=== PATIENT | male | born 1955 | race Two or more races ===

== ENCOUNTER 2024-12-02 08:37 | Outpatient (AMB) | payer OTHER, SELFPAY ==
--- NOTE | 2024-12-02 08:44 | MHC.PC.OV ---
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 Accompanied by: Son Allergies No Known Allergies Allergy (Verified 12/02/24 09:06) Medication List - Last Reconciled 12/02/24 by Laura Orlando MD apixaban (Eliquis) 5 mg PO BID cholecalciferol (vitamin D3) 25 mcg PO DAILY dapagliflozin propanediol (Farxiga) 5 mg PO DAILY dulaglutide (Trulicity) 3 mg subcut QWEEK finasteride 5 mg PO DAILY furosemide 20 mg PO DAILY glimepiride 4 mg PO DAILY losartan 25 mg PO DAILY metoprolol succinate ER 50 mg PO BID omega-3 fatty acids 1,000 mg PO DAILY rosuvastatin 40 mg PO DAILY tamsulosin 0.4 mg PO DAILY Tobacco use date assessed: 12/02/24 Fall risk assessment: 2 + Falls in past year Last assessed Fall Risk: 12/02/24 Dental Screening Dental Screen Date: 12/02/24 Did you have a dental visit in the last 12 months?: Yes Did you have a dental problem in the last 6 months where you did not have access to dental care?: No Was dental information given to patient?: Patient has dentist HPI HPI Comments History of Present Illness Details The patient is a 69-year-old male presenting with a history of atrial fibrillation, for which he is on anticoagulation therapy with Eliquis. This condition was identified several years ago while residing in [place]. A defibrillator was placed to manage atrial fibrillation. He has a history of benign prostatic hyperplasia, managed with medication, and no known drug allergies. His medical regimen also includes Farxiga and Trulicity for type 2 diabetes mellitus. The diabetes medication adjustment was due to a recent hemoglobin A1c reading of 8.0%, requiring increased medication management. Heart failure is managed with furosemide, and he monitors daily weight for fluid retention signs. He also has a history of hypertension, managed with losartan, and hyperlipidemia treated with rosuvastatin. Metoprolol and tamsulosin are included in his medications. The patient recalls frequent consultations with his classroom monitor every two months for ongoing check-up and mentions chronic kidney issues related to diabetes. He denies any medication allergies and manages his medication regimen daily. [facility] Surgical History History of cataract surgery History of pacemaker History of back surgery Family History Father No problems noted. Mother Alzheimer disease Social History Housing: House Alcohol intake: current Alcohol intake frequency: holidays/special occasions only Alcohol type: beer Patient Tobacco Use Status: Never used Tobacco e-Cigarette/Vaping Use: Never Used Second Hand Smoke Exposure: No service: No Current occupational status: retired Cognitive needs: Yes Hearing needs: No Vision needs: Yes Questionnaire PHQ-9 Over the last 2 weeks, how often have you been bothered by any of the following problems? 1. Little interest or pleasure in doing things: not at all 2. Feeling down, depressed, or hopeless: not at all 3. Trouble falling or staying asleep, or sleeping too much: not at all 4. Feeling tired or having little energy: not at all 5. Poor appetite or overeating: not at all 6. Feeling bad about yourself - or that you are a failure or have let yourself or your family down: not at all 7. Trouble concentrating on things, such as reading the newspaper or watching television: not at all 8. Moving or speaking so slowly that other people could have noticed. Or the opposite - being so fidgety or restless that you have been moving around a lot more than usual: not at all 9. Thoughts that you would be better off or of hurting yourself in some way: not at all Total score: 0 Depression Screening Interpretation: Negative Depression Screening Done: Yes 71557 - PHQ-9 Billing: Yes Source: Developed by Drs. Dave Thomason, Tuyet Pang, Zaki Schulz and colleagues, with an educational damien from [employer]. Thrive Questionnaire Date Thrive assessed: 12/02/24 I am a: Patient What is your living situation today?: I choose not to answer this question Within the past 12 months, did the food you bought not last and you didn't have the money to get more?: I choose not to answer this question Within the past 12 months, did you worry whether your food would run out before you got money to buy more?: I choose not to answer this question Do you have trouble paying for medicines?: No Do you have trouble getting transportation to medical appointments?: I choose not to answer this question Do you have trouble paying your heating and electricity bill?: I choose not to answer this question Do you have trouble taking care of your child, family member or friend?: I choose not to answer this question Do you have trouble with day-to-day activities such as bathing, preparing meals, shopping, managing finances, etc.?: I choose not to answer this question Are you currently unemployed and looking for a job?: I choose not to answer this question Are you interested in more education?: I choose not to answer this question Please select the resources that you would like help with: None Currently or been in a relationship where the following occur: I choose not to answer THRIVE Score: 0 AUDIT C Alcohol Use Questionnaire (AUDIT-C) 1. How often do you have a drink containing alcohol?: Never Total Score: 0 Score Reviewed/Action Taken: No MYRA-7 AMB Questionnaire MYRA-7 Date MYRA - 7 assessed: 12/02/24 Feeling nervous, anxious, or on edge: 0 = Not at all Not being able to stop or control worryin = Not at all Worrying too much about different things: 0 = Not at all Trouble relaxin = Not at all Being so restless that it is hard to sit still: 0 = Not at all Becoming easily annoyed or irritable: 0 = Not at all Feeling afraid as if something awful might happen: 0 = Not at all Total MYRA-7 score (0-4 normal; 5-9 mild; 10-14 moderate; 15-21 severe): 0 Source: Developed by Drs. Dave Thomason, Tuyet Pang, Zaki Schulz and colleagues, with an educational damien from [employer]. MYRA-7 Assessment Billing MYRA-7 Assessment Tool: MYRA-7 Assessment 35139 Review of Systems Const All systems reviewed & are unremarkable except as noted in HPI and below Card Denies chest pain at rest, Denies chest pain with activity, Denies edema, Denies irregular heart rhythm, Denies claudication, Denies dyspnea, Denies dyspnea on exertion, Denies orthopnea, Denies paroxysmal nocturnal dyspnea and Denies slow heart rate Resp Denies cough, Denies dyspnea and Denies dyspnea on exertion GI Denies abdominal pain, Denies change in bowel habits, Denies excessive flatus, Denies nausea and Denies vomiting Physical exam (Primary Care) Vital Signs: Last Vital Signs Pulse 89 12/02/24 08:46 BP 126/70 12/02/24 08:46 Pulse Ox 98 12/02/24 08:46 Oxygen Delivery Method Room Air 12/02/24 08:46 BMI result Body Mass Index 24.0 Tobacco/Smoking Status: Tobacco use Status Tobacco use date assessed 12/02/24 12/02/24 08:59 Patient Tobacco Use Status Never used Tobacco 12/02/24 08:59 e-Cigarette/Vaping Use Never Used 12/02/24 08:59 PHQ-9: PHQ-9 Score PHQ-9: Total score 0 12/02/24 09:14 Depression Screening Interpretation: Negative Thrive Assessment: Date of Thrive Assessment Date Thrive assessed 12/02/24 12/02/24 08:47 Currently or been in a relationship where the following occur: I choose not to answer Const Limitations: ambulation with cane Resp Effort & Inspection: normal respiratory effort Auscultation: clear to auscultation bilaterally Cardio Jugular venous distension: no JVD Rate: regular rate Rhythm: regular rhythm Heart sounds: S1 normal heart sound present and S2 normal heart sound present Extrem General: Yes full ROM Coding Level of Care Code New Pt Level 4 (10733) Complex EM visit Add On G2211 Diagnoses Type 2 diabetes mellitus with hyperglycemia, without long-term current use of insulin E11.65 Diabetes mellitus type: type 2 Diabetes mellitus nursing home insulin use: without intermediate school teacher use Diabetes mellitus complication status: with hyperglycemia Essential hypertension I10 Hyperlipidemia LDL goal <70 E78.5 Chronic systolic (congestive) heart failure I50.22 BPH (benign prostatic hyperplasia) N40.0 Persistent atrial fibrillation I48.19 Additional Codes MYRA-7 Assessment Billing - MYRA-7 Assessment Tool: MYRA-7 Assessment 30023 ([id number]) PHQ-9 - 81184 - PHQ-9 Billing: Yes ([id number]) Time Spent (min) 25 Assessment & Plan Assessment & Plan (1) Diabetes mellitus: Code(s): E11.9 - Type 2 diabetes mellitus without complications Category: Medical Qualifiers: Diabetes mellitus type: type 2 Diabetes mellitus nursing home insulin use: without nursing home use Diabetes mellitus complication status: with hyperglycemia Qualified Code(s): E11.65 - Type 2 diabetes mellitus with hyperglycemia (2) Essential hypertension: Code(s): I10 - Essential (primary) hypertension Category: Medical (3) Hyperlipidemia LDL goal <70: Code(s): E78.5 - Hyperlipidemia, unspecified Category: Medical (4) Chronic systolic (congestive) heart failure: Code(s): I50.22 - Chronic systolic (congestive) heart failure Category: Medical (5) BPH (benign prostatic hyperplasia): Code(s): N40.0 - Benign prostatic hyperplasia without lower urinary tract symptoms Category: Medical (6) Persistent atrial fibrillation: Code(s): I48.19 - Other persistent atrial fibrillation Category: Medical Plan In managing the patient's conditions, continuing the anticoagulation Eliquis) and heart rate control for atrial fibrillation with the defibrillator were emphasized. The diabetes management plan included increasing Trulicity while continuing Farxiga, focusing on lowering the elevated A1c. Evaluating suspected chronic kidney disease and kidney function changes due to diabetes were noted. Chronic sinusitis was addressed with a nasal spray recommendation to relieve symptoms of headache and dizziness. Heart failure management was reinforced by continuing furosemide and daily weight checks. The importance of adhering to his current medication regimen for hypertension and hyperlipidemia was reiterated. Equipment for home safety remains under insurance approval, emphasizing stability to prevent falls. Patient was informed and verbally consented to the use of an ambient scribe for clinic note documentation during this visit. I discussed with the patient the importance of staying on the current medication regimen for atrial fibrillation, diabetes, blood pressure, and cholesterol management. The likely diagnosis of chronic sinusitis and its treatment with a nasal spray was explained, with expected symptom relief. We reviewed risks and benefits of all medications, particularly the adjustments necessary for diabetes management following the recent A1c results. I explained the potential impact of diabetes on kidney function and the rationale behind monitoring these changes. The patient was informed about the home safety equipment process and insurance approval timelines. We discussed the need for regular follow-ups with cardiologists and primary care to track progress and stability of chronic conditions. Orders: Orders Comprehensive [place]. Panel Fast 4 Months I50.22 - Chronic systolic (congestive) heart failure NT-proBNP 4 Months I50.22 - Chronic systolic (congestive) heart failure Vitamin B12 and Folate Today E53.8 - Deficiency of other specified B group vitamins Complete Blood Count Auto Diff Today D64.9 - Anemia, unspecified IRON PROFILE Today D64.9 - Anemia, unspecified Vitamin D 25-OH Total 4 Months E55.9 - Vitamin D deficiency, unspecified Microalbumin, Random (w Creat) 4 Months R80.9 - Proteinuria, unspecified Lipid Panel 4 Months E78.5 - Hyperlipidemia, unspecified Medications: New [safety toilet frame] As directed 1 ea 0RF M51.369 - Other intervertebral disc degeneration, lumbar region without mention of lumbar back pain or lower extremity pain Patient Instructions: - Continue taking all current medications as prescribed. - Use the nasal spray as discussed for sinusitis relief. - Monitor your weight daily and report any significant changes to your doctor. - Keep regular appointments with your classroom monitor every two months. - Follow up with your primary care for routine health evaluations. - Be mindful of medication adherence, especially with newly adjusted doses. - Watch for symptoms like chest pain or rapid weight changes and contact healthcare services if they arise.
[2024-12-02 08:46] VITALS: BP 126/70; PULSE 89; O2SAT 98; BMI 24.0
--- OUTSIDE RECORDS SUMMARY | 2024-12-02 09:03 | XMS_ITS | Clinical Summary ---
Author Organization [facility] Address [address] [place] [address] Care Team Providers Care Senior Hr Generalist Name Role Phone Carola Siddiqi PA-C Primary Care Provider Source Comments PLEASE NOTE, if this patient is a minor, it may be UNLAWFUL to discuss sensitive information that is contained in these records (such as FAMILY PLANNING, MENTAL HEALTH or SUBSTANCE ABUSE) with the minor patient's parent or other person without the patient's specific authorization.[facility] Allergies No known active allergies Medications cholecalciferol, vitamin D3, 25 mcg (1,000 unit) tablet Take 1 Tablet by mouth once daily Active ammonium lactate 12 % cream 021 Active blood-glucose meter monitoring kitIndications:T ype 2 diabetes mellitus with diabetic cataract, without long-term current use of insulin ([facility]) Use to check BG 1x/d DX E11.42 Freestyle Lite 1 Each 022 Active ELIQUIS 5 mg tabIndications:H /O right heart catheterization, AICD (automatic cardioverter/def ibrillator) present Take 1 Tablet by mouth 2 (two) times daily 180 Tablet 1 022 Active finasteride (PROSCAR) 5 mg tablet Take 5 mg by mouth 04/13/2022 FINASTERIDE 5 MG TABLET [place], [place] [phone] 90.00 Each 2 90 2 Outside Sources Authorized by: FRITZ CARLIN Active metoprolol succinate (TOPROL-XL) 50 mg 24 hr tablet Take 75 mg by mouth 04/13/2022 METOPROLOL SUCC ER 50 MG TAB [place], [place] [phone] 270.00 Each 1 90 2 Outside Sources Authorized by: MIKE MARSHALL 022 Active tamsulosin (FLOMAX) 0.4 mg 24 hr capsule Take 0.4 mg by mouth Active metoprolol tartrate (LOPRESSOR) 50 mg tablet twice a day Active MISCELLANEOUS MEDICAL SUPPLY MISCIndications: Stress incontinence of urine by miscellaneous route once daily Male incontinence pads. DX: urinary incontinence SOBIA: 99 100 Each 3 024 Active ketorolac (ACULAR) 0.5 % ophthalmic solution 024 Active prednisoLONE acetate (PRED-FORTE) 1 % ophthalmic suspension 024 Active tadalafiL (CIALIS) 5 mg tablet Take 1 Tablet by mouth as needed Active blood pressure kit med and lrgIndications:P rimary hypertension Medium blood pressure kit SOBIA: 99 DX: htn 1 Kit 024 Active MISCELLANEOUS MEDICAL SUPPLY MISCIndications: Gait instability by miscellaneous route once daily Raised toilet seat with handles DX: urinary incontinence, gait instability SOBIA: 99 1 Each 024 Active losartan (COZAAR) 25 mg tabletIndication s:Primary hypertension [place] 1 tableta por vIa oral erick vez al [place] 90 Tablet 1 024 Active rosuvastatin (CRESTOR) 40 mg tabletIndication s:Type 2 diabetes mellitus with diabetic cataract, without long-term current use of insulin ([facility]) [place] 1 tableta por via oral erick vez al tyrone 90 Tablet 1 024 Active lancets (FREESTYLE LANCETS) 28 gaugeIndications :Type 2 diabetes mellitus with diabetic cataract, without long-term current use of insulin ([facility]) Uselo para comprobar la DARION GLUCOSA DIARIA 100 Each 025 Active blood sugar diagnostic (FREESTYLE LITE STRIPS) stripsIndication s:Type 2 diabetes mellitus with diabetic cataract, without long-term current use of insulin ([facility]) [place]selo para comprobar la DARION GLUCOSA DIARIA 100 Each 025 Active MISCELLANEOUS MEDICAL SUPPLY MISCIndications: Diabetic polyneuropathy associated with type 2 diabetes mellitus (HCC-CMS),Type 2 diabetes mellitus with diabetic cataract, without long-term current use of insulin ([facility]) by miscellaneous route daily 1 pair of diabetic shoes with inserts DX: DM, polyneuropathy secondary to DM SOBIA: 99 1 Each 025 Active amoxicillin (AMOXIL) 500 mg capsuleIndicatio ns:Encounter for dental examination Take 1 Capsule by mouth 1 (one) time as needed for other reason (premedication) for up to 1 dose Take 4 capsules 30 min to 1 hr before the dental dania 16 Capsule 025 Active glimepiride (AMARYL) 2 mg tabletIndication s:Type 2 diabetes mellitus with hyperglycemia, without long-term current use of insulin ([facility]) TAKE ONE TABLET BY MOUTH IN THE MORNING AND TWO TABLET IN THE EVENING 270 Tablet 1 025 Active dapagliflozin propanediol (FARXIGA) 10 mg tabIndications:T ype 2 diabetes mellitus with diabetic polyneuropathy, without long-term current use of insulin ([facility]) [place] 1 tableta por vIa oral a diario. 90 Tablet 1 025 Active dulaglutide (TRULICITY) 4.5 mg/0.5 mL pen injectorIndicati ons:Type 2 diabetes mellitus with diabetic polyneuropathy, without long-term current use of insulin ([facility]) Inject 4.5 mg into the skin once a week 2 mL 2 025 Active glimepiride (AMARYL) 2 mg tabletIndication s:Type 2 diabetes mellitus with hyperglycemia, without long-term current use of insulin ([facility]) Take 1 tablet by mouth in AM and 2 tablets in PM. DXE 11.36 270 Tablet 1 024 2024 Discontinued FARXIGA 10 mg tabIndications:T ype 2 diabetes mellitus with hyperglycemia, without long-term current use of insulin ([facility]) [place] 1 tableta por vIa oral a diario. 90 Tablet 1 024 2024 Discontinued(R eorder (E-Cancel Not Sent)) furosemide (LASIX) 20 mg tablet Take 1 Tablet by mouth daily as needed (edema). 024 2024 Discontinued(O utdated-Remove d from Med List (E-Cancel Not Sent)) dulaglutide (TRULICITY) 4.5 mg/0.5 mL pen injectorIndicati ons:Type 2 diabetes mellitus with diabetic cataract, without long-term current use of insulin ([facility]) Inject 4.5 mg into the skin once a week 2 mL 2 025 2024 Discontinued(R eorder (E-Cancel Not Sent)) Active Problems Problem Noted Date Diagnosed Date Orthostatic hypotension 04/10/2024 Overview (06/03/2024): Last Assessment & Plan: See plan above. Gait instability 12/05/2023 Acquired hammer toe of left foot 07/20/2022 Foot drop 02/14/2022 Overview (02/14/2022): Last Assessment & Plan: Would benefit from AFO Spinal stenosis 02/14/2022 Overview (02/14/2022): no surgery Last Assessment & Plan: With sig back pain and decreased mobility, no hx of surgery or injections, will need orthopedist eval Lumbar stenosis with neurogenic claudication 07/202212/21/2022 Overview (12/21/2022): Last Assessment & Plan: With sig back pain and decreased mobility, no hx of surgery or injections, will need orthopedist eval no surgery Last Assessment & Plan: Patient describes low back pain radiating to the hips and down to the calves for at least a year, he states the last week has been much worse, he is having to sleep with a lidocaine patch on his back, the pain radiates from the neck down to the low back. He denies any symptoms in the arms. He notes pain in the right >left legs (primarily the calves), has history of knee arthritis bilaterally. He has an exercise bike at home that he uses, feels good while he is using it and for a short time after, then the pain returns. He states he no longer goes out shopping, if he goes to the grocery store with his he stays in the car. He does not walk any significant distances, if they have to park the car they can park close to the building so he does not have to walk. He has been using a cane for about 6 years, has history of dizziness. When he used to go to the grocery store and walk around his legs would feel heavy and tired. He he states there are days when his pain is a 10/10, about 3 to 4 days a week. He has been taking Tylenol regularly to help his pain. Patient had MRI lumbar spine 10/19/2022 at [facility] that shows multilevel degenerative changes, his worst level is L4-5 with central stenosis, bilateral DJD and bilateral synovial cysts. I reviewed the MRI images in detail on the computer with the patient and his . Dr. Marie reviewed the MRI on today's visit as well. Mr. Le describes low back pain, bilateral leg symptoms, worse with walking distances. We talked about conservative treatment measures like PT or acupuncture, he asked about cortisone injections however I did let him know that can elevate his blood sugars. Dr. Marie can offer him L4-5 decompression to see if it will help with his walking symptoms and some back pain, patient is aware surgery is not aimed at helping all his chronic back pain. Patient would like to proceed with surgery if he is medically cleared. Patient has multiple medical issues, is on Eliquis, has a defibrillator, yesterday's labs showed creatinine elevated 1.59, GFR 47, he has history of an old VT. Patient has diabetes but his A1c yesterday was 8.0. I asked patient to call his PCP and appliance repair technician for medical clearance for surgery, he is aware he would have to be able to stop his Eliquis, see if they would want him bridging. We talked about the surgery, risks and benefits in detail, including but not limited to need for general anesthesia, risk for heart attack or stroke, damage to a nerve root, weakness, hematoma, infection, no improvement in symptoms. Hibiclens body wash and instruction sheet given to patient. All questions answered with professor of early childhood education, he will call with any concerns or additional questions. 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 -Continue warfarin for goal INR 2-3. If time in therapeutic INR range is suboptimal, he may be switched to a DOAC. Bilateral carpal tunnel syndrome 06/20/2021 Overview (02/14/2022): Last Assessment & Plan: Will likely need EMG/NCS of UE and CTR at least on R Microalbuminuria 04/05/2021 Type II diabetes mellitus wi th renal manifestations ([facility]) 04/05/2021 Diabetic polyneuropathy asso ciated with type 2 diabetes mellitus ([facility]) 12/24/2019 Overview (08/18/2021): Used to see podiatry (Dr. Hoyt) Benign prostatic hyperplasia with urinary hesita ncy 12/22/2019 Internal hemorrhoids 06/20/2019 CKD (chronic kidney disease) stage 3, GFR 30-59 ml/min ([facility]) 11/21/2018 Bilateral chronic knee pain 06/07/2017 Pulmonary hypertension ([facility]) 06/01/2017 Overview (08/18/2021): Severe, cardiac cath 10/11/2016 AICD (automatic cardioverter/defibrillator) pres ent 05/23/2017 Overview (08/18/2021): Single chamber, placed in [place] [facility] #[phone], #[phone]) Anxiety and depression 05/23/2017 B12 deficiency 05/23/2017 Chronic lumbar radiculopathy 05/23/2017 OA (osteoarthritis) of knee 05/23/2017 Overview (08/18/2021): See LS xray 2017 - mod-severe DJD hips, incompletely visualized. bilateral Diabetes mellitus with diabetic cataract ([facility]) 05/23/2017 Overview (08/18/2021): Bilateral GERD (gastroesophageal reflux disease) 7 Hypercholesteremia 05/23/2017 Hypertension 05/23/2017 Mitral valve regurgitation 05/23/2017 Systolic CHF (HCC-CMS) 05/23/2017 Overview (08/18/2021): S/p single chamber AICD EF 10-20 % Encounters Date Type Department Care Team Description 11/26/2024 Results Follow-Up [address] [phone] Morgan Martinez, PharmD 11/25/2024 1:40 PM EDT Office Visit [facility] [address] [place] [phone] Morgan Martinez, PharmD Type 2 diabetes mellitus with diabetic polyneuropathy, without long-term current use of insulin ([facility]) (Primary Dx); Primary hypertension 11/20/2024 10:00 AM EDT Office Visit [facility] [address] [place] [phone] Survey Worker, Bu Non-restorable tooth (Primary Dx); Caries of dentin 11/06/2024 3:00 PM EDT Office Visit [address] [phone] Survey Worker, Bu Encounter for dental examination (Primary Dx) 10/29/2024 11:00 AM EDT Office Visit [address] [phone] Survey Worker, Bu Non-restorable tooth (Primary Dx) 10/21/2024 2:20 PM EDT Office Visit [address] [phone] [place] DDS Encounter for dental examination (Primary Dx) 10/09/2024 1:00 PM EST Office Visit [address] [phone] Phil Xiong, Alisha Gallegos Diabetic polyneuropathy associated with type 2 diabetes mellitus ([facility]); Type 2 diabetes mellitus with diabetic cataract, without long-term current use of insulin ([facility]) 10/09/2024 Interim Notes [address] [phone] Judy Rogel MA 09/09/2024 Interim Notes [facility] [address] [place] [phone] Julieta Pino MA from Last 3 Months Immunizations Immunization Administration Dates Next Due Flu, Adjuvant, 65y+ (Fluad) 05/23/2017 Flu, Cell Culture based, Mul ti Dose, 6m+, Flucelvax 06/09/2018,06/09/2018 Flu, Cell Culture based, Pre servative Free, 6m+, Flucelvax 05/20/2020,05/20/2020,06/15/2019,06/15 Flu, High Dose, 65y+, Fluzon e High Dose 05/23/2023 Influenza (FLUZONE), high-do se, trivalent, PF 04/15/2024,06/09/2022,05/05/2021 Moderna COVID-19 Vaccine, re d cap blue label, 12+ Primary Series 03/25/2022,11/05/2020,10/08/2020 PNEUMOCOCCAL CONJUGATE PCV 13 04/05/2021, 021 PNEUMOCOCCAL CONJUGATE PCV 2 0 (Prevnar) 06/03/2024 PNEUMOCOCCAL POLYSACCHARIDE PPV23 06/16/2016 TDAP 06/16/2016 ZOSTER VACCINE, RECOMBINANT (SHINGRIX) ,12/21/2022 Zoster, Live Vaccine (Zostavax) 06/16/2016 Family History Medical History Relation Name Comments Diabetes Brother Heart attack Brother Heart attack Father Kidney disease Father Alzheimer's Disease Mother Cancer Sister Diabetes Sister Relation Name Status Comments Brother Father Mother Sister Social History Tobacco Use Types Packs/Day Years Used Date Smoking Tobacco: Never Passive Smoke Exposure: Never Smokeless Tobacco: Never Tobacco Cessation:Counseling Given: Not Answered Alcohol Use Standard Drinks/Week Comments Yes 1 (1 standard drink = 0.6 oz pur e alcohol) ocassional Social Connections Answer Date Recorded Connectedness 1 01/30/2024 Financial Resource Strain Answer Date R ecorded Financial Resource Strain 1 2023 Stress Answer Date Recorded Stress 1 01/30/2024 Physical Activity Answer Date Recorded Physical Activity 0 09/22/2020 Food Insecurity Answer Date Recorded Food 1 01/30/2024 Transportation Needs Answer Date Record ed Transportation 1 01/30/2024 Housing Stability Answer Date Recorded Housing 1 01/30/2024 Safety and Environment Answer Date Jayme rded Safety 1 01/30/2024 Utilities Answer Date Recorded Utilities 1 01/30/2024 Employment Answer Date Recorded Stress 0 10/24/2021 Sex and Gender Information Value Date Recorded Sex Assigned at Male 06/01/2021 6:43 AM PDT Legal Sex Male 11:22 AM PDT Gender Identity Male 06/01/2021 6:42 AM PDT Sexual Orientation Straight 08/18/2021 12 :05 PM PST Last Filed Vital Signs Vital Sign Reading Time Taken Comments Blood Pressure 110/80 11/25/2024 1:38 PM EDT Pulse 63 11/25/2024 1:38 PM EDT Temperature 36.8 ??C (98.3 ??F) 10/09/2024 1:00 PM ES T Respiratory Rate 18 11/25/2024 1:38 PM EDT Oxygen Saturation 99% 11/25/2024 1:38 PM EDT Inhaled Oxygen Concentration - - Weight 84.4 kg (186 lb) 11/25/2024 1:38 PM EDT Height 185.4 cm (6' 1 ) 11/25/2024 1:38 PM EDT Body Mass Index 24.54 11/25/2024 1:38 PM EDT Plan of Treatment Upcoming Encounters Date Type Department Care Team (Late st Contact Info) Description 12/17/2024 10:20 AM EDT Office Visit [facility] [address] [place] [phone] Clement Shaw, DMD [address] [place] [address] 01/13/2025 1:40 PM EDT Office Visit [address] [phone] Morgan Martinez, PharmD [address] [place] [address] Health Maintenance Due Date Last Done Comments CT Colonography 2000 Colonoscopy 2000 Colorectal Cancer Screening 2000 FIT/gFOBT 2000 Fecal DNA 2000 Flexible Sigmoidoscopy 2000 Diabetes Foot Exam 01/20/2023 01/20/2022 Retinopathy Screening 09/14/2023 09/14/2022, 022 [id number] ( season) 2024 03/25/2022, 06/07/2021, 11/05/2020, Additional history exists Postponed from 04/06/2024 (Patient postponement) Depression Monitoring 01/09/2025 10/09/2024 , 01/30/2024, 10/30/2023, Additional history exists Falls Prevention 01/29/2025 01/30/2024, 09/29/2021 Medicare Annual Wellness Visit 01/29/2025 01/30/2024, 12/21/2022 Tobacco Screening 01/29/2025 01/30/2024 Urine Albumin Creatinine Ratio Screening 01/31/2025 02/01/2024, 12/21/2022, 09/21/2021 Diabetes HbA1c 02/24/2025 11/25/2024, 08/07, 05/08/2024, Additional history exists Dental Prophy 03/03/2025 09/01/2024, 01/04, 07/16/2023, Additional history exists Lipid Screening 06/13/2025 06/13/2024, 01/05, 02/01/2024, Additional history exists Serum Creatinine 06/13/2025 06/13/2024, , 01/03/2024, Additional history exists Dental BW 09/03/2025 09/01/2024, 01/04, 07/16/2023, Additional history exists Dental Examination 09/03/2025 09/01/2024, 0 01/16/2024, 07/16/2023, Additional history exists Dental Perio Charting 09/03/2025 09/01/2024 , 01/16/2024, 07/16/2023 Imm-DTaP/Tdap/Td (2 - Td or Tdap) 06/16/2026 06/16/2016 Dental FMX/Pano 12/18/2026 12/16/2021 Hepatitis C Screening Completed 12/21/2022 Imm-Zoster, Recombinant Completed 10/30/19 24, 12/21/2022, 06/16/2016 Imm-Influenza Completed 04/15/2024, 05/06, 06/09/2022, Additional history exists Imm-Pneumococcal 65+ Completed 06/03/2024, 04/05/2021, 04/05/2021, Additional history exists Alcohol and Drug Screen Completed 10/10/19, 01/30/2024, 10/30/2023, Additional history exists Procedures Procedure Name Priority Date/Time Associated Diagnosis Comments HGBA1C W/MPG Routine 11/25/2024 2:15 PM EDT Type 2 diabetes mellitus with diabetic polyneuropathy, without long-term current use of insulin ([facility]) GLUCOSE, BLOOD BY GLUCOSE MONITORING DEVICE (CLIA WAIVED)POCT Routine 11/25/2024 1:42 PM EDT Type 2 diabetes mellitus with diabetic polyneuropathy, without long-term current use of insulin ([facility]) INTRAORAL - PERIAPICAL FIRST RADIOGRAPHIC IMAGE Routine 11/20/2024 10:00 AM EDT Caries of dentin 13 EXTRACTION ERU TOOTH RQR REMV BONE &/SECTN TOOTH Routine 11/20/2024 10:00 AM EDT Non-restorable tooth Caries of dentin 12 EXTRACTION ERU TOOTH RQR REMV BONE &/SECTN TOOTH Routine 11/20/2024 10:00 AM EDT Non-restorable tooth Caries of dentin 11 EXTRACTION ERU TOOTH RQR REMV BONE &/SECTN TOOTH Routine 11/20/2024 10:00 AM EDT Non-restorable tooth Caries of dentin CASE PRESENTATION SUBS DTL & EXTENSIVE TX PLN Routine 11/20/2024 10:00 AM EDT Non-restorable tooth Caries of dentin 14 EXTRACTION ERUPTED TOOTH OR EXPOSED ROOT Routine 11/20/2024 10:00 AM EDT Non-restorable tooth Caries of dentin OTHER ORDERS SCANNED DOCUMENT 11/20/2024 3:00 AM EDT CASE PRESENTATION SUBS DTL & EXTENSIVE TX PLN Routine 11/06/2024 3:00 PM EDT Encounter for dental examination 6 EXTRACTION ERUPTED TOOTH OR EXPOSED ROOT Routine 11/06/2024 3:00 PM EDT Encounter for dental examination 5 EXTRACTION ERUPTED TOOTH OR EXPOSED ROOT Routine 11/06/2024 3:00 PM EDT Encounter for dental examination 4 EXTRACTION ERUPTED TOOTH OR EXPOSED ROOT Routine 11/06/2024 3:00 PM EDT Encounter for dental examination OFFICE VISIT OBSERVATION NO OTHER SRVC PERFORMED Routine 10/29/2024 11:00 AM EDT Non-restorable tooth 15 EXTRACTION ERUPTED TOOTH OR EXPOSED ROOT Routine 10/21/2024 2:20 PM EDT Encounter for dental examination OTHER ORDERS SCANNED DOCUMENT 09/23/2024 3:00 AM EST OTHER ORDERS SCANNED DOCUMENT 09/16/2024 3:00 AM EST OTHER ORDERS SCANNED DOCUMENT 09/11/2024 3:00 AM EST REFERRAL SCANNED DOCUMENT 09/03/2024 3:00 AM EST COMP PERIODONTAL EVALUATION - NEW/EST PATIENT Routine 09/01/2024 1:40 PM EST Encounter for dental examination BITEWINGS - FOUR RADIOGRAPHIC IMAGES Routine 09/01/2024 1:40 PM EST Encounter for dental examination PROPHYLAXIS - ADULT Routine 09/01/2024 1 :40 PM EST Encounter for dental examination PERIODIC ORAL EVALUATION ESTABLISHED PATIENT Routine 09/01/2024 1:40 PM EST Encounter for dental examination COMPREHENSIVE METABOLIC PANEL Routine 06/13/2024 8:44 AM EST Type 2 diabetes mellitus with hyperglycemia, without long-term current use of insulin ([facility]) Primary hypertension Hypercholesteremia LIPID PANEL Routine 06/13/2024 8:44 AM EST Type 2 diabetes mellitus with hyperglycemia, without long-term current use of insulin ([facility]) Hypercholesteremia MICROALBUMIN/CREATININ E RATIO, URINE, RANDOM Routine 02/01/2024 10:20 AM EDT Type 2 diabetes mellitus with hyperglycemia, without long-term current use of insulin ([facility]) ACUTE HEPATITIS PANEL W/RFLX Routine 12/21/2022 9:29 AM EDT Routine screening for STI (sexually transmitted infection) REFERRAL TO OPHTHALMOLOGY 09/14/2022 3:00 AM EST INTRAORAL - COMP SERIES OF RADIOGRAPHIC IMAGES Routine 12/16/2021 3:00 PM EDT Encounter for dental examination from Last 3 Months or Most Recently Relevant to Health Maintenance Results * (ABNORMAL) HGBA1C W/MPG (11/25/2024 2:15 PM EDT) HEMOGLOBIN A1C 8.3(H) <5.7 % [facility] Comment: For someone without known diabetes, a hemoglobin A1c value of 6.5% or greater indicates that they may have diabetes and this should be confirmed with a follow-up test. For someone with known diabetes, a value <7% indicates that their diabetes is well controlled and a value greater than or equal to 7% indicates suboptimal control. A1c targets should be individualized based on duration of diabetes, age, comorbid conditions, and other considerations. Currently, no consensus exists regarding use of hemoglobin A1c for diagnosis of diabetes for children. ?? MEAN PLASMA GLUCOSE 218 mg/dL (calc) [facility] Blood Blood / Unknown 11/25/2024 2 :15 PM EDT 11/25/2024 2:16 PM EDT Narrative [facility] VICTORIANO - 11/26/2024 4:59 AM EDT FASTING:NO Morgan Knapparrkassie FinnGonzalez PharmD LAB - BLOOD D RAW Final Result [facility] [address] [address], [facility] [address] [place] [phone] * (ABNORMAL) GLUCOSE, BLOOD BY GLUCOSE MONITORING DEVICE (CLIA WAIVED)POCT (11/25/2024 1:42 PM EDT) GLUCOSE 147(A) 70 - 100 mg/dL [facility] POCT Capillary Blood Blood / Unknown 1:42 PM EDT Morgan Knapparria Gonzalez PharmD LAB - BLOOD D RAW Final Result Performing Organization Address City/[facility]/ZIP Co de Phone Number [facility] POCT * OTHER ORDERS SCANNED DOCUMENT (11/20/2024 3:00 AM EDT) Only the most recent of4 resultswithin the time period is included. 11/20/2024 3:00 AM EDT Rosimar Siddiqi PA-C SCAN OTHER ORDERS Final Resu lt * REFERRAL SCANNED DOCUMENT (09/03/2024 3:00 AM EST) 09/03/2024 3:00 AM EST Rosimar Siddiqi PA-C SCAN REFERRAL Final Result * (ABNORMAL) LIPID PANEL (06/13/2024 8:44 AM EST) CHOLESTEROL, TOTAL 190 <200 mg/dL [facility] HDL CHOLESTEROL 55 > OR = 40 mg/dL [facility] TRIGLYCERIDES 198(H) <150 mg/dL [facility] LDL-CHOLESTEROL 103(H) 99 mg/dL (calc) [facility] Comment: Reference range: <100 Desirable range <100 mg/dL for primary prevention; ?? <70 mg/dL for patients with CHD or diabetic patients with > or = 2 CHD risk factors. LDL-C is now calculated using the Alessandro calculation, which is a validated novel method providing better accuracy than the Friedewald equation in the estimation of LDL-C. Eros VENCES et al. WAGNER. 2013;310(38): 2936-2297 (http://education.[employer]/faq/MCC330) CHOL/HDLC RATIO 3.5 <5.0 (calc) [facility] NON-HDL CHOLESTEROL 135(H) <130 mg/dL (calc) [facility] Comment: For patients with diabetes plus 1 major ASCVD risk factor, treating to a non-HDL-C goal of <100 mg/dL (LDL-C of <70 mg/dL) is considered a therapeutic option. Blood Blood / Unknown 06/13/2024 8 :44 AM EST 06/13/2024 8:44 AM EST Narrative [facility] - 06/14/2024 7:41 AM EST FASTING:YES us Carola Siddiqi PA-C LAB - BLOOD DRAW Final Resul t [facility] [address] [place] [id number], [facility] [address] [place] [id number] * (ABNORMAL) COMPREHENSIVE METABOLIC PANEL (06/13/2024 8:44 AM EST) GLUCOSE 167(H) 65 - 99 mg/dL [facility] Comment: ?Fasting reference interval For someone without known diabetes, a glucose value >125 mg/dL indicates that they may have diabetes and this should be confirmed with a follow-up test. UREA NITROGEN (BUN) 25 7 - 25 mg/dL [facility] CREATININE (blood) 1.40(H) 0.70 - 1.35 mg/dL [facility] EGFR 55(L) > OR = 60 mL/min/1. 73m2 [facility] BUN/CREATININE RATIO 18 6 - 22 (calc) [facility] SODIUM 141 135 - 146 mmol/L [facility] POTASSIUM 4.5 3.5 - 5.3 mmol/L [facility] CHLORIDE 103 98 - 110 mmol/L [facility] CARBON DIOXIDE 29 20 - 32 mmol/L [facility] CALCIUM 9.6 8.6 - 10.3 mg/dL [facility] PROTEIN, TOTAL 7.0 6.1 - 8.1 g/dL [facility] ALBUMIN 4.1 3.6 - 5.1 g/dL [facility] GLOBULIN 2.9 1.9 - 3.7 g/dL (calc) [facility] ALBUMIN/GLOBULI N RATIO 1.4 1.0 - 2.5 (calc) [facility] BILIRUBIN, TOTAL 0.6 0.2 - 1.2 mg/dL [facility] ALKALINE PHOSPHATASE 41 35 - 144 U/L [facility] AST 25 10 - 35 U/L [facility] ALT 31 9 - 46 U/L [facility] Blood Blood / Unknown 06/13/2024 8 :44 AM EST 06/13/2024 8:44 AM EST Narrative [facility] - 06/14/2024 7:41 AM EST FASTING:YES Carola Siddiqi PA-C LAB - BLOOD DRAW Final Resul t [facility] [address] [address], [facility] [address] [address] * MICROALBUMIN/CREATININE RATIO, URINE, RANDOM (02/01/2024 10:20 AM EDT) CREATININE, RANDOM URINE 118 20 - 320 mg/dL [facility] MICROALBUMIN 2.4 mg/dL [facility] Comment: Reference Range Not established MICROALBUMIN/CREA TININE RATIO, RANDOM URINE 20 <30 mg/g creat [facility] Comment: The ADA defines abnormalities in albumin excretion as follows: Albuminuria Category ?Result (mg/g creatinine) Normal to Mildly increased ?? <30 Moderately increased ? 30-299 Severely increased ? > OR = 300 The ADA recommends that at least two of three specimens collected within a 3-6 month period be abnormal before considering a patient to be within a diagnostic category. Urine Urine specimen / Unknown 02/01/2024 10:20 AM EDT 02/01/2024 10:21 AM EDT Narrative [facility] - 02/02/2024 6:20 PM EDT FASTING:YES Carola Siddiqi PA-C LAB - NO BLOOD DRAW Final Re sult [facility] [address] [address], [facility] [address] [address] * ACUTE HEPATITIS PANEL W/RFLX (12/21/2022 9:29 AM EDT) HEPATITIS A IGM ANTIBODY NON-REACT MARCELINA NON-REACT MARCELINA [facility] COMMENT [facility] HEPATITIS B SURFACE ANTIGEN NON-REACT MARCELINA NON-REACT MARCELINA [facility] HEPATITIS B CORE IGM ANTIBODY NON-REACT MARCELINA NON-REACT MARCELINA [facility] HEPATITIS C ANTIBODY NON-REACT MARCELINA NON-REACT MARCELINA [facility] SIGNAL TO CUT-OFF 0.04 <1.00 [employer] [facility] Comment: HCV antibody was non-reactive. There is no laboratory evidence of HCV infection. In most cases, no further action is required. However, if recent HCV exposure is suspected, a test for HCV RNA (test code 29657) is suggested. For additional information please refer to http://[employer]/faq/DUI15m3 (This link is being provided for informational/ educational purposes only.) Blood Blood / Unknown 12/21/2022 9 :29 AM EDT 12/21/2022 9:30 AM EDT Narrative [facility] - 12/21/2022 8:06 PM EDT FASTING:NO For additional information, please refer to http://[employer]/faq/ZCY946 (This link is being provided for informational/ educational purposes only.) us Carola Siddiqi PA-C LAB - BLOOD DRAW Final Resul t [facility] [address] [address], [facility] [address] [place] [address] * REFERRAL TO OPHTHALMOLOGY (09/14/2022 3:00 AM EST) 09/14/2022 3:00 AM EST Carola Siddiqi PA-C REFERRAL Final Result from Last 3 Months or Most Recently Relevant to Health Maintenance Insurance [facility] Member Subscriber Plan / Payer (Ef fective 2020-Present) Name:Tamra Leo Relation to Subscriber:Self Name:Ayaan Le Payer ID:[id number] Group ID:Not on file Type:Indemnity Address: [address] [place] [address] Care Teams Senior Hr Generalist Relationship Specialty Start Date End Date Carola Siddiqi PA-C [address] [place] [address] PCP - General FAMILY MEDICINEAMIRA 08/18/21
--- OUTSIDE RECORDS SUMMARY | 2024-12-02 09:03 | XMS_ITS ---
Author Organization [facility] Address [address] [place] [address] Care Team Providers Care Kiln Door Repairer Name Role Phone Carola Siddiqi PA-C Primary Care Provider Aravind Swanson Unavailable [phone] Allergies No Known Allergies REASON FOR VISIT At Risk Footcare, Toe Irritation Medications Medication SIG (Take, Route, Frequency, Duration) Notes Start Date End Date Status Fish Oil Not-Taking Crestor Not-Taking Januvia 100 MG 1 tablet Orally Once a day for 30 day(s) Not-Taking Warfarin Sodium Not- Taking Entresto 24-26 MG 1 tablet Orally Twic e a day for 30 day(s) Not-Taking Vitamin D3 Active Ammonium Lactate 12 % 1 application Exte rnally Twice a day for 30 days Active Tamsulosin HCl Activ e Trulicity 0.75 MG/0.5ML as directed Subcutaneous Active Extra Depth Orthopedic Shoes (1 Pair) with Customized Heat Molded Multidensity Innersoles (3 Pair) as directed Dx: NIDDM/Polyneuropathy (E11.42), Hammertoe Foot Deformity (M20.41,M20.42), Preulcerative Skin Lesion(s) (L85.1 06/12/2024 Active Rosuvastatin Calcium 40 MG 1 tablet Orally Once a day for 30 day(s) Active Tadalafil Active Metoprolol Tartrate 50 MG 1 tablet with food Orally Twice a day for 30 day(s) Active Randolph 3 Active Losartan Potassium 25 MG 1 tablet Orally Once a day for 30 day(s) Active eliquis 5 mg Active Farxiga 5 MG 1 tablet Orally Once a day for 30 day(s) Active Glimepiride 4 MG 1 tablet Orally twic e a day for 30 days Active Finasteride Active Furosemide 20 MG 1 tablet Orally Once a day for 30 day(s) Active Social History Tobacco Use: Social History Observation Description Date Details (start date - stop date) Never Smoker NA - NA Tobacco use other than smoking: Question Answer Notes Are you an other tobacco user? No Tobacco Control (Standard) Question Answer Notes Tobacco use: Nonsmoker Additional Findings: Tobacco non-user Current no nsmoker AUDIT-C (Standard) Question Answer Notes Did you have a drink containing alcohol in the p ast year? No Points 0 Interpretation Negative Vital Signs Height 6ft in 09/11/2024 Weight 189 lbs 09/11/2024 BMI 25.63 kg/m2 09/11/2024 Blood pressure systolic 120 mm Hg 09/11/19 25 Blood pressure diastolic 80 mm Hg 025 Procedures Procedure Date Ordered Date Performed Result Body Sit e 93890-QTZOVPB NAIL, 6 OR MORE 09/11/2024 N/A 82937-JLJI SKIN LESIONS, OVER 4 09/11/2024 N/A Encounters Encounter Location Date Provider Diagnosis [facility] [address] [address] 09/11/2024 Aravind Black Type 2 diabetes mellitus with diabetic polyneuropathy E11.42 ; Tinea unguium B35.1 ; Other hammer toe(s) (acquired), right foot M20.41 and Other hammer toe(s) (acquired), left foot M20.42 Assessments Encounter Date Diagnosis (ICD Code) Assessment Notes Treatment Notes Treatment Clinical Notes Section Notes 09/11/2024 Type 2 diabetes mellitus with diabetic polyneuropathy (ICD-10 - E11.42) 09/11/2024 Tinea unguium (ICD-10 - B35.1) 09/11/2024 Other hammer toe(s) (acquired), right foot (ICD-10 - M20.41) Response to treatment,Impro vement 09/11/2024 Other hammer toe(s) (acquired), left foot (ICD-10 - M20.42) Response to treatment,Impro vement Plan Of Treatment Pending Test Test Name Order Date [id number] NAIL, 6 OR MORE 09/11/2024 74026-YGMB SKIN LESIONS, OVER 4 09/11/19 25 Next Appt Details Follow Up: 3 Months, Reason: Provider Name:Aravind Blakc , 12/08/2024 10:45:00 AM, [address] , [address], [place], [address], Procedure Notes * Category Sub-Category Detail Notes Debride Nail 6-10 Nail debridement Due to the cl inical pathology outlined in the exam findings, performance of this nail treatment is medically necessary as its management by an unskilled/untrained nonprofessional would put this patients foot and overall health at risk. Therefore, debridement to affected nail(s), as described in exam ( TA, T1, T2, T3, T4, T5, T6, T7, T8, T9 ), was performed exclusively by the physician of record to reduce/remove overall nail length, girth, thickness, subungual debris, and necrotic tissue, by manual and/or electrical means through the use of a nail nipper and/or dremel-type head grinder, to a more viable healthy nail plate or bed tissue 6-10 nails in total. Silver nitrate was used for any petechial bleeding as necessary. Definitive antifungal treatment options, both pharmaceutical and surgical, have been reviewed and discussed with the patient. The patient solely prefers the use of intermittent/as needed professional debridement services for their nail condition and understands the need for additional periodic treatments to maintain effectiveness in symptomatic relief - 61397 Keratoma Treatment Parring or Cutting o f Benign Hyperkeratotic Lesion(s) (-57) More than 4 Lesions - Due to the at risk nature of the patients medical condition as documented in the exam findings, performance of this keratoderma treatment is medically necessary as its management by an unskilled/untrained nonprofessional would put this patients foot and overall health at risk. Therefore, the benign hyperkeratotic lesions, ( 8 ) in total, locations as stated and described in the exam ( Medial plantar, IPJ, TA, Medial plantar, IPJ, T5, SUB MTH (s), 1, B/L , SUB MTH (s), 5, B/L , Plantar, Heel(s), B/L ), were pared, and/or cut utilizing a sterile 15 blade, tissue nippers, and/or power dremel instrumentation by the physician of record - 60419 Progress Notes * Bree FUNESOB:1955 (69 yo M)Acc No.[id number]:09/11/2024 Progress Note Patient:Ayaan LOZA Provider:?Aravind Black DPM :1955???Age:69 Y???Sex:Male Daniel e:09/11/2024 Address:[address] [place] [address] [place], [place] Pcp:Carola Siddiqi PA-C Subjective: * Chief Complaints: * ???At Risk FootcareToe Irrit ation * HPI: ???At Risk footcare:?Pt States Last PCP Visit:?Date?07/24/2024 ???Toe pain:?Treatments:?Rx shoes .? * ROS:?General/Constitutional:?Nausea?denies.?Vomiting?denies.?Hunger Thirst?denies.?Loss appetite?denies.?Chills?denies.?Fatigue?denies.?Fever?denies.?Night Sweats?denies.?Unexplained weight loss?denies.?Unexplained weight gain?denies.?HEENTM:?Dentures?denies.?Dizziness?denies.?Glasses/contacts?admits.?Retinopathy?den ies.?Blurred/double vision?denies.?TMJ?denies.?Discharge/drainage?denies.?Implants?denies.?Sore throat?denies.?Dental implants?denies.?Hard of hearing ?denies.?Difficulty chewing/swallowing/speaking?denies.?Nose bleeds?denies.?Sore mouth?denies.?Respiratory:?On O xygen?denies.?Pneumonia/pleurisy?denies.?Bronchitis?denies.?Emphysema?denies.?Co ughing?denies.?Cough blood?denies.?Shortness of breath?denies.?Wheezing?denies.?Cardiovascular:?Pacemaker?denies.?MVP?denies.?WPW?denies.?CHF?denies.?Heart attack?denies.?Septal defect?denies.?Rapid beat?denies.?Chest pain ?denies.?Atrial Fib.?denies.?Murmur/Palpitations?denies.?Gastrointestinal:?Hemorrhoids?denies.?Stomach/Abdominal pain?denies.?Dark blood stool?denies.?Irritable bowel ?denies.?Constipation?denies.?Diarrhea?denies.?Hematology:?Swelling?admits.?Clots?denies.?Varicose Veins?denies.?Bruising?admits, on anticoagulants.?Bleeding problem?admits, on anticoagulants.?Genitourinary:?Blood urine?denies.?Frequent/Painfu/urination/bladder control?denies.?Kidney stones?denies.?Infection (UTI)?denies.?Nephropathy?denies.?sex trans dis (STD)?denies.?Prostate?denies.?Musculoskeletal:?Hammertoes?admits.?Bunions?denies.?Back Pain?denies.?Muscle Cramps/ Resting?denies.?Muscle cramps / walking?denies.?Generalized aches and pains?denies.?Weakness?denies.?Integ.:?Guardado?denies.?Scars?denies.?Corns/calluses?admits.?Ingrown nails?admits.?Painful nails?denies.?Open Sores?denies.?Rashes?denies.?Neurologic:?Difficulty sleeping?denies.?Brain disorder?denies.?Numbness?denies.?Balance t rouble?admits.?Confusion?denies.?Fainting/blackouts?denies.?Tingling?denies.?Gael mors?denies.? * Medical History:? * Surgical History:?eye surger y (cataract) ack ataract surgery 2023 * Hospitalization/Major Diagno stic Procedure:?Denies Past Hospitalization * Family History:?Mother: dece ased.?Father: , heart attack, diagnosed with Diabetic - NIDDM.?Siblings: unknown, heart attack, diagnosed with Other malignant neoplasm of unspecified site.? * Social History:?Tobacco Use:?Tobacco use other than smoking?Are you an other tobacco user??No ?Tobacco Control (Standard)?Tobacco use:?Nonsmoker ?Additional Findings: Tobacco non-user?Current nonsmoker ???Drugs/Alcohol:?Drugs?Have you used drugs other than those for medical reasons in the past 12 months??No ???Miscellaneous:?Caffeine: yes, frequency:, 1-2 cups per day. ?Children: yes, 4. ?Exercise: no. ?Marital status: . ?Occupation: Retired. ???Drug/Alcohol:?AUDIT-C (Standard)?Did you have a drink containing alcohol in the past year??No ?Points?0 ?Interpretation?Negative * Medications:?Takingeliquis 5 mg Tablet Farxiga 5 MG Tablet 1 tablet Orally Once a day Finasteride Furosemide 20 MG Tablet 1 tablet Orally Once a day Glimepiride 4 MG Tablet 1 tablet Orally twice a day Losartan Potassium 25 MG Tablet 1 tablet Orally Once a day Metoprolol Tartrate 50 MG Tablet 1 tablet with food Orally Twice a day Randolph 3 Rosuvastatin Calcium 40 MG Tablet 1 tablet Orally Once a day Tadalafil Tamsulosin HCl Trulicity 0.75 MG/0.5ML Solution Pen-injector as directed Subcutaneous Vitamin D3 Ammonium Lactate 12 % Cream 1 application Externally Twice a day Extra Depth Orthopedic Shoes (1 Pair) with Customized Heat Molded Multidensity Innersoles (3 Pair) as directed Dx: NIDDM/Polyneuropathy (E11.42), Hammertoe Foot Deformity (M20.41,M20.42), Preulcerative Skin Lesion(s) (L85.1 Taking eliquis 5 mg Tablet Taking Farxiga 5 MG Tablet 1 tablet Orally Once a day Taking Finasteride Taking Furosemide 20 MG Tablet 1 tablet Orally Once a day Taking Glimepiride 4 MG Tablet 1 tablet Orally twice a day Taking Losartan Potassium 25 MG Tablet 1 tablet Orally Once a day Taking Metoprolol Tartrate 50 MG Tablet 1 tablet with food Orally Twice a day Taking Randolph 3 Taking Rosuvastatin Calcium 40 MG Tablet 1 tablet Orally Once a day Taking Tadalafil Taking Tamsulosin HCl Taking Trulicity 0.75 MG/0.5ML Solution Pen-injector as directed Subcutaneous Taking Vitamin D3 Taking Ammonium Lactate 12 % Cream 1 application Externally Twice a day Taking Extra Depth Orthopedic Shoes (1 Pair) with Customized Heat Molded Multidensity Innersoles (3 Pair) as directed Dx: NIDDM/Polyneuropathy (E11.42), Hammertoe Foot Deformity (M20.41,M20.42), Preulcerative Skin Lesion(s) (L85.1 Not-Taking/PRNWarfarin Sodium Entresto 24-26 MG Tablet 1 tablet Orally Twice a day Crestor Januvia 100 MG Tablet 1 tablet Orally Once a day Fish Oil Medication List reviewed and reconciled with the patientNot- Taking/PRN Warfarin Sodium Not-Taking/PRN Entresto 24-26 MG Tablet 1 tablet Orally Twice a day Not-Taking/PRN Crestor Not-Taking/PRN Januvia 100 MG Tablet 1 tablet Orally Once a day Not-Taking/PRN Fish Oil Medication List reviewed and reconciled with the patient * Allergies:?N.K.D.A.yes[Aller girolf Verified] Objective: * Vitals:?Ht:6ft, Wt:189, BMI: 25.63, Shoe size:11, BP:120/80mm Hg, BS:88, Ht-cm: 182.88 cm, Wt-k.73 kg. * ???Past Orders: ???Lab:HEMOGLOBIN A1C (GLYCO HEMOGLOBIN) (Order Date - 03/06/2024) (Collection Date & Time - 03/06/2024 02:23 PM) ? Value Reference Range ?HEMOGLOBIN A1C % (HH) 8.0 * Examination: ???Ophthalmology Referral: ?DIABETES EYE EXAM?Procedure Performed:?Yes ?Date of Exam Performed?06/09/2024 ?Diabetic Retinopathy Screening:?Yes ?Retinal Screening Performed:?Yes ?Findings of Diabetic Eye Exam:?no retinopathy?Neurological: ?SENSORY:?Neurological exam demonstrates, reduced light touch sensation, reduced sharp/dull pin prick discrimination , B/L, 5.07 monofilament test performed at plantar aspects of 5 varied sites per foot shows sensation, reduced , B/L.?Nails: ?NAILS are:?Elongated, overgrown, dystrophic, lytic, greater than 3mm thick, discolored and friable with crumbly malodorous subungual debris, TA, T1, T2, T3, T4, T5, T6, T7, T8, T9.?Dermatologic: ?SKIN FINDINGS:?Skin exam reveals Keratotic lesion(s) located at, Medial plantar, IPJ, TA, Medial plantar, IPJ, T5, SUB MTH (s), 1, B/L , SUB MTH (s), 5, B/L , Plantar, Heel(s), B/L.?Orthopedic: ?DIGITAL DEFORMITIES:?Digital contracture, PIPJ, 2-5 B/L, incompl-reducible to push-up test, no over, nor underlapping, there is no longer, evidence of shoe producing skin irritation.?FOOTWEAR:?good condition, exhibit proper fit and accommodation for pedal deformities. OT were inspected and noted to be worn, but in good condition giving proper support at the present time.?General Examination: ?GENERAL APPEARANCE:?Reveals a pleasant, alert, well nourished, well developed, well hydrated individual, who demonstrates proper attention to hygiene/body habitus, and is in no acute distress , Pt serves as own historian for office visit today.?ORIENTED:?person, place, and time.?FOOT EXAM:?Lower Extremity Neurological Exam performed:?Yes ?Visual exam of foot performed:?Yes ?Date?09/11/2024 ?Footwear Evaluation?Footwear Evaluation performed:?Yes??? Assessment: * Assessment: 1.?Type 2 diabetes mellitus with diabetic polyneuropathy - E11.42 (Primary)???2.?Tinea unguium - B35.1???3.?Other hammer toe(s) (acquired), right foot - M20.41???Specify :Chronic problem, Stable (1=3,2=4)???Notes :Response to treatment,Improvement???4.?Other hammer toe(s) (acquired), left foot - M20.42???Specify :Chronic problem, Stable (1=3,2=4)???Notes :Response to treatment,Improvement??? Plan: * Treatment: * Procedures:?Debride Nail 6-10:?Nail debridement?Due to the clinical pathology outlined in the exam findings, performance of this nail treatment is medically necessary as its management by an unskilled/untrained nonprofessional would put this patients foot and overall health at risk. Therefore, debridement to affected nail(s), as described in exam (??TA, T1, T2, T3, T4, T5, T6, T7, T8, T9?), was performed exclusively by the physician of record to reduce/remove overall nail length, girth, thickness, subungual debris, and necrotic tissue, by manual and/or electrical means through the use of a nail nipper and/or dremel-type head grinder, to a more viable healthy nail plate or bed tissue 6- 10 nails in total. Silver nitrate was used for any petechial bleeding as necessary. Definitive antifungal treatment options, both pharmaceutical and surgical, have been reviewed and discussed with the patient. The patient solely prefers the use of intermittent/as needed professional debridement services for their nail condition and understands the need for additional periodic treatments to maintain effectiveness in symptomatic relief - 64006.?Keratoma Treatment:?Parring or Cutting of Benign Hyperkeratotic Lesion(s)?(-57) More than 4 Lesions - Due to the at risk nature of the patients medical condition as documented in the exam findings, performance of this keratoderma treatment is medically necessary as its management by an unskilled/untrained nonprofessional would put this patients foot and overall health at risk. Therefore, the benign hyperkeratotic lesions, ( 8 ) in total, locations as stated and described in the exam (?Medial plantar, IPJ, TA, Medial plantar, IPJ, T5, SUB MTH (s), 1, B/L , SUB MTH (s), 5, B/L ,?Plantar,?Heel(s), B/L?), were pared, and/or cut utilizing a sterile 15 blade, tissue nippers, and/or power dremel instrumentation by the physician of record - 43503.? * Procedure Codes:?66360 DEBRI DE NAIL, 6 OR MORE, Modifiers: XS 64928 TRIM SKIN LESIONS, OVER 4, Modifiers: XS * Preventive Medicine:? ??Counseling:?Discussion:?-13: Office or other outpatient visit for the evaluation and management of an established patient, which required a medically appropriate history and/or examination and LOW level of DECISION MAKING for: 1 STABLE ACUTE UNCOMPLICATED PROBLEM, 2 OR MORE MINOR PROBLEMS, OR 1 STABLE CHRONIC PROBLEM, THAT POSE(S) A LOW RISK FOR MORBIDITY/MORTALITY. The visit on the day of the encounter encompassed interpreting the data and educating the patient as to the nature of their condition, treatment options available according to their individual PMH, meds, allergies, and overall health/living conditions, as well as any potential risks or complications that may occur from a failure to adhere to, and participate in, the recommended course of therapy. The discussion included a complete verbal, and/or written explanation of the examination results, any x-rays taken, the proposed diagnosis, and outline of the treatment plan. A schedule for future care needs was also explained. The patient verbalized an understanding of the instructions at this time and agreed to be an active participant in their treatment. If the patient should think of any questions or concerns after the visit, I have encouraged the patient to call the office.?Shoe Gear Counseling:?A thorough inspection of the patients Rxed shoegear and inserts was performed and findings communicated. We reviewed the many important medical advantages for adhering to regularly wearing these shoe and insert accomidative devices daily as well as reviewed the fact that a failure in accepting these recommedations may be deleterious, unable to prevent, and disadvantagely result in, many pedal complications such as skin irritation, skin ulceration, infection, and even loss of toe/foot/leg/or even their life. Time was also spent reviewing the proper footcare techniques including daily skin moisturization, daily foot inspection for any interruption in skin integrity, open lesions, or sign of infection such as redness/malodor/drainage/swelling as well as daily shoe inspection for the presence of internal foreign bodies and shoe as well as insert wear. Patient questions re: shoes, inserts, and self foot inspections were answered to their satisfaction as the patient verbally confirmed a full understanding of the above information.? ??Screening/Special Tests:?Fall Risk?Screening:?No falls in the past year ?FALLS: Screening for Future Fall Risk?Have you had any falls with injury in the past year??No * Follow Up:?3 Months * Images: * Sign off status: Completed true * Provider:?Aravind Black DPM Date:?2024 Generated for Leesa pittman/Nancy/Barbara on:?12/02/2024 09:03 AM EDT History and Physical Notes * HPI (History of Present Illness) Category Sub-Category Detail Notes Category Not es Toe pain Treatments: Rx shoes At Risk footcare Pt States Last PCP Visit: Date: 4 Examination Category Sub-Category Detail Notes Category Not es Neurological SENSORY: Neurological exa m demonstrates, reduced light touch sensation, reduced sharp/dull pin prick discrimination , B/L, 5.07 monofilament test performed at plantar aspects of 5 varied sites per foot shows sensation, reduced , B/L Dermatologic SKIN FINDINGS: Skin exam reveal s Keratotic lesion(s) located at, Medial plantar, IPJ, TA, Medial plantar, IPJ, T5, SUB MTH (s), 1, B/L , SUB MTH (s), 5, B/L , Plantar, Heel(s), B/L Orthopedic FOOTWEAR EVALUATION: good condit ion, exhibit proper fit and accommodation for pedal deformities. OT were inspected and noted to be worn, but in good condition giving proper support at the present time DIGITAL DEFORMITIES: Digital contracture , PIPJ, 2-5 B/L, incompl-reducible to push-up test, no over, nor underlapping, there is no longer, evidence of shoe producing skin irritation General Examination GENERAL APPEARANCE: Reveals a pleasant, alert, well nourished, well developed, well hydrated individual, who demonstrates proper attention to hygiene/body habitus, and is in no acute distress , Pt serves as own historian for office visit today FOOT EXAM: Lower Extremity Neurological Exa m performed:: Yes Visual exam of foot performed:: Yes Date: 09/11/2024 ORIENTED: person, place, and t sylvester Footwear Evaluation Footwear Evaluation performe d:: Yes Ophthalmology Referral DIABETES EYE EXAM Procedure Perform ed:: Yes ?Date of Exam Performed: 06/09/2024 Diabetic Retinopathy Screening:: Yes Retinal Screening Performed:: Yes Findings of Diabetic Eye Exam:: no retin opathy Nails NAILS are: Elongated, overg rown, dystrophic, lytic, greater than 3mm thick, discolored and friable with crumbly malodorous subungual debris, TA, T1, T2, T3, T4, T5, T6, T7, T8, T9
--- OUTSIDE RECORDS SUMMARY | 2024-12-02 09:03 | XMS_ITS | Patient Health Record ---
Author Organization [facility] Address [address] [place] [address] Care Team Providers Care Quality Assurance Supervisor Trim Name Role Phone Carola Siddiqi PA-C Primary Care Provider Aravind Swanson Unavailable [phone] Allergies No Known Allergies Results Component Value Reference Range Notes HEMOGLOBIN A1C (GLYCOHEMOGLO BIN) Reviewed date:03/06/2024 02:23:42 PM Interpretation: Performing Lab: Notes/Report: HEMOGLOBIN A1C % (HH) 8.0 Reason For Referral No Information Medications Medication SIG (Take, Route, Frequency, Duration) Notes Start Date End Date Status Vitamin D3 Active Ammonium Lactate 12 % 1 application Exte rnally Twice a day for 30 days Active Tamsulosin HCl Activ e Trulicity 0.75 MG/0.5ML as directed Subcutaneous Active eliquis 5 mg Active Farxiga 5 MG 1 tablet Orally Once a day for 30 day(s) Active Rosuvastatin Calcium 40 MG 1 tablet Orally Once a day for 30 day(s) Active Fish Oil Not-Taking Tadalafil Active Metoprolol Tartrate 50 MG 1 tablet with food Orally Twice a day for 30 day(s) Active Crestor Not-Taking [place] 3 Active Januvia 100 MG 1 tablet Orally Once a day for 30 day(s) Not-Taking Glimepiride 4 MG 1 tablet Orally twic e a day for 30 days Active Warfarin Sodium Not- Taking Losartan Potassium 25 MG 1 tablet Orally Once a day for 30 day(s) Active Entresto 24-26 MG 1 tablet Orally Twic e a day for 30 day(s) Not-Taking Finasteride Active Furosemide 20 MG 1 tablet Orally Once a day for 30 day(s) Active Extra Depth Orthopedic Shoes (1 Pair) with Customized Heat Molded Multidensity Innersoles (3 Pair) as directed Dx: NIDDM/Polyneuropathy (E11.42), Hammertoe Foot Deformity (M20.41,M20.42), Preulcerative Skin Lesion(s) (L85.1 06/12/2024 Active Social History Tobacco Use: Social History [...] ast year? No Points 0 Interpretation Negative Problems Problem Type SNOMED Code ICD Code Onset Dates Problem Status W/U Status Risk Notes Problem Acquired hammer toe of right foot (7601628845924317 ) Other hammer toe(s) (acquired), right foot (M20.41) Active confirmed Response to treatment, Improvemen t Problem Acquired hammer toe of left foot (4607445670394060 ) Other hammer toe(s) (acquired), left foot (M20.42) Active confirmed Response to treatment, Improvemen t Problem Polyneuropathy due to type 2 diabetes mellitus (746533352) Type 2 diabetes mellitus with diabetic polyneuropathy (E11.42) Active confirmed Vital Signs Blood pressure diastolic 80 mm Hg 09/11/2024 Height 6ft in 09/11/2024 Blood pressure systolic 120 mm Hg 09/11/2024 Weight 189 lbs 09/11/2024 BMI 25.63 kg/m2 09/11/2024 Procedures Procedure Date Ordered Date Performed Result Body Sit e 44591-LJIGCLI NAIL, 6 OR MORE 12/06/2023 N/A 51354-Qtalemwe Plate 12/06/2023 N/A 54035-Vrepcyrd Plate Each Additional 12/06/2023 N/A 58388-HJER SKIN LESIONS, OVER 4 12/06/2023 N/A 66908-FHPNULC NAIL, 6 OR MORE 03/06/2024 N/A 11386-Vmxfgyrg Plate 03/06/2024 N/A 07480-Sjmwmywa Plate Each Additional 03/06/2024 N/A 78591-RJMR SKIN LESIONS, OVER 4 03/06/2024 N/A 02957-OZDJBQH NAIL, 6 OR MORE 06/12/2024 N/A 80207-NQAO SKIN LESIONS, OVER 4 06/12/2024 N/A 09675-QINTLQK NAIL, 6 OR MORE 09/11/2024 N/A 81682-YPGF SKIN LESIONS, OVER 4 09/11/2024 N/A Encounters Encounter Location Date Provider Diagnosis [address] [address] 12/06/2023 Aravindstanford SarabiaSofia Type 2 diabetes mellitus with diabetic polyneuropathy E11.42 ; Tinea unguium B35.1 ; Ingrown nail L60.0 and Xerosis of skin L85.[address] [address] 03/06/2024 Aravind Sofia Type 2 diabetes mellitus with diabetic polyneuropathy E11.42 ; Tinea unguium B35.1 ; Ingrown nail L60.0 and Xerosis of skin L85.[address] [address] 06/12/2024 Aravind Sofia Type 2 diabetes mellitus with diabetic polyneuropathy E11.42 ; Tinea unguium B35.1 ; Other hammer toe(s) (acquired), right foot M20.41 and Other hammer toe(s) (acquired), left foot M20.[address] [address] 09/11/2024 Aravindstanford SarabiaSofia Type 2 diabetes mellitus with diabetic polyneuropathy E11.42 ; Tinea unguium B35.1 ; Other hammer toe(s) (acquired), right foot M20.41 and Other hammer toe(s) (acquired), left foot M20.42 Assessments Encounter Date Diagnosis (ICD Code) Assessment Notes Treatment Notes Treatment Clinical Notes Section Notes 12/06/2023 Type 2 diabetes mellitus with diabetic polyneuropathy (ICD-10 - E11.42) 12/06/2023 Tinea unguium (ICD-10 - B35.1) 03/06/2024 Type 2 diabetes mellitus with diabetic polyneuropathy (ICD-10 - E11.42) 03/06/2024 Tinea unguium (ICD-10 - B35.1) 06/12/2024 Type 2 diabetes mellitus with diabetic polyneuropathy (ICD-10 - E11.42) 06/12/2024 Tinea unguium (ICD-10 - B35.1) 09/11/2024 Type 2 diabetes mellitus with diabetic polyneuropathy (ICD-10 - E11.42) 09/11/2024 Tinea unguium (ICD-10 - B35.1) 09/11/2024 Other hammer toe(s) (acquired), right foot (ICD-10 - M20.41) Response to treatment,Impro vement 03/06/2024 Ingrown nail (ICD-10 - L60.0) 12/06/2023 Ingrown nail (ICD-10 - L60.0) 03/06/2024 Xerosis of skin (ICD-10 - L85.3) 06/12/2024 Other hammer toe(s) (acquired), right foot (ICD-10 - M20.41) Patient Educated with: DIABETIC FOOT CARE INSTRUCTIONS. pdf (DIABETIC FOOT CARE INSTRUCTIONS. pdf) 09/11/2024 Other hammer toe(s) (acquired), left foot (ICD-10 - M20.42) Response to treatment,Impro vement 06/12/2024 Other hammer toe(s) (acquired), left foot (ICD-10 - M20.42) 12/06/2023 Xerosis of skin (ICD-10 - L85.3) Plan Of Treatment Pending Test Test Name Order Date 94489-PJYPOZN NAIL, 6 OR MORE 12/01/2020 30509-OAKHUFV NAIL, 6 OR MORE 03/02/2021 01064-VUWHKFI NAIL, 6 OR MORE 06/01/2021 08719-PVCNLNL NAIL, 6 OR MORE 08/31/2021 63659-TOFUSKZ NAIL, 6 OR MORE 11/30/2021 80235-LFWHJAX NAIL, 6 OR MORE 03/01/2022 11497-HTRDPPU NAIL, 6 OR MORE 05/31/2022 39608-BJSOMQH NAIL, 6 OR MORE 08/30/2022 23544-BHAMAJB NAIL, 6 OR MORE 11/29/2022 48553-AMMATRD NAIL, 6 OR MORE 02/28/2023 83656-QSHEJGK NAIL, 6 OR MORE 05/30/2023 12495-YDBBXSX NAIL, 6 OR MORE 09/12/2023 57563-BHFUIIH NAIL, 6 OR MORE 12/06/2023 52965-YDCPQMP NAIL, 6 OR MORE 03/06/2024 83769-ZNINQJL NAIL, 6 OR MORE 06/12/2024 27043-VMKCOOC NAIL, 6 OR MORE 09/11/2024 97495-Wqmyjxyu Plate 03/06/2024 16874-Qccmjucs Plate 12/06/2023 50942-Hlvqgpze Plate 09/12/2023 75471-Immpzyxa Plate 06/01/2021 25177-Unaszxpm Plate 05/30/2023 52223-Zkkvkqza Plate 02/28/2023 66229-Tqxvrgjs Plate 11/29/2022 57704-Mbhxjpvi Plate 08/30/2022 28862-Lpdnjult Plate 05/31/2022 17075-Lgeejnhm Plate 03/01/2022 69690-Pxoyrqib Plate 11/30/2021 83058-Ynvecxcu Plate 08/31/2021 87889-Azgcpdkr Plate Each Additional 08/2023 66870-Veeeepnu Plate Each Additional 09/2023 55436-URSA SKIN LESIONS, OVER 4 09/11/19 25 13842-NOGV SKIN LESIONS, OVER 4 06/12/20 24 68095-RQUY SKIN LESIONS, OVER 4 03/06/20 24 84988-WZRU SKIN LESIONS, OVER 4 09/12/19 24 27668-XCEZ SKIN LESIONS, OVER 4 12/06/19 24 96436-SHHH SKIN LESIONS, OVER 4 11/30/19 23 77206-FEMA SKIN LESIONS, OVER 4 02/29/20 23 51929-IDMX SKIN LESIONS, OVER 4 05/30/20 23 35759-BOKI SKIN LESIONS, OVER 4 08/31/19 22 37655-JWIN SKIN LESIONS, OVER 4 06/01/20 21 41955-ODZV SKIN LESIONS, OVER 4 03/02/20 21 82831-VUMK SKIN LESIONS, OVER 4 12/02/19 21 11010-MVTQ SKIN LESIONS, OVER 4 12/01/19 22 57154-HNIO SKIN LESIONS, OVER 4 03/01/20 22 45748-LCMJ SKIN LESIONS, OVER 4 05/31/20 22 26702-WQCZ SKIN LESIONS, OVER 4 08/30/19 23 Next Appt Details Provider Name:Aravind Black , 12/08/2024 10:45:00 AM, [address] [facility], [address], [place], [address], Insurance Providers Payer Name Payer Address Payer Phone Subscriber Number Group Number Insured Name Patient Relationship to Insured Coverage Start Date Coverage End Date [facility] [employer] Claims [address] [place] [id number] Ayaan Le Self - patient is the insured Medical (General) History Medical History History ICD Code Arthritis Back,Hip,and Knee pain CAD Cataracts Cholesterol Diabetes mellitus Heart disease Surgical History Surgery Date(Month/Year) eye surgery (cataract) 02/2023 back 2022 cataract surgery 2023
--- OUTSIDE RECORDS SUMMARY | 2024-12-02 09:03 | XMS_ITS | Encounter Summary ---
Author Organization [facility] Address [address] [place] [address] Care Team Providers Care Extension Supervisor Name Role Phone Carola Siddiqi PA-C Primary Care Provider Encounter Details Date Type Department Care Team (Late st Contact Info) Description 11/26/2024 Results Follow-Up [facility] [address] [place] [id number] Morgan Martinez, PharmD [address] [place] [address] Social History Tobacco Use Types Packs/Day Years Used Date Smoking Tobacco: Never Passive Smoke Exposure: Never Smokeless Tobacco: Never Alcohol Use Standard Drinks/Week Comments Yes 1 [...] Orientation Straight 08/18/2021 12 :05 PM PST documented as of this encounter Nursing Notes * Maine Collazo - 11/28/2024 1:59 PM EDT Called patient twice , unable to reach , left vm * Maine Collazo - 11/28/2024 1:59 PM EDT ----- Message from Morgan Gonzalez sent at 11/26/2024 2:01 PM EDT ----- A1c continues to be elevated at 8.3%. Patient continued 3 mg Trulciity since last A1c was drawn never picked up 4.5 mg dose. During encounter patient advised to olive picker new dose. Patient was advised to follow healthy diet and exercise alsoPlease reiterate importance of diet and adherence to medications. Pharmacotherapy for diabetes: - Farxiga 10 mg daily - glimepiride 2 mg 1 tabs in AM and 2 tab in PM - Trulicity 4.5 mg weekly Please inform patient, thanks!!! * Maine Collazo - 11/26/2024 2:56 PM EDT Called pt 2x no answer * Maine Collazo - 11/26/2024 2:56 PM EDT ----- Message from Morgan Gonzalez sent at 11/26/2024 2:01 PM EDT ----- A1c continues to be elevated at 8.3%. Patient continued 3 mg Trulciity since last A1c was drawn never picked up 4.5 mg dose. During encounter patient advised to olive picker new dose. Patient was advised to follow healthy diet and exercise alsoPlease reiterate importance of diet and adherence to medications. Pharmacotherapy for diabetes: - Farxiga 10 mg daily - glimepiride 2 mg 1 tabs in AM and 2 tab in PM - Trulicity 4.5 mg weekly Please inform patient, thanks!!! documented in this encounter Miscellaneous Notes * Result Encounter Note - Morgan Gonzalez PharmD - 11/26/2024 2:01 PM EDT A1c continues to be elevated at 8.3%. Patient continued 3 mg Trulciity since last A1c was drawn never picked up 4.5 mg dose. During encounter patient advised to olive picker new dose. Patient was advised to follow healthy diet and exercise alsoPlease reiterate importance of diet and adherence to medications. Pharmacotherapy for diabetes: - Farxiga 10 mg daily - glimepiride 2 mg 1 tabs in AM and 2 tab in PM - Trulicity 4.5 mg weekly Please inform patient, thanks!!! documented in this encounter Plan of Treatment Upcoming Encounters Date Type Department Care Team (Late st Contact Info) Description 12/17/2024 10:20 AM EDT Office Visit [facility] [address] [place] [phone] Clement Shaw, DMD [address] [place] [id number] 01/13/2025 1:40 PM EDT Office Visit [address] [address] Morgan Martinez, PharmD [address] [place] [address] documented as of this encounter Visit Diagnoses Not on filedocumented in this encounter Additional Health Concerns Assessment Noted Time PHQ-9 Depression Total Score: 0 10/10/19 25 1:04 PM PST documented as of this encounter Care Teams Extension Supervisor Relationship Specialty Start Date End Date Carola Siddiqi PA-C [address] [place] [id number] PCP - General FAMILY MEDICINEAMIRA 08/18/21 documented as of this encounter
--- OUTSIDE RECORDS SUMMARY | 2024-12-02 09:03 | XMS_ITS | Clinical Summary ---
Author Organization [address] [place] [address] [address] [place] [address] Phone Care Team Providers Care Police Manager Name Role Phone Carola Siddiqi Primary Care Provider [phone] Allergies No known active allergies Medications tadalafiL (CIALIS) 5 mg tablet Take 1 Tablet by mouth as needed. Active acetaminophen (TYLENOL 8 HOUR) 650 mg 8 hr tablet Take 1 Tablet by mouth 2 times daily for 30 days. 3 Active finasteride (PROSCAR) 5 mg tablet Take 5 mg by mouth daily. Active cholecalciferol (VITAMIN D-3) 25 mcg (1,000 unit) tablet Take 1 tablet by mouth daily. Active FREESTYLE LANCETS [facility] Use to check blood sugar once a day 1 Active blood sugar diagnostic (FreeStyle Lite Strips) test strip Test blood sugar once daily 1 Active tamsulosin (FLOMAX) 0.4 mg 24 hr capsule Take 1 capsule by mouth daily. Take 30 mins after same meal every day. 1 Active Trulicity 4.5 mg/0.5 mL pen injector injection Inject 0.5 mL (4.5 mg total) under the skin 1 (one) time per week. 5 Active glimepiride (AMARYL) 4 mg tablet Take 1 tablet (4 mg total) by mouth 1 (one) time each day before breakfast. And two tablets in the afternoon Active omega 0-oki-hru-fish oil (Fish OiL) 1,000 (120-180) mg capsule Take by mouth 1 (one) time each day. Active metoprolol succinate (TOPROL-XL) 50 mg 24 hr tablet Take 2 tablets (100 mg total) by mouth 2 (two) times a day. Do not crush or chew. 360 each 3 5 09/03/19 Active apixaban (Eliquis) 5 mg tablet Take 1 tablet (5 mg total) by mouth 2 (two) times a day. 180 each 3 5 09/03/19 Active dapagliflozin propanediol (Farxiga) 10 mg tablet Take 1 tablet (10 mg total) by mouth 1 (one) time each day. 90 each 3 5 09/03/19 Active losartan (COZAAR) 25 mg tablet Take 1 tablet (25 mg total) by mouth 1 (one) time each day. 90 each 5 09/03/19 Active rosuvastatin (CRESTOR) 40 mg tablet Take 1 tablet (40 mg total) by mouth 1 (one) time each day. 90 each 5 09/03/19 Active Active Problems Problem Noted Date Diagnosed Date Costochondritis 05/05/2024 Orthostatic hypotension 04/10/2024 Assessment & Plan (09/03/2024 6:13 PM EST): - Continue being cautious, such as moving slowly and allowing time to adjust between positions to manage symptoms. Acquired hammer toe of left foot 07/20/2022 Foot drop 02/14/2022 Overview (05/13/2024): Last Assessment & Plan: Would benefit from AFO Last Assessment & Plan: Would benefit from AFO Lumbar stenosis with neurogenic claudication 07/2022 Overview (05/13/2024): Last Assessment & Plan: With sig back pain and decreased mobility, no hx of surgery or injections, will need orthopedist eval no surgery Last Assessment & Plan: Mr. Le is now approximately 2 weeks status post L4-5 decompression. Since the surgery, he has had almost complete relief from his preop symptoms. He has some residual right hip pain. We talked about nerve root healing and a timeline I reassured him. He is pleased with his early postoperative results and I would agree with him. He is welcome to follow-up with us on an as-needed basis. 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 He does have episodes of elevated heart rate in the past but did not have any on his last device check. His heart rate is well controlled on EKG. Continue to follow. He has not had any bleeding issues, and will continue his apixaban. Assessment & Plan (09/03/2024 6:13 PM EST): - Continue metoprolol for rate control. - Continue Eliquis 5 mg twice daily for cerebrovascular accident (CVA) prophylaxis. Bilateral carpal tunnel syndrome 06/20/2021 Overview (05/13/2024): Last Assessment & Plan: Will likely need EMG/NCS of UE and CTR at least on R Last Assessment & Plan: Will likely need EMG/NCS of UE and CTR at least on R Heart failure with reduced e jection fraction ([facility] V24, [facility] V28) 06/15/2021 Microalbuminuria 04/05/2021 Type II diabetes mellitus wi th renal manifestations ([facility] V24, [facility] V28) 04/05/2021 Diabetic polyneuropathy asso ciated with type 2 diabetes mellitus ([facility] V24, [facility] V28) 12/24/2019 Overview (05/13/2024): Used to see podiatry (Dr. Hoyt) Benign prostatic hyperplasia with urinary hesita ncy 12/22/2019 Degenerative joint disease (DJD) of hip 10/02/19 Overview (05/13/2024): See LS xray 2017 - mod-severe DJD hips, incompletely visualized. Internal hemorrhoids 06/20/2019 CKD (chronic kidney disease) stage 3, GFR 30-59 ml/min ([facility] V24, [facility] V28) 11/21/2018 Chronic pain of left knee 06/07/2017 Anxiety and depression 05/23/2017 B12 deficiency 05/23/2017 Chronic lumbar radiculopathy 05/23/2017 Diabetes mellitus with diabe tic cataract ([facility] V24, [facility] V28) 05/23/2017 Overview (05/13/2024): Bilateral GERD (gastroesophageal reflux disease) 7 Hypercholesteremia 05/23/2017 Overview (05/13/2024): Last Assessment & Plan: Triglycerides are elevated, which is a product of his diabetes. His endocrinology team has already recommended increased exercise which will help his lipid profile as well. For now, continue his statin at current dose. Can recommend direct LDL the next time that he has his blood profile checked Hypertension 05/23/2017 Overview (05/13/2024): Last Assessment & Plan: Patient's blood pressure is well controlled on her current regimen of beta- chevy, diuretic, and ARB. Continue the same OA (osteoarthritis) of knee 05/23/2017 Overview (05/13/2024): bilateral Systolic CHF ([facility] V24, [facility] V28) 05/23/20 17 Overview (05/13/2024): S/p single chamber AICD EF 10-20 % Last Assessment & Plan: The patient appears euvolemic on exam. He does have some shortness of breath on strenuous exertion such as climbing stairs or riding a stationary bike. However, he understands the importance of continued movement and physical activity. His thoracic impedance was unremarkable on his last device check. Continue in office monitoring as the patient does not have remote monitoring capabilities. Systolic CHF ([facility] V24, [facility] V28) 05/23/20 Overview (09/03/2024): -Most recently has been NYHA class II with stable symptoms and no recent heart failure hospitalizations -Cardiac catheterization in [place] in 2017 without significant coronary artery disease -LVEF initially 25% -Seen in the [facility] heart failure and transplant clinic, found to have VO2 max of 17.5 mL/kg/mm?? cardiopulmonary exercise test and was recommended to just have routine follow-up as he was not near the transplant threshold - PYP equivocal for amyloid - endomyocardial biopsy congo red negative, felt not to have amyloidosis - MGUS diagnosed - CardiacPET scan 2018 consistent with equivocal uptake and distribution is focal - [place].tvtronic MRI compatible single-chamber ICD -Most recent echocardiogram August 2024 showed mild concentric LVH, moderate to severe global hypokinesis with LVEF 30-35%, mild MR, mild TR, normal PASP -Did not tolerate Entresto due to lightheadedness Assessment & Plan (09/03/2024 6:13 PM EST): Stable. There has been no observed improvement in ejection fraction, suggesting that the current guideline-directed medical therapy (GDMT) may have reached its maximum potential. The primary limitations are hypotension and postural lightheadedness. However, it is noteworthy that hospitalization for heart failure has not been required recently. Clinically, euvolemic upon examination, and thoracic impedance monitoring consistently supports this assessment. Excessive pacing is unlikely a cause of persistently low EF as pacing frequency is low. Tachycardia myopathy does not appear to be a contributing factor. - Focus on managing clinical symptoms and morbidity related to HFrEF. Continue current metoprolol, losartan, Farxiga. Continue furosemide as needed only. AICD (automatic cardioverter/defibrillator) pres ent 05/23/2017 Overview (09/03/2024): Single chamber, placed in [place] ([facility] #[phone], #[phone]) -Most recent device check from June 2024 showed normal device function, patient has been in persistent AF since June 04, 2024; patient is appropriately rate controlled with V-sensed rhythm in the 50s to 80s, heart failure diagnostics suggest euvolemia, no ventricular arrhythmias or tachycardia therapies Last Assessment & Plan: Continue device clinic follow up Assessment & Plan (09/03/2024 6:13 PM EST): Continue device clinic follow-up. Encounters Date Type Department Care Team Description 10/15/2024 Telephone Nephrology - [id number] [place] [address] Haile Bey MD lab orders 09/24/2024 10:30 AM EST Ancillary Procedure [facility] [address] [facility] [address] [place] [address] Encounter for adjustment or management of cardiac device 09/03/2024 10:50 AM EST Office Visit [facility] [address] [facility] [address] [place] [address] Angelica Brody MD Chronic systolic congestive heart failure (CMS/HCC V24, CMS/HCC V28) (Primary Dx); Longstanding persistent atrial fibrillation (CMS/HCC V24, CMS/HCC V28); Orthostatic hypotension; AICD (automatic cardioverter/defibril lator) present from Last 3 Months Immunizations Name Administration Dates Next Due Influenza Quadravalent, MDCK , 0.5ml, preservative free (Flucelvax) 6mo and older 05/20/2020,06/15/2019 Influenza Quadravalent, MDCK , 0.5ml, with preservative (Flucelvax) 6mo and older 06/09/2018,05/23/2017 Influenza trivalent, 0.5mL ( Fluzone High-dose) 65yo and older 05/05/2021 Moderna SARS-CoV-2 COVID-19, mRNA, LNP-S, preservative free 03/25/2022 Pneumococcal conjugate 13 va lent (Prevnar 13, PCV13) 2mo and older 04/05/2021 Pneumococcal polysaccharide 23 valent (Pneumovax 23) 2yo and older 06/16/2016 Tdap Tetanus diptheria acell ular pertussis (Boostrix; Adacel) 7yo and older 06/16/2016 Zoster Live 06/16/2016 Zoster recombinant (Shingrix) 19yo and older Surgical History Surgery Date Site/Laterality Comments OTHER SURGICAL HISTORY PROCEDURE: AICD, SINGLE CHAMBER; COMMENT: January 2017 TONSILLECTOMY PROCEDURE: HISTORICAL TONSILLECTOMY; COMMENT: Age 18 TYMPANOSTOMY TUBE PLACEMENT PROCEDURE: HISTORICAL PE TUBES; COMMENT: Age 15 CARDIAC CATHETERIZATION 10/11/2016 PROCEDURE: HISTORICAL CARDIAC CATH Medical History Medical History Date Comments Diabetes mellitus with diabe tic cataract (CMS/HCC V24, CMS/HCC V28) 05/23/2017 DX:Diabetes mellitus with d iabetic cataract ([facility]); COMMENT: Bilateral Type 2 diabetes mellitus ( S/HCC V24, CMS/HCC V28) 05/23/2017 DX:Type 2 diabetes mellitus ([facility]) Hypercholesteremia 05/23/2017 DX:Hyperchole steremia Hypertension 05/23/2017 DX:Hypertension OA (osteoarthritis) of knee 05/23/2017 DX:O A (osteoarthritis) of knee; COMMENT: bilateral Mitral valve regurgitation 05/23/2017 DX:Mi tral valve regurgitation AICD (automatic cardioverter/defibrillator) present 05/23/2017 DX:AICD (automatic cardioverter/defibrillator) present; COMMENT: Single chamber, placed in [place] ([facility] #[phone], #[phone]) Systolic CHF (CMS/HCC V24, CMS/[facility] V28) 05/23/20 17 DX:Systolic CHF ([facility]); COMMENT: S/p single chamber AICD EF 10-20 % PAF (paroxysmal atrial fibri llation) (CMS/[facility] V24, CMS/HCC V28) 05/23/2017 DX:PAF (paroxysmal atrial fibrillation) ([facility]); COMMENT: On chronic coumadin Chronic lumbar radiculopathy 05/23/2017 DX: Chronic lumbar radiculopathy B12 deficiency 05/23/2017 DX:B12 deficienc y GERD (gastroesophageal reflux disease) 7 DX:GERD (gastroesophageal reflux disease) Anxiety and depression 05/23/2017 DX:Anxiet y and depression [place] (myocardial infarction) 06/01/2017 D X:[place] (myocardial infarction) Pulmonary hypertension (CMS/ HCC V24, CMS/HCC V28) 06/01/2017 DX:Pulmonary hypertension ([facility]); COMMENT: Severe, cardiac cath 10/11/2016 Family History Medical History Relation Name Comments CABG Brother at 57 Coronary artery disease Father Diabetes Father Alzheimer's disease Mother Relation Name Status Comments Brother Alive Father Mother Social History Tobacco Use Types Packs/Day Years Used Date Smoking Tobacco: Never Smokeless Tobacco: Never Alcohol Use Standard Drinks/Week Comments Yes 6 (1 standard drink = 0.6 oz pur e alcohol) Sex and Gender Information Value Date Recorded Sex Assigned at Not on file Legal Sex Male 5:29 AM EST Gender Identity Not on file Sexual Orientation Not on file Obstetrics History Last Filed Vital Signs Vital Sign Reading Time Taken Comments Blood Pressure 128/70 09/03/2024 11:03 AM EST Pulse 78 09/03/2024 11:03 AM EST Temperature - - Respiratory Rate - - Oxygen Saturation 99% 09/03/2024 11:03 AM EST Inhaled Oxygen Concentration - - Weight 85.5 kg (188 lb 6.4 oz) 09/03/2024 11:03 AM EST Height 185.4 cm (6' 1 ) 09/03/2024 11:03 AM EST Body Mass Index 24.86 09/03/2024 11:03 AM EST Plan of Treatment Upcoming Encounters Date Type Department Care Team (Late st Contact Info) Description 12/22/2024 11:00 AM EDT Ancillary Procedure [facility] [address] [facility] [address] [place] [address] 03/04/2025 10:40 AM EDT Office Visit [facility] Card[facility] [address] [facility] [address] [place] [address] Josh Li NP [address] [place] [address] 05/20/2025 4:00 PM EDT Office Visit Nephrology - [address] [address] Haile Bey MD [address] [facility] [address] [place] [id number] Health Maintenance Due Date Last Done Comments Diabetes: Annual Foot Exam 1965 Diabetes: Annual Retina Eye Exam 1965 RSV Immunization Adult Patients (1 - Risk 60-74 years 1-dose series) 2015 Falls Risk Assessment 07/15/2022 Medicare Annual Wellness Visit 07/15/2022 Social Influencers of Health Screening 07/15/2022 COVID-19 Vaccine ( season) 2024 03/25/2022, 06/07/2021, 11/05/2020, Additional history exists Depression Screening 01/29/2025 01/30/2024 Diabetes: Annual Urine Albumin-Creatinine Ratio (uACR) 01/31/2025 02/01/2024, 02/01/2024, 12/21/2022, Additional history exists Diabetes: Blood Sugar Control Test (HGBA1C) 02/23/2025 08/26/2024, 05/08/2024, 02/01/2024 Diabetes: Annual GFR (Glomerular Filtration Rate) 06/13/2025 06/13/2024, 02/01/2024 Hypertension/CHF/CAD Annual BMP Blood Test 06/13/2025 06/13/2024, 02/01/2024 DTaP,Tdap,and Td Vaccines (2 - Td or Tdap) 06/16/2026 06/16/2016 Cholesterol Screening (Lipid Panel) 06/13/2029 06/13/2024, 06/13/2024, 02/01/2024, Additional history exists Colorectal Cancer Screening: Colonoscopy 03/21/2033 03/21/2023 Hepatitis C Screening Completed 12/21/2022, 023 Zoster Vaccines Completed 10/30/2023, 12/04, 06/16/2016 Influenza Vaccine Completed 04/15/2024, , 06/09/2022, Additional history exists Pneumococcal Vaccine: 50+ Years Completed 06/03/2024, 04/05/2021, 06/16/2016 HIB Vaccines Aged Out No longer eligi ble based on patient's age to complete this topic HPV Vaccines Aged Out No longer eligi ble based on patient's age to complete this topic Hepatitis A Vaccines Aged Out No long er eligible based on patient's age to complete this topic Hepatitis B Vaccines Aged Out No long er eligible based on patient's age to complete this topic IPV Vaccines Aged Out No longer eligi ble based on patient's age to complete this topic MMR Vaccines Aged Out No longer eligi ble based on patient's age to complete this topic Meningococcal ACWY Vaccine Aged Out N o longer eligible based on patient's age to complete this topic Meningococcal B Vaccine Aged Out No l onger eligible based on patient's age to complete this topic RSV Immunization Patients Under 20 months Aged Out No longer eligible based on patient's age to complete this topic Varicella Vaccines Aged Out No longer eligible based on patient's age to complete this topic Medical Devices Implanted Type Area Brush Polisher Device Identifier Shelf Expiration Date Model / Serial / Lot Medt-Card Visia Af Mri Vr [id number]/ 9/2017 Implanted:04/2017 (Quantity not on file) Cardiac ICD Left: Chest [employer] - CARDIAC RHYTH-CRDM VISIA AF MRI VR [id number] / [id number] / Procedures Procedure Name Priority Date/Time Associated Diagnosis Comments CARDIAC DEVICE CHECK- IN CLINIC- MURJ Routine 09/24/2024 10:20 AM EST Encounter for adjustment or management of cardiac device URINE ALBUMIN CREATININE RATIO Routine 02/01/2024 ANNUAL BMP BLOOD TEST Routine 02/01/2024 HEMOGLOBIN A1C Routine 02/01/2024 LIPID PANEL Routine 02/01/2024 COLONOSCOPY Routine 03/21/2023 HEPATITIS C SCREENING Routine 12/21/2022 from Last 3 Months or Most Recently Relevant to Health Maintenance Results * CARDIAC DEVICE CHECK- IN CLINIC- MURJ (09/24/2024 10:20 AM EST) Date Time Interrogation Session [id number] CV DEVICE CHECK Implantable Pulse Generator Brush Polisher MDT CV DEVICE CHECK Implantable Pulse Generator Type ICD CV DEVICE CHECK Implantable Pulse Generator Model Visia AF MRI VR [id number] CV DEVICE CHECK Implantable Pulse Generator Serial Number [id number] CV DEVICE CHECK Battery Status Middle of Service CV DEVICE CHECK Tristan Statistic RV Percent Paced 0.10 CV DEVICE CHECK Atrial Tachy Statistic AT/AF Garner Percent 100.00 CV DEVICE CHECK Lead Channel Sensing Intrinsic Amplitude 6.100 CV DEVICE CHECK Lead Channel Setting Sensing Sensitivity 0.30 CV DEVICE CHECK Lead Channel Impedance Value 513 CV DEVICE CHECK Lead Channel Pacing Threshold Amplitude 0.750 CV DEVICE CHECK Lead Channel Pacing Threshold Pulse Width 0.4 CV DEVICE CHECK Lead Channel RV Pacing Threshold Date 2024-09-24 CV DEVICE CHECK Lead Channel Setting Pacing Amplitude 2.000 CV DEVICE CHECK Lead Channel Setting Pacing Pulse Width 0.4 CV DEVICE CHECK Tristan Setting Mode (NBG Code) VVI CV DEVICE CHECK Tristan Setting Lower Rate Limit 40 CV DEVICE CHECK RV HV Impedance 65 CV D EVICE CHECK Zone Setting Type Category AF CV DEVICE CHECK Zone Setting Status Monitor CV DEVICE CHECK Zone ID 1 CV DEVICE CHECK Zone Setting Type Category VF CV DEVICE CHECK Therapies ATP During Charging, 35J x 6 CV DEVICE CHECK Zone Setting Status On CV DEVICE CHECK Zone ID 3 CV DEVICE CHECK Zone Setting Type Category FVT CV DEVICE CHECK Therapies Burst(2), 35J x 5 CV DEVICE CHECK Zone Setting Status VIA_VF CV DEVICE CHECK Zone ID 4 CV DEVICE CHECK Zone Setting Type Category VT CV DEVICE CHECK Therapies All Rx Off CV DEVICE CHECK Zone Setting Status Off CV DEVICE CHECK Zone ID 5 CV DEVICE CHECK Date of Service 2024-09-24 CV DEVICE CHECK Anatomical Region Laterality Modality Device Interroga tion 09/24/2024 Impressions 09/24/2024 1:43 PM EST Normal In-Office: No Events * Normal Device Function * Alerts or events: 4 AF events noted since last check; longest on-going since 24- mainly controlled, pt asymptomatic * 1 NSVT event noted- EGM suggestive of AF with RVR (7 beats), pt asymptomatic * Battery: MOS, 3.0 years * Sensing, impedance and thresholds reviewed and tested * Presenting Rhythm: (AF) VS 70 - 100's * Heart Rate Histograms reviewed * Pacing and Detection Parameters were evaluated Heart Failure Diagnostic: Stable * Heart failure diagnostics assessed through the device * Status: Stable * No overt HF present Narrative Procedure Note Dani Dee MD - 09/25/2024 IMPRESSION: Normal In-Office: No Events * Normal Device Function * Alerts or events: 4 AF events noted since last check; longest on-goingsince 12.28.24- mainly controlled, pt asymptomatic * 1 NSVT event noted- EGM suggestive of AF with RVR (7 beats), ptasymptomatic * Battery: MOS, 3.0 years * Sensing, impedance and thresholds reviewed and tested * Presenting Rhythm: (AF) VS 70 - 100's * Heart Rate Histograms reviewed * Pacing and Detection Parameters were evaluated Heart Failure Diagnostic: Stable * Heart failure diagnostics assessed through the device * Status: Stable * No overt HF present Order Referral Cardiovascular CV IMPLANTABLE CAR DIAC DEVICE PROCEDURES Final Result * Urine Albumin Creatinine Ratio (02/01/2024) [facility] Urine Albumin Creatinine Ratio Abstracted Result [facility] HEALTH MAINTENANCE Final Result * Annual BMP Blood Test (02/01/2024) [facility] Annual BMP Blood Test Abstracted Result [facility] HEALTH MAINTENANCE Final Result * Hemoglobin A1c (02/01/2024) [facility] Hemoglobin A1C 0.0 % Comment:No interpretation, A bstracted Blood Venous blood specimen / Unknown Result [facility] LAB BLOOD ORDERABLES [place] Result * Lipid panel (02/01/2024) [facility] Triglycerides 0 mg/dL Comment:No interpretation, A bstracted Cholesterol 0 mg/dL Comment:No interpretation, A bstracted HDL 0 mg/dL Comment:No interpretation, A bstracted LDL Cholesterol 0 mg/dL Comment:No interpretation, A bstracted Blood Venous blood specimen / Unknown Result [facility] LAB BLOOD ORDERABLES [place] Result * Colonoscopy (03/21/2023) [facility] Colonoscopy No interpretation , Abstracted Anatomical Region Laterality Modality Other Result [facility] HEALTH MAINTENANCE Final Result * Hepatitis C Screening (12/21/2022) Hepatitis C Screening Abstracted us Historical Provider HEALTH MAINTENANCE Final Result from Last 3 Months or Most Recently Relevant to Health Maintenance Insurance [employer] MED[employer] Member Subscriber Plan / Payer (Ef fective 2020-Present) Name:Ayaan Le Relation to Subscriber:Self Name:Ayaan Le Payer ID:[id number] Group ID:[id number] Type:Not on file Address: [address] [place] [place] [address] Care Teams Police Manager Relationship Specialty Start Date End Date Carola Siddiqi PA [address] [place] [address] PCP - General 07/21/22
--- OUTSIDE RECORDS SUMMARY | 2024-12-02 09:03 | XMS_ITS ---
Author Organization [facility] Address [address] [place] [address] Care Team Providers Care Manager Business [employer] Name Role Phone Carola Siddiqi PA-C Primary Care Provider Aravind Swanson Unavailable [phone] REASON FOR VISIT At Risk Footcare, Toe Irritation Medications Medication SIG (Take, Route, Frequency, Duration) Notes Start Date End Date Status Trulicity 0.75 MG/0.5ML as directed Subcutaneous Active Vitamin D3 Active Crestor Not-Taking Warfarin Sodium Not- Taking Entresto 24-26 MG 1 tablet Orally Twic e a day for 30 day(s) Not-Taking Tadalafil Active Tamsulosin HCl Activ e Tippo 3 Active Rosuvastatin Calcium 40 MG 1 tablet Orally Once a day for 30 day(s) Active Extra Depth Orthopedic Shoes (1 Pair) with Customized Heat Molded Multidensity Innersoles (3 Pair) as directed Dx: NIDDM/Polyneuropathy (E11.42), Hammertoe Foot Deformity (M20.41,M20.42), Preulcerative Skin Lesion(s) (L85.1 06/12/2024 Active Metoprolol Tartrate 50 MG 1 tablet with food Orally Twice a day for 30 day(s) Active Glimepiride 4 MG 1 tablet Orally twic e a day for 30 days Active Losartan Potassium 25 MG 1 tablet Orally Once a day for 30 day(s) Active Finasteride Active Furosemide 20 MG 1 tablet Orally Once a day for 30 day(s) Active eliquis 5 mg Active Farxiga 5 MG 1 tablet Orally Once a day for 30 day(s) Active Fish Oil Not-Taking Ammonium Lactate 12 % 1 application Exte rnally Twice a day for 30 days Active Januvia 100 MG 1 tablet Orally Once a day for 30 day(s) Not-Taking Social History Tobacco Use: Social History Observation Description Date Details (start date - stop date) Never Smoker NA - NA Alcohol Screen Question Answer Notes Did you have a drink contain ing alcohol in the past year? Yes How often did you have a dri nk containing alcohol in the past year? Monthly or less (1 point) Points 1 Interpretation Negative Tobacco use other than smoking: Question Answer Notes Are you an other tobacco user? No Tobacco Control (Standard) Question Answer Notes Tobacco use: Nonsmoker Additional Findings: Tobacco non-user Current no nsmoker Vital Signs Height 6ft in 06/12/2024 Weight 189 lbs 06/12/2024 BMI 25.63 kg/m2 06/12/2024 Procedures Procedure Date Ordered Date Performed Result Body Sit e 68915-YCBGBML NAIL, 6 OR MORE 06/12/2024 N/A 94836-KWYZ SKIN LESIONS, OVER 4 06/12/2024 N/A Encounters Encounter Location Date Provider Diagnosis [facility] [place] [address] [place] [id number] 06/12/2024 Aravind Black Type 2 diabetes mellitus with diabetic polyneuropathy E11.42 ; Tinea unguium B35.1 ; Other hammer toe(s) (acquired), right foot M20.41 and Other hammer toe(s) (acquired), left foot M20.42 Assessments Encounter Date Diagnosis (ICD Code) Assessment Notes Treatment Notes Treatment Clinical Notes Section Notes 06/12/2024 Type 2 diabetes mellitus with diabetic polyneuropathy (ICD-10 - E11.42) 06/12/2024 Tinea unguium (ICD-10 - B35.1) 06/12/2024 Other hammer toe(s) (acquired), right foot (ICD-10 - M20.41) Patient Educated with: DIABETIC FOOT CARE INSTRUCTIONS. pdf (DIABETIC FOOT CARE INSTRUCTIONS. pdf) 06/12/2024 Other hammer toe(s) (acquired), left foot (ICD-10 - M20.42) Plan Of Treatment Medication Medication Name Sig Start Date Stop Date Notes Extra Depth Orthopedic Shoes (1 Pair) with Customized Heat Molded Multidensity Innersoles (3 Pair) as directed Dx: NIDDM/Polyneuropathy (E11.42), Hammertoe Foot Deformity (M20.41,M20.42), Preulcerative Skin Lesion(s) (L85.1 06/12/2024 Treatment Notes Assessment Notes Other hammer toe(s) (acquired), right fo ot Patient Educated with: DIABETIC FOOT CARE INSTRUCTIONS.pdf (DIABETIC FOOT CARE INSTRUCTIONS.pdf) Pending Test Test Name Order Date 72402-[id number] NAIL, 6 OR MORE 06/12/2024 06417-XWIF SKIN LESIONS, OVER 4 06/12/20 24 Next Appt Details Follow Up: 3 Months, Reason: Provider Name:Aravind Black , 12/08/2024 10:45:00 AM, [address] [facility], [address], [place], [address], Procedure Notes * Category Sub-Category Detail Notes Debride Nail 6-10 Nail debridement Performance o f this nail treatment by a nonprofessional would put this patients foot and overall health at risk. Therefore, debridement to affected nail(s) as described in exam was performed extensively to reduce/remove overall nail length, girth, thickness, subungual debris, and necrotic tissue, by manual and/or electrical means through the use of a nail nipper and/or dremel-type track grinder, to a more viable healthy nail plate or bed tissue 6-10. Silver nitrate used for any petechial bleeding as necessary. Definitive antifungal treatment options have been reviewed and discussed with the patient. The patient chooses, no pharmaceutical tx - 64495 Keratoma Treatment Parring or Cutting o f Benign Hyperkeratotic Lesion(s) (-57) More than 4 Lesions - The Benign hyperkeratotic lesions, as described in exam, were pared, and/or cut utilizing a sterile 15 blade, tissue nippers, and/or dremel - 67596 Progress Notes * Bree FUNESOB:1955 (69 yo M)Acc No.[id number]:06/12/2024 Progress Note Patient:?Ayaan FUNES Provider:?Aravind Black DPM :1955???Age:68 Y???Sex:Male Daniel e:06/12/2024 Address:[address], [place], [id number] Pcp:Carola Siddiqi PA-C Subjective: * Chief Complaints: * ???At Risk FootcareToe Irrit ation * HPI: ???At Risk footcare:?Pt States Last PCP Visit:?Date?01/23/2024 ???Toe pain:?Location:?B/L feet.?Duration:?several years.?Course:?worse.?Aggravated by:?shoes, any pressure.?Treatments:?change in shoes.? * ROS:?General/Constitutional:?Nausea?denies.?Vomiting?denies.?Hunger Thirst?denies.?Loss appetite?denies.?Chills?denies.?Fatigue?denies.?Fever?denies.?Night Sweats?denies.?Unexplained weight loss?denies.?Unexplained [...] ataract surgery 2023 * Hospitalization/Major Diagno stic Procedure:?No Hospitalization History. * Family History:?Mother: dece ased.?Father: , heart attack, diagnosed with Diabetic - NIDDM.?Siblings: unknown, heart attack, diagnosed with Other malignant neoplasm of unspecified site.? * Social History:?Tobacco Use:?Tobacco use other than smoking?Are you an other tobacco user??No ?Tobacco Control (Standard)?Tobacco use:?Nonsmoker ?Additional Findings: Tobacco non-user?Current nonsmoker ???Drugs/Alcohol:?Drugs?Have you used drugs other than those for medical reasons in the past 12 months??No ?Alcohol Screen?Did you have a drink containing alcohol in the past year??Yes ?How often did you have a drink containing alcohol in the past year??Monthly or less (1 point) ?Points?1 ?Interpretation?Negative ???Miscellaneous:?Caffeine: yes, frequency:, 1-2 cups per day. ?Children: yes, 4. ?Exercise: no. ?Marital status: . ?Occupation: Retired. * Medications:?Takingeliquis 5 mg Tablet Farxiga 5 MG Tablet 1 tablet Orally Once a day Finasteride Furosemide 20 MG Tablet 1 tablet Orally Once a day Glimepiride 4 MG Tablet 1 tablet Orally twice a day Losartan Potassium 25 MG Tablet 1 tablet Orally Once a day Metoprolol Tartrate 50 MG Tablet 1 tablet with food Orally Twice a day Tippo 3 Rosuvastatin Calcium 40 MG Tablet 1 tablet Orally Once a day Tadalafil Tamsulosin HCl Trulicity 0.75 MG/0.5ML Solution Pen-injector as directed Subcutaneous Vitamin D3 Ammonium Lactate 12 % Cream 1 application Externally Twice a day Taking eliquis 5 mg Tablet Taking Farxiga [...] with food Orally Twice a day Taking Tippo 3 Taking Rosuvastatin Calcium 40 MG Tablet 1 tablet Orally Once a day Taking Tadalafil Taking Tamsulosin HCl Taking Trulicity 0.75 MG/0.5ML Solution Pen-injector as directed Subcutaneous Taking Vitamin D3 Taking Ammonium Lactate 12 % Cream 1 application Externally Twice a day Not-Taking/PRNWarfarin Sodium Entresto 24-26 MG Tablet 1 tablet Orally Twice a day Crestor Januvia 100 MG Tablet 1 tablet Orally Once a day Fish Oil Medication List reviewed and reconciled with the patientNot-Taking/PRN Warfarin Sodium Not- Taking/PRN Entresto 24-26 MG Tablet 1 tablet Orally Twice a day Not-Taking/PRN Crestor Not-Taking/PRN Januvia 100 MG Tablet 1 tablet Orally Once a day Not-Taking/PRN Fish Oil Medication List reviewed and reconciled with the patient * Allergies:?yes[Allergies Viktor ified] Objective: * Vitals:?Ht:6ft, Wt:189, BMI: 25.63, Shoe size:11, BS:114, Ht-cm: 182.88 cm, Wt- k.73 kg. * ???Past Orders: ???Lab:HEMOGLOBIN A1C (GLYCO HEMOGLOBIN) (Order Date - 03/06/2024) (Collection Date & Time - 03/06/2024 02:23 PM) ? Value Reference Range ?HEMOGLOBIN A1C % (HH) 8.0 * Examination: ???Ophthalmology Referral: ?DIABETES EYE EXAM?Procedure Performed:?Yes ?Date of Exam Performed?06/06/2023 ?Diabetic Retinopathy Screening:?Yes ?Retinal Screening Performed:?Yes ?Findings of Diabetic Eye Exam:?no retinopathy?Neurological: ?SENSORY:?Neurological exam demonstrates, reduced light touch sensation, reduced sharp/dull pin prick discrimination , B/L, 5.07 monofilament test performed at plantar aspects of 5 varied sites per foot shows sensation, reduced , B/L.?Nails: ?NAILS are:?Elongated, overgrown, dystrophic, lytic, greater than 3mm thick, discolored and friable with crumbly malodorous subungual debris, 1-5 B/L.?Dermatologic: ?SKIN FINDINGS:?Skin exam reveals Keratotic lesion(s) located at, Medial plantar, IPJ, TA, Medial plantar, IPJ, T5, SUB MTH (s), 1, B/L , SUB MTH (s), 5, B/L , Heel(s), B/L.?Orthopedic: ?MUSCLE STRENGTH:?5/5 all groups in a symmetrical fashion , B/L.?GAIT ABNORMALITY:? appropulsive, cane-assisted.?FOOT MORPHOLOGY:? Pes Cavus structure, No Charcot collapse/destruction noted at MTJ.?DIGITAL DEFORMITIES:?Digital contracture, PIPJ, 2-5 B/L, incompl-reducible to push-up test, no over, nor underlapping,?there is?evidence of shoe producing skin irritation.?FOOTWEAR:?worn, OT were inspected and noted to be severely worn , in poor condition not giving proper support at the present time , shoe gear properties exacerbate patients foot/toe deformity.?Vascular: ?DP PULSES (B):? 2/4, B/L.?PT PULSES (B):? 2/4, B/L.?CAPILLARY FILL TIME:? 3 secs. per digit, B/L.?TROPHIC CONDITION-TEXTURE/ELASTICITY/TURGOR/HAIR GROWTH (B):?normal, B/L.?TEMPERTURE GRADIENT (C):?normal, warm to cool, proximal to distal, B/L, B/L.?PIGMENTATION:?normal, B/L.?EDEMA (C):?absent, B/L.?General Examination: ?GENERAL APPEARANCE:?Reveals a pleasant, alert, well nourished, well developed, well hydrated individual, who demonstrates proper attention to hygiene/body habitus, and is in no acute distress , Pt serves as own historian for office visit today.?ORIENTED:?person, place, and time.?FOOT EXAM:?Lower Extremity Neurological Exam performed:?Yes ?Visual exam of foot performed:?Yes ?Date?06/12/2024 ?Footwear Evaluation?Footwear Evaluation performed:?Yes??? Assessment: * Assessment: 1.?Type 2 diabetes mellitus with diabetic polyneuropathy - E11.42 (Primary)???2.?Tinea unguium - B35.1???3.?Other hammer toe(s) (acquired), right foot - M20.41???Specify :Chronic problem, Worse (4),Rx Management (4)???4.?Other hammer toe(s) (acquired), left foot - M20.42???Specify :Chronic problem, Worse (4),Rx Management (4)??? Plan: * Treatment: 2.?Other hammer toe(s) (acqu ired), right foot? Start Extra Depth Orthopedic Shoes (1 Pair) with Customized Heat Molded Multidensity Innersoles (3 Pair), as directed, Dx: NIDDM/Polyneuropathy (E11.42), Hammertoe Foot Deformity (M20.41,M20.42), Preulcerative Skin Lesion(s) (L85.1, 1, Refills 0.?? Notes: Patient Educated with: DIABETIC FOOT CARE INSTRUCTIONS.pdf (DIABETIC FOOT CARE INSTRUCTIONS.pdf)?? * Procedures:?Debride Nail 6-10:?Nail debridement?Performance of this nail treatment by a nonprofessional would put this patients foot and overall health at risk. Therefore, debridement to affected nail(s) as described in exam was performed extensively to reduce/remove overall nail length, girth, thickness, subungual debris, and necrotic tissue, by manual and/or electrical means through the use of a nail nipper and/or dremel-type track grinder, to a more viable healthy nail plate or bed tissue 6-10. Silver nitrate used for any petechial bleeding as necessary. Definitive antifungal treatment options have been reviewed and discussed with the patient. The patient chooses, no pharmaceutical tx - 50584.?Keratoma Treatment:?Parring or Cutting of Benign Hyperkeratotic Lesion(s)?(-57) More than 4 Lesions - The Benign hyperkeratotic lesions, as described in exam, were pared, and/or cut utilizing a sterile 15 blade, tissue nippers, and/or dremel - 09770.? * Procedure Codes:?23861 DEBRI DE NAIL, 6 OR MORE, Modifiers: XS 86592 TRIM SKIN LESIONS, OVER 4, Modifiers: XS * Preventive Medicine:? ??Counseling:?Discussion:?-14: Office or other outpatient visit for the evaluation and management of an established patient, which required a medically appropriate history and/or examination and MODERATE level of DECISION MAKING for: 1 OR MORE CHRONIC PROBLEM(S) THATS WORSENING, 2 STABLE CHRONIC PROBLEMS, A NEWLY DIAGNOSED PROBLEM WITH UNCERTAIN PROGNOSIS, AN ACUTE COMPLICATED INJURY WITH MULTIPLE TREATMENT OPTIONS, OR AN ACUTE PROBLEM WITH ACCOMPANYING SYSTEMIC SYMPTOMS, THAT POSE(S) A MODERATE RISK OF MORBIDITY. THIS CONDITION MAY ALSO INCLUDE RX DRUG MANAGEMENT, OR A DECISON FOR MINOR SURGERY. The visit on the day of the [...] have encouraged the patient to call the office.?Digital Surgery:?Digital surgery was discussed with the patient, We elected to try conservative treatment at the present time, due to the patients medical history and increased asssociated post-operative risks.?Digital Treatment:?HT- I explained to the patient the possible etiologies of Hammertoes, including genetics/foot type/shoegear/activity level/exercise routine and the risks/benefits of all the different treatment options for their pain including: No treatment at all, Rest, Ice, New/supportive/wider/deeper Shoegear, Digital Padding/Strapping/Taping/Bracing/Gel protective sleeves, Foot/Ankle AFO Bracing, Stretching exercises, Deep Tissue Massage, Arch support/shoe inserts with splay metatarsal padding, and Custom orthoses. I insisted that any digital devices be removed daily and not worn overnight for safety. The patient is to carefully examine the toes daily for any skin irritation while using any splinting or padding device. The advantages and disadvantages of each option were discussed and the patients questions re: shoegear, padding, custom vs prefabricated inserts, activity level, and consistency in home treatment regimens for optimal success were answered to their verbally confirmed satisfaction.?Shoe Gear Counseling:?SHOE Rx - The patient was counseled in great detail on their muscoloskeletal foot and toe deformities which coincided with the dermatological presentations visualized on exam. We discussed how their deformities put the integrity of their feet at risk for potential pedal complications which makes the accomidative diabetic shoes and cutomizable inserts medically necessary. We discussed the different shoe and insert treatment types and options, as well as the important advantages for adhering to regularly wearing these accomidative devices daily. The patient was made aware of the fact that a failure to abide by these recommedations may be deleterious to their foot health as they are able to prevent many pedal complications such as skin irritation, skin ulceration, infection, and even loss of toe/foot/leg/or life. Time was also spent with the patient dispensing and discussing proper diabetic footcare techniques including daily skin moisturization, daily foot inspection for any interruption in skin integrity including open lesions, or sign of infection such as redness/malodor/drainage/swelling. Also discussed and recommended were procedures regarding daily shoe inspection for the presence of internal foreign bodies as well as any visualized irregular shoe or insert wear. Patient questions re: shoes, inserts, and self foot inspections were answered to their satisfaction as the patient verbally confirmed a full understanding of the above information. A Rx for Extra Depth Orthopedic Shoes with 3 pair of custom heat-molded inserts was dispensed.? ??Screening/Special Tests:?Fall Risk?Screening:?No falls in the past year ?FALLS: Screening for Future Fall Risk?Have you had any falls with injury in the past year??No * Follow Up:?3 Months * Images: * Sign off status: Completed true * Provider:?Aravind Black DPM Date:?2023 Generated for Leesa pittman/Nancy/Barbara on:?12/02/2024 09:03 AM EDT History and Physical Notes * HPI (History of Present Illness) Category Sub-Category Detail Notes Category Not es Toe pain Location: B/L feet Duration: several years Course: worse Aggravated by: shoes, any pressure Treatments: change in shoes At Risk footcare Pt States Last [...] , SUB MTH (s), 5, B/L , Heel(s), B/L Orthopedic GAIT ABNORMALITY: appropulsive, cane-assi sted FOOT MORPHOLOGY: Pes Cavus structure, No Charcot collapse/destruction noted at MTJ FOOTWEAR EVALUATION: worn, OT were inspe cted and noted to be severely worn , in poor condition not giving proper support at the present time , shoe gear properties exacerbate patients foot/toe deformity DIGITAL DEFORMITIES: Digital contracture , PIPJ, 2-5 B/L, incompl-reducible to push-up test, no over, nor underlapping, there is evidence of shoe producing skin irritation MUSCLE STRENGTH: 5/5 all groups in a symmetrical fashion , B/L General Examination GENERAL APPEARANCE: Reveals a pleasant, alert, well nourished, well developed, well hydrated individual, who demonstrates proper attention to hygiene/body habitus, and is in no acute distress , Pt serves as own historian for office visit today FOOT EXAM: Lower Extremity Neurological Exa m performed:: Yes Visual exam of foot performed:: Yes Date: 06/12/2024 ORIENTED: person, place, and t sylvester Footwear Evaluation Footwear Evaluation performe d:: Yes Ophthalmology Referral DIABETES EYE EXAM Procedure Perform ed:: Yes ?Date of Exam Performed: 06/06/2023 Diabetic Retinopathy Screening:: Yes Retinal Screening Performed:: Yes Findings of Diabetic Eye Exam:: no retin opathy Vascular DP PULSES (B): 2/4, B/L PT PULSES (B): 2/4, B/L CAPILLARY FILL TIME: 3 secs. per digit, B/L TEMPERTURE GRADIENT (C): normal, warm to cool, proximal to distal, B/L, B/L TROPHIC CONDITION-TEXTURE/ELASTICITY/TURGOR/HAIR GROWTH (B): normal, B/L EDEMA (C): absent, B/L PIGMENTATION: normal, B/L Nails NAILS are: Elongated, overg rown, dystrophic, lytic, greater than 3mm thick, discolored and friable with crumbly malodorous subungual debris, 1-5 B/L
--- OUTSIDE RECORDS SUMMARY | 2024-12-02 09:03 | XMS_ITS ---
Author Organization [facility] Address [address] [place] [address] Care Team Providers Care Nursing Assistant Name Role Phone Carola Siddiqi PA-C Primary Care Provider Aravind Swanson Unavailable [phone] Allergies No Known Allergies REASON FOR VISIT At Risk Footcare, Ingrown Nail(s), Skin problem(s) Medications Medication SIG (Take, Route, Frequency, Duration) Notes Start Date End Date Status Entresto 24-26 MG 1 tablet Orally Twic e a day for 30 day(s) Not-Taking Warfarin Sodium Not- Taking Januvia 100 MG 1 tablet Orally Once a day for 30 day(s) Not-Taking Crestor Not-Taking Fish Oil Active Tadalafil Active Tamsulosin HCl Activ e Vitamin D3 Active Trulicity 0.75 MG/0.5ML as directed Subcutaneous Active Ammonium Lactate 12 % 1 application Exte rnally Twice a day for 30 days Active Losartan Potassium 25 MG 1 tablet Orally Once a day for 30 day(s) Active Glimepiride 4 MG 1 tablet Orally twic e a day for 30 days Active Elba 3 Active Metoprolol Tartrate 50 MG 1 tablet with food Orally Twice a day for 30 day(s) Active Rosuvastatin Calcium 40 MG 1 tablet Orally Once a day for 30 day(s) Active Farxiga 5 MG 1 tablet Orally Once a day for 30 day(s) Active eliquis 5 mg Active Furosemide 20 MG 1 tablet Orally Once a day for 30 day(s) Active Finasteride Active Social History Tobacco Use: Social History Observation Description Date Details (start date - stop date) Former Smoker NA - NA Tobacco Use/Smoking Question Answer Notes Are you a: former smoker Additional Findings: Tobacco Non-User Current no n-smoker Alcohol Screen Question Answer Notes Did you have a drink contain ing alcohol in the past year? Yes How often did you have a dri nk containing alcohol in the past year? Monthly or less (1 point) Points 1 Interpretation Negative Tobacco use other than smoking: Question Answer Notes Are you an other tobacco user? No Vital Signs Height 6ft in 03/06/2024 Weight 189 lbs 03/06/2024 BMI 25.63 kg/m2 03/06/2024 Procedures Procedure Date Ordered Date Performed Result Body Sit e 74451-ZNCQQSE NAIL, 6 OR MORE 03/06/2024 N/A 34303-Cqjvcvth Plate 03/06/2024 N/A 15622-Yqmpwpns Plate Each Additional 03/06/2024 N/A 32388-CUYO SKIN LESIONS, OVER 4 03/06/2024 N/A Encounters Encounter Location Date Provider Diagnosis [facility] [address] [address] 03/06/2024 Aravind Black Type 2 diabetes mellitus with diabetic polyneuropathy E11.42 ; Tinea unguium B35.1 ; Ingrown nail L60.0 and Xerosis of skin L85.3 Assessments Encounter Date Diagnosis (ICD Code) Assessment Notes Treatment Notes Treatment Clinical Notes Section Notes 03/06/2024 Type 2 diabetes mellitus with diabetic polyneuropathy (ICD-10 - E11.42) 03/06/2024 Tinea unguium (ICD-10 - B35.1) 03/06/2024 Ingrown nail (ICD-10 - L60.0) 03/06/2024 Xerosis of skin (ICD-10 - L85.3) Plan Of Treatment Pending Test Test Name Order Date 24817-LFOWEYV NAIL, 6 OR MORE 03/06/2024 77301-Sudqtjev Plate 03/06/2024 02177-Cjgxvmxu Plate Each Additional 08/2023 32434-LSYP SKIN LESIONS, OVER 4 03/06/20 24 Next Appt Details Follow Up: 3 Months, Reason: Provider Name:Aravind Black , 12/08/2024 10:45:00 AM, [address] [place] [address], [place], [address], Procedure Notes * Category Sub-Category Detail Notes Nail Avulsion Procedure A fine sterile e levator was placed between the eponychium, nail fold, and nail plate to separate the structures. A sterile nail splitter, and/or sterile 316 blade, was then used to longitudinally section the nail along its entire length through the eponychium to the area under the nail fold. The offending portion of nail was from the nail bed with a rolling action and then removed with a hemostat. No underlying bone was identified. There was minimal bleeding as hemostasis was achieved through the temporary use of either a digital tourniquet or the aforementioned local with epinephrine. A bacitracin sterile dressing was applied. Local wound aftercare instructions were discussed and dispensed. The patient was informed of both conservative and future surgical procedures to prevent recurrence. Tylenol or Motrin was recommended for pain or discomfort (00009/32) , DIABETES: Pt was advised as to the risk of delayed or nonhealing due to diabetes. Pt is to call the office with any questions, concerns, or complications , DIABETES: Matricectomy deferred at this time due to diabetes risk Anesthesia was deferred - NEURO IVET: patient has medically documented neuropathic condition affecting sensation Location Lateral nail border , TA, Medial nail border , T5 Debride Nail 6-10 Nail debridement Nail debridem ent performed extensively to reduce/remove overall nail length, girth, thickness, subungual debris, and necrotic tissue, by manual and electrical means through the use of a nail nipper and/or dremel, to more viable healthy nail plate or bed tissue 6-10. Silver nitrate used for any petechial bleeding as necessary. Patient chooses, no pharmaceutical tx (34653) Keratoma Treatment Parring or Cutting o f Benign Hyperkeratotic Lesion(s) 23979 ( >4 Lesions) - The Benign hyperkeratotic lesions, as described above were pared, and/or cut utilizing a sterile #15 blade, tissue nippers, and/or dremel Progress Notes * Bree FUNESOB:1955 (68 yo M)Acc No.[id number]:03/06/2024 Progress Note Patient:?Ayaan Funes Provider:?Aravind Black DPM :1955???Age:68 Y???Sex:Male Daniel e:03/06/2024 Address:[address] [place], [place] [address] , [place] Pcp:Carola Siddiqi PA-C Subjective: * Chief Complaints: * ???At Risk FootcareIngrown N ail(s)Skin problem(s) * HPI: ???At Risk footcare:?Pt States Last PCP Visit:?Date?01/23/2024 ???Skin problems:?Treatments:?medication ( AM Lactin ) , states adherence to recommended treatment application.? * ROS:?General/Constitutional:?Nausea?denies.?Vomiting?denies.?Hunger Thirst?denies.?Loss appetite?denies.?Chills?denies.?Fatigue?denies.?Fever?denies.?Night Sweats?denies.?Unexplained weight loss?denies.?Unexplained weight gain?denies.?HEENTM:?Dentures?denies.?Dizziness?denies.?Glasses/contacts?admits.?Retinopathy?de nies.?Blurred/double vision?denies.?TMJ?denies.?Discharge/drainage?denies.?Implants?denies.?Sore throat?denies.?Dental implants?denies.?Hard of hearing ?denies.?Difficulty chewing/swallowing/speaking?denies.?Nose bleeds?denies.?Sore mouth?denies.?Respiratory:?On Oxygen?denies.?Pneumonia/pleurisy?denies.?Bronchitis?denies.?Emphysema?denies.?C oughing?denies.?Cough blood?denies.?Shortness of breath?denies.?Wheezing?denies.?Cardiovascular:?Pacemaker?denies.?MVP?denies.?WPW?denies.?CHF?denies.?Heart attack?denies.?Septal defect?denies.?Rapid beat?denies.?Chest pain ?denies.?Atrial Fib.?denies.?Murmur/Palpitations?denies.?Gastrointestinal:?Hemorrhoids?denies.?Stomach/Abdominal pain?denies.?Dark blood stool?denies.?Irritable bowel ?denies.?Constipation?denies.?Diarrhea?denies.?Hematology:?Swelling?admits.?Clots?denies.?Varicose Veins?denies.?Bruising?admits, on anticoagulants.?Bleeding problem?admits, on anticoagulants.?Genitourinary:?Blood urine?denies.?Frequent/Painfu/urination/bladder control?denies.?Kidney stones?denies.?Infection (UTI)?denies.?Nephropathy?denies.?sex trans dis (STD)?denies.?Prostate?denies.?Musculoskeletal:?Hammertoes?admits.?Bunions?denies.?Back Pain?denies.?Muscle Cramps/ Resting?denies.?Muscle cramps / walking?denies.?Generalized aches and pains?denies.?Weakness?denies.?Integ.:?Guardado?denies.?Scars?denies.?Corns/calluses?admits.?Ingrown nails?admits.?Painful nails?denies.?Open Sores?denies.?Rashes?denies.?Neurologic:?Difficulty sleeping?denies.?Brain disorder?denies.?Numbness?denies.?Balance trouble?admits.?Confusion?denies.?Fainting/blackouts?denies.?Tingling?denies.?Tr emors?denies.? * Medical History:? * Surgical History:?eye surger y (cataract) ack * Hospitalization/Major Diagno stic Procedure:?No Hospitalization History. * Family History:?Mother: dece ased.?Father: , heart attack, diagnosed with Diabetic - NIDDM.?Siblings: unknown, heart attack, diagnosed with Other malignant neoplasm of unspecified site.? * Social History:?Tobacco Use:?Tobacco Use/Smoking?Are you a:?former smoker ?Additional Findings: Tobacco Non-User?Current non-smoker ?Tobacco use other than smoking?Are you an other tobacco user??No ???Drugs/Alcohol:?Drugs?Have you used drugs other than those for medical reasons in the past 12 months??No ?Alcohol Screen?Did you have a drink containing alcohol in the past year??Yes ?How often did you have a drink containing alcohol in the past year??Monthly or less (1 point) ?Points?1 ?Interpretation?Negative ???Miscellaneous:?Caffeine: yes, frequency:, 1-2 cups per day. ?Children: yes, 4. ?no Exercise. ?Marital status: . ?Occupation: Retired. * Medications:?Takingeliquis 5 mg Tablet Farxiga 5 MG Tablet 1 tablet Orally Once a dayFinasteride Furosemide 20 MG Tablet 1 tablet Orally Once a dayGlimepiride 4 MG Tablet 1 tablet Orally twice a dayLosartan Potassium 25 MG Tablet 1 tablet Orally Once a dayMetoprolol Tartrate 50 MG Tablet 1 tablet with food Orally Twice a dayOmega 3 Rosuvastatin Calcium 40 MG Tablet 1 tablet Orally Once a dayTadalafil Tamsulosin HCl Trulicity 0.75 MG/0.5ML Solution Pen-injector as directed Subcutaneous Vitamin D3 Ammonium Lactate 12 % Cream 1 application Externally Twice a dayFish Oil Taking eliquis 5 mg Tablet Taking Farxiga 5 MG Tablet 1 tablet Orally Once a dayTaking Finasteride Taking Furosemide 20 MG Tablet 1 tablet Orally Once a dayTaking Glimepiride 4 MG Tablet 1 tablet Orally twice a dayTaking Losartan Potassium 25 MG Tablet 1 tablet Orally Once a dayTaking Metoprolol Tartrate 50 MG Tablet 1 tablet with food Orally Twice a dayTaking Elba 3 Taking Rosuvastatin Calcium 40 MG Tablet 1 tablet Orally Once a dayTaking Tadalafil Taking Tamsulosin HCl Taking Trulicity 0.75 MG/0.5ML Solution Pen-injector as directed Subcutaneous Taking Vitamin D3 Taking Ammonium Lactate 12 % Cream 1 application Externally Twice a dayTaking Fish Oil Not-Taking/PRNWarfarin Sodium Entresto 24-26 MG Tablet 1 tablet Orally Twice a dayCrestor Januvia 100 MG Tablet 1 tablet Orally Once a dayMedication List reviewed and reconciled with the patientNot-Taking/PRN Warfarin Sodium Not-Taking/PRN Entresto 24-26 MG Tablet 1 tablet Orally Twice a dayNot-Taking/PRN Crestor Not-Taking/PRN Januvia 100 MG Tablet 1 tablet Orally Once a dayMedication List reviewed and reconciled with the patient * Allergies:?N.K.D.A.yes[Aller gies Verified] Objective: * Vitals:?Ht: 6ft, Wt:189, BMI :25.63, Shoe size: 11, BS: 115, Ht-cm: 182.88 cm, Wt-k.73 kg. * ???Past Orders: ???Lab:HEMOGLOBIN A1C (GLYCO HEMOGLOBIN) (Order Date - 03/06/2024) (Collection Date - 03/06/2024) ? Value Reference Range ?HEMOGLOBIN A1C % (HH) 8.0 * Examination: ???Neurological: ?SENSORY:?Neurological exam demonstrates, reduced light touch sensation, [...] MTH (s), 5, B/L , Heel(s), B/L ,Skin shows approximately 70-80% LESS sign(s) of, dryness, scaling, in a stocking fashion, no fissure(s) present, B/L,?.?Ingrown Nail: ?INSPECTION:?Reveals nail incurvation, dull pain on palpation due to neuropathy, groove hypertrophy , Lateral nail border , TA , Medial nail border , T5.? Assessment: * Assessment: 1.?Type 2 diabetes mellitus with diabetic polyneuropathy - E11.42 (Primary)?2.?Tinea unguium - B35.1?3.?Ingrown nail - L60.0, Lateral nail border , TA, Medial nail border , T5?4.?Xerosis of skin - L85.3, Acute problem, Stable (1=3),Response to treatment - Improvement? Plan: * Treatment: 2.?Ingrown nail?Procedure: 98499-Oooaefkq Plate ?Procedure: 25495-Fqiihbvo Plate Each Additional * Procedures:?Debride Nail 6-10:?Nail debridement?Nail debridement performed extensively to reduce/remove overall nail length, girth, thickness, subungual debris, and necrotic tissue, by manual and electrical means through the use of a nail nipper and/or dremel, to more viable healthy nail plate or bed tissue 6-10. Silver nitrate used for any petechial bleeding as necessary. Patient chooses, no pharmaceutical tx (16307) .?Keratoma Treatment:?Parring or Cutting of Benign Hyperkeratotic Lesion(s)?05735 ( >4 Lesions) - The Benign hyperkeratotic lesions, as described above were pared, and/or cut utilizing a sterile #15 blade, tissue nippers, and/or dremel.?Nail Avulsion:?Location?Lateral nail border?,?TA,?Medial nail border?,?T5.?Anesthesia?was deferred - NEUROPATHY: patient has medically documented neuropathic condition affecting sensation.?Procedure?A fine sterile elevator was placed between the eponychium, nail fold, and nail plate to separate the structures. A sterile nail splitter, and/or sterile 316 blade, was then used to longitudinally section the nail along its entire length through the eponychium to the area under the nail fold. The offending portion of nail was from the nail bed with a rolling action and then removed with a hemostat. No underlying bone was identified. There was minimal bleeding as hemostasis was achieved through the temporary use of either a digital tourniquet or the aforementioned local with epinephrine. A bacitracin sterile dressing was applied. Local wound aftercare instructions were discussed and dispensed. The patient was informed of both conservative and future surgical procedures to prevent recurrence. Tylenol or Motrin was recommended for pain or discomfort (75129/32) , DIABETES: Pt was advised as to the risk of delayed or nonhealing due to diabetes. Pt is to call the office with any questions, concerns, or complications , DIABETES: Matricectomy deferred at this time due to diabetes risk.? * Procedure Codes:?32407 DEBRI DE NAIL, 6 OR MORE, Modifiers: XS 54491 Avulsion Plate, Modifiers: XS , [id number] TRIM SKIN LESIONS, OVER 4, Modifiers: XS 66994 Avulsion Plate Each Additional, Modifiers: XS , T5 * Preventive Medicine:? ??Counseling:?Discussion:?-12: Office or other outpatient visit for the evaluation and management of an established patient, which required a medically appropriate history and/or examination and STRAIGHTFORWARD level of MEDICAL DECISION MAKING, 1 SELF-LIMITED OR MINOR PROBLEM, MINIMAL- NO AMOUNT/COMPLEXITY OF DATA TO BE REVIEWED/ANALYZED, AND MINIMAL RISK OF COMPLICATION/MORBIDITY. The visit on the day of the [...] have encouraged the patient to call the office.?Xerosis:?Given recent successful results to treatment, The patient is to cont the rx cream as directed.? * Follow Up:?3 Months * Images: * Sign off status: Completed true * Provider:?Aravind Black DPM Date:?2023 Generated for Leesa pittman/Nancy/Barbara on:?12/02/2024 09:02 AM EDT History and Physical Notes * HPI (History of Present Illness) Category Sub-Category Detail Notes Category Not es Skin problems Treatments: medication ( AM Lactin ) , states adherence to recommended treatment application At Risk footcare Pt States Last PCP Visit: Date: 01/23/2024 Examination Category Sub-Category Detail Notes Category Not es Ingrown Nail INSPECTION: Reveals nail inc urvation, dull pain on palpation due to neuropathy, groove hypertrophy , Lateral nail border , TA , Medial nail border , T5 Neurological SENSORY: Neurological exa m demonstrates, reduced [...] MTH (s), 5, B/L , Heel(s), B/L , Skin shows approximately 70-80% LESS sign(s) of, dryness, scaling, in a stocking fashion, no fissure(s) present, B/L, Nails NAILS are: Elongated, overg rown, dystrophic, lytic, greater than 3mm thick, discolored and friable with crumbly malodorous subungual debris, 1-5 B/L
--- OUTSIDE RECORDS SUMMARY | 2024-12-02 09:03 | XMS_ITS | Encounter Summary ---
Author Organization [facility] Address [address] [place] [address] Care Team Providers Care Core Layer Machine Operator Name Role Phone Carola Siddiqi PA-C Primary Care Provider [phone] Encounter Details Date Type Department Care Team (Late st Contact Info) Description 02/04/2024 Interim Notes [facility] [address] [place] [address] [place] [address] [place] [address] Social History Tobacco Use Types Packs/Day Years [...] Orientation Straight 08/18/2021 12 :05 PM PST COVID-19 Exposure Response Date Recorded In the last 10 days, have jay u been in contact with someone who was confirmed or suspected to have Coronavirus/COVID-19? No / Unsure 01/30/2024 1:23 PM EDT documented as of this encounter Plan of Treatment Upcoming Encounters Date Type Department Care Team (Late st Contact Info) Description 12/17/2024 10:20 AM EDT Office Visit [facility] [address] [place] [address] [place] D[place] [address] [place] [id number] 01/13/2025 1:40 PM EDT Office Visit [address] [address] Morgan Martinez, PharmD [address] [place] [address] documented as of this encounter Visit Diagnoses Not on filedocumented in this encounter Additional Health Concerns Assessment Noted Time PHQ-9 Depression Total Score: 0 01/30/20 24 1:54 PM PDT documented as of this encounter Care Teams Core Layer Machine Operator Relationship Specialty Start Date End Date Carola Siddiqi PA-C [address] [place] [id number] PCP - General FAMILY MEDICINEAMIRA 08/18/21 documented as of this encounter
== END 2024-12-02 09:22 | disposition home or self-care (01) ==
PROVIDERS: PCP Internal Medicine; Visit Provider Internal Medicine
DX: E11.65 Type 2 diabetes mellitus with hyperglycemia (principal); I50.22 Chronic systolic (congestive) heart failure; I48.19 Other persistent atrial fibrillation; I10 Essential (primary) hypertension; E78.5 Hyperlipidemia, unspecified; N40.0 Benign prostatic hyperplasia without lower urinary tract symptoms

== ENCOUNTER → 2024-12-02 08:37 | Outpatient (BNVA) | payer OTHER, SELFPAY | PROVIDERS: Visit Provider Internal Medicine | DX: E11.65 Type 2 diabetes mellitus with hyperglycemia (principal); I48.91 Unspecified atrial fibrillation; I11.0 Hypertensive heart disease with heart failure; I50.22 Chronic systolic (congestive) heart failure; E78.5 Hyperlipidemia, unspecified; N40.0 Benign prostatic hyperplasia without lower urinary tract symptoms; I48.19 Other persistent atrial fibrillation; J32.9 Chronic sinusitis, unspecified; M51.369 Other intervertebral disc degeneration, lumbar region without mention of lumbar back pain or lower extremity pain; Z79.01 Long term (current) use of anticoagulants | CPT/HCPCS: 96127; 99202 ==

== ENCOUNTER 2025-04-14 09:18 | Outpatient (REF) | payer OTHER, SELFPAY ==
[2025-04-14 09:37] LABS: MANUAL DIFF FLAG NO
[2025-04-14 09:54] LABS: Hematocrit 47.1 % (42.0-52.0); Hemoglobin 15.7 g/dl (14.0-18.0); Imm Gran Abs Auto 0.01 X10*3/uL (0.00-0.03); Imm Gran Pct Auto 0.2 % (0.0-0.4); Lymphocytes Absolute Auto 1.3 X10*3/uL (1.2-4.9); Mean Corpuscular HGB Conc 33.3 g/dl (31.0-36.0); Mean Corpuscular Hemoglobin 32.4 pg (27.0-33.0); Mean Corpuscular Volume 97.3 fL (80.0-98.0); NRBC Abs Auto 0.000 X10*3/uL (0.0-0.012); NRBC Pct Auto 0.0 /100WBC (0.0-0.2); Platelet Count 175 X10*3/uL (160-400); Red Blood Count 4.84 X10*6/uL (4.60-5.80); White Blood Count 4.7 X10*3/uL (4.8-10.8)
[2025-04-14 10:40] LABS: Microalbum/Creatinine Ratio Ur 52.5 ug/mg cr (<30)
[2025-04-14 10:42] LABS: Alanine Aminotransferase 47 U/L (0-40); Albumin Level 4.5 g/dL (3.5-5.0); Alkaline Phosphatase 53 U/L (39-117); Anion Gap 15 (12-20); Aspartate Amino Transferase 39 U/L (5-37); Blood Urea Nitrogen 16 mg/dL (9-16); Calcium 9.3 mg/dL (8.4-10.2); Carbon Dioxide 28 mmol/L (22-29); Chloride 105 mmol/L (96-108); Cholesterol 205 mg/dL (<200); Estimated Glomerular Filt Rate 54; HDL Cholesterol 54 mg/dL (>40); Iron 141 mcg/dL (45-160); Percent Iron Saturation 47 % (15-50); Potassium 4.2 mmol/L (3.3-5.1); Sodium 144 mmol/L (135-145); Total Iron Binding Capacity 302 mcg/dL (228-428); Total Protein 7.4 g/dL (6.5-8.0); Triglycerides 253 mg/dL (<150); Unsaturated Iron Binding 161 ug/dL
--- OUTSIDE RECORDS SUMMARY | 2025-04-14 10:46 | XMS_ITS | Clinical Summary ---
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 3 Active finasteride (PROSCAR) 5 mg tablet Take 5 mg by mouth daily. Active cholecalciferol (VITAMIN D-3) 25 mcg (1,000 unit) tablet Take 1 tablet by mouth daily. Active FREESTYLE LANCETS [facility] Use to check blood sugar once a [...] two tablets in the afternoon Active omega 8-wni-yip-fish oil (Fish OiL) 1,000 (120-180) mg capsule Take by mouth 1 (one) time each day. Active rosuvastatin (CRESTOR) 40 mg tablet Take 1 tablet (40 mg total) by mouth 1 (one) time each day. 90 each 5 03/04/20 Active metoprolol succinate (TOPROL-XL) 50 mg 24 hr tablet Take 2 tablets (100 mg total) by mouth 2 (two) times a day. Do not crush or chew. 360 each 5 03/04/20 Active losartan (COZAAR) 25 mg tablet Take 1 tablet (25 mg total) by mouth 1 (one) time each day. 90 each 5 03/04/20 Active dapagliflozin propanediol (Farxiga) 10 mg tablet Take 1 tablet (10 mg total) by mouth 1 (one) time each day. 90 each 5 03/04/20 Active apixaban (Eliquis) 5 mg tablet Take 1 tablet (5 mg total) by mouth 2 (two) times a day. 180 each 5 03/04/20 Active Hospital, Clinic, or Other Facility Administered Medication Ordered Dose Route Frequency Start Date End Date Status TC-99M tetrofosmin P radio-isotope injection 9.5 millicurie 9.5 millicurie IV Once in imaging 03/19/2025 03/19/2025 Ended TC-99M tetrofosmin P radio-isotope injection 31.2 millicurie 31.2 millicurie IV Once in imaging 03/19/2025 03/19/2025 Ende d regadenoson (LEXISCAN) injection 0.4 mg 0.4 mg IV Once in imaging 03/19/2025 03/19/2025 End ed Active Problems Problem Noted Date Diagnosed Date Costochondritis 05/05/2024 Orthostatic hypotension 04/10/2024 Assessment & Plan (04/07/2025 1:31 PM EDT): Denies any recent dizziness lightheadedness or falls. Assessment & Plan (03/04/2025 11:35 AM EDT): Patient had 1 fall since his last visit this was due to him trying to go up stairs with his cane, denies any head strike. Reports improvement with changing positions slowly. Assessment & Plan (09/03/2024 6:13 PM EST): [...] no surgery Last Assessment & Plan: Mr. Funes is now approximately 2 weeks status post [...] onset Alzheimer's roshan ntia without behavioral disturbance ([facility] V24, [facility] V28) 08/18/2021 Longstanding persistent atri al fibrillation ([facility] V24, [facility] V28) 06/21/2021 Overview (03/04/2025): Rate control strategy Anticoagulated with apixaban Assessment & Plan (03/04/2025 11:35 AM EDT): Rate controlled with 100 mg of Toprol p.o. twice daily, utilizing Eliquis for CVA prophylaxis. Denies any abnormal bleeding. Should be anticoagulated due to elevated CHADS2 Vascor. Assessment & Plan (09/03/2024 6:13 PM EST): [...] Heart failure with reduced e jection fraction [place] [place] [facility] [place]) 06/15/2021 Microalbuminuria 04/05/2021 Type II diabetes mellitus wi th renal manifestations ([facility] [place], [facility] V28) 04/05/2021 Diabetic polyneuropathy asso ciated with type 2 diabetes mellitus ([facility] [place], [facility] V28) 12/24/2019 Overview (05/13/2024): Used to see podiatry (Dr. Hoyt) Benign prostatic hyperplasia with urinary hesita ncy 12/22/2019 Degenerative joint disease (DJD) of hip 10/02/19 Overview (05/13/2024): See LS xray 2017 - mod-severe DJD hips, incompletely visualized. Internal hemorrhoids 06/20/2019 CKD (chronic kidney disease) stage 3, GFR 30-59 ml/min ([facility] [place], [facility] V28) 11/21/2018 Chronic pain of left knee 06/07/2017 Anxiety and depression 05/23/2017 B12 deficiency 05/23/2017 Chronic lumbar radiculopathy 05/23/2017 Diabetes mellitus with diabe tic cataract ([facility] [place], [facility] V28) 05/23/2017 Overview (05/13/2024): Bilateral GERD (gastroesophageal [...] that he has his blood profile checked Assessment & Plan (04/07/2025 1:34 PM EDT): I have asked the patient to update his lipid panel as well as BMP. Would like his LDL under 100 closer to 70. Assessment & Plan (03/04/2025 11:37 AM EDT): Would update a lipid panel. Would like patient's LDL to be under 100 closer to 70. Hypertension 05/23/2017 Overview (05/13/2024): Last Assessment & Plan: Patient's blood pressure is well controlled on her current regimen of beta- chevy, diuretic, and ARB. Continue the same Assessment & Plan (04/07/2025 1:34 PM EDT): Well-controlled today. Please continue on current medication regiment. Assessment & Plan (03/04/2025 11:36 AM EDT): Well-controlled. Continue current medication regimen of beta-chevy, diuretic, ARB, SGLT2 inhibitor. OA (osteoarthritis) of knee 05/23/2017 Overview (05/13/2024): bilateral Systolic CHF (CMS/HCC V24, CMS/HCC V28) 05/23/20 17 Overview (05/13/2024): S/p single [...] patient does not have remote monitoring capabilities. Assessment & Plan (03/04/2025 11:37 AM EDT): Patient is euvolemic on exam. Doing well limiting his salt, checking his weights daily. Of note not on Entresto due to history of lightheadedness. Patient has no new or worsening symptoms. Please continue on current medication regimen this includes Farxiga 10 mg p.o. daily, Toprol 100 mg p.o. twice daily, and losartan 25 mg p.o. daily. I am going to order a nuclear stress test. Patient has implantable device, balance issues will need to utilize Lexiscan. This is due to unchanged dyspnea on exertion and palpitations. Also has several risk factors and family members that have had CABG. Systolic CHF (CMS/HCC V24, CMS/HCC V28) 05/23/20 17 Overview (09/03/2024): -Most recently has been NYHA class II with stable symptoms and no recent heart failure hospitalizations -Cardiac catheterization in [place] in 2017 without significant coronary artery disease -LVEF initially 25% -Seen in the [facility] heart failure and transplant clinic, found to have VO2 max of 17.5 mL/kg/mm cardiopulmonary exercise test and was recommended to just have routine follow- up as he was not near the transplant threshold - PYP equivocal for amyloid - endomyocardial biopsy congo red negative, felt not to have amyloidosis - MGUS diagnosed - CardiacPET scan 2018 consistent with equivocal uptake and distribution is focal - Medtronic MRI compatible single-chamber ICD -Most recent echocardiogram August 2024 showed mild concentric LVH, moderate to severe global hypokinesis with LVEF 30-35%, mild MR, mild TR, normal PASP -Did not tolerate Entresto due to lightheadedness Assessment & Plan (04/07/2025 1:31 PM EDT): Appears euvolemic on exam. Should continue to limit his sodium consumption. Should continue to check his weight daily. Stay on the metoprolol succinate 100 mg p.o. twice daily, losartan 25 mg p.o. daily, Farxiga 10 mg p.o. daily. Assessment & Plan (03/04/2025 11:34 AM EDT): Patient is euvolemic on exam. Doing well limiting his salt, checking his weights daily. Of note not on Entresto due to history of lightheadedness. Patient has no new or worsening symptoms. Please continue on current medication regimen this includes Farxiga 10 mg p.o. daily, Toprol 100 mg p.o. twice daily, and losartan 25 mg p.o. daily. Assessment & Plan (09/03/2024 6:13 PM EST): [...] 05/23/2017 Overview (09/03/2024): Single chamber, placed in [facility] ([facility] #[phone], #[phone]) -Most recent device check from June 2024 showed normal device function, patient has been in persistent AF since June 04, 2024; patient is appropriately rate controlled with V-sensed rhythm in the 50s to 80s, heart failure diagnostics suggest euvolemia, no ventricular arrhythmias or tachycardia therapies Last Assessment & Plan: Continue device clinic follow up Assessment & Plan (04/07/2025 1:32 PM EDT): Please continue with device checks. Assessment & Plan (03/04/2025 11:35 AM EDT): Please continue with device monitoring checkups. Assessment & Plan (09/03/2024 6:13 PM EST): Continue device clinic follow-up. Encounters Date Type Department Care Team Description 04/07/2025 1:10 PM EDT Office Visit [facility] [address] [place] [address] Josh Li NP FAGAN (dyspnea on exertion) (Primary Dx); Chronic systolic congestive heart failure (CMS/HCC V24, CMS/HCC V28); Orthostatic hypotension; AICD (automatic cardioverter/defibril lator) present; Hypertension, unspecified type; Hypercholesteremia 04/02/2025 1:00 PM EDT Ancillary Procedure [facility] [address] [place] [id number] Encounter for adjustment or management of cardiac device 03/19/2025 12:00 PM EDT Ancillary Procedure [facility] [address] [place] [id number] FAGAN (dyspnea on exertion) 03/04/2025 10:40 AM EDT Office Visit [facility] [address] [place] [phone] Josh Li NP Atrial fibrillation, unspecified type (CMS/HCC V24, CMS/HCC V28) (Primary Dx); Hypercholesteremia; Chronic systolic congestive heart failure (CMS/HCC V24, CMS/HCC V28); FAGAN (dyspnea on exertion); AICD (automatic cardioverter/defibril lator) present; Orthostatic hypotension; Longstanding persistent atrial fibrillation (CMS/HCC V24, CMS/HCC V28); Hypertension, unspecified type from Last 3 Months Immunizations Name Administration [...] Comments Diabetes mellitus with diabe tic cataract ([facility] V24, [facility] V28) 05/23/2017 DX:Diabetes mellitus with d iabetic cataract ([facility]); COMMENT: Bilateral Type 2 diabetes mellitus ( S/[facility] V24, [facility] V28) 05/23/2017 DX:Type 2 diabetes mellitus ([facility]) Hypercholesteremia 05/23/2017 DX:Hyperchole steremia Hypertension 05/23/2017 DX:Hypertension OA (osteoarthritis) of knee 05/23/2017 DX:O A (osteoarthritis) of knee; COMMENT: bilateral Mitral valve regurgitation 05/23/2017 DX:Mi tral valve regurgitation AICD (automatic cardioverter/defibrillator) present 05/23/2017 DX:AICD (automatic cardioverter/defibrillator) present; COMMENT: Single chamber, placed in [facility] ([facility] #[phone], #[phone]) Systolic CHF ([facility] V24, [facility] V28) 05/23/20 17 DX:Systolic CHF ([facility]); COMMENT: S/p single chamber AICD EF 10-20 % PAF (paroxysmal atrial fibri llation) ([facility] V24, [facility] V28) 05/23/2017 DX:PAF (paroxysmal atrial fibrillation) ([facility]); COMMENT: On chronic coumadin Chronic lumbar radiculopathy 05/23/2017 DX: Chronic lumbar radiculopathy B12 deficiency 05/23/2017 DX:B12 deficienc y GERD (gastroesophageal reflux disease) 7 DX:GERD (gastroesophageal reflux disease) Anxiety and depression 05/23/2017 DX:Anxiet y and depression Old NE (myocardial infarction) 06/01/2017 D X:Old NE (myocardial infarction) Pulmonary hypertension ([facility] V24, [facility] V28) 06/01/2017 DX:Pulmonary hypertension ([facility]); COMMENT: [...] Sign Reading Time Taken Comments Blood Pressure 120/64 04/07/2025 1:02 PM EDT Pulse 87 04/07/2025 1:02 PM EDT Temperature - - Respiratory Rate - - Oxygen Saturation 97% 04/07/2025 1:02 PM EDT Inhaled Oxygen Concentration - - Weight 83.4 kg (183 lb 12.8 oz) 04/07/2025 1:02 PM EDT Height 185.4 cm (6' 1 ) 04/07/2025 1:02 PM EDT Body Mass Index 24.25 04/07/2025 1:02 PM EDT Plan of Treatment Upcoming Encounters Date Type Department Care Team (Late st Contact Info) Description 05/20/2025 4:00 PM EDT [place] [facility] [place] [address] [place] [address] Haile Bey MD [address] [place] [address] 07/08/2025 1:00 PM EST Ancillary Procedure [facility] [address] [facility] [address] [place] [address] Health Maintenance Due Date Last Done Comments Diabetes: Annual Foot Exam 1965 Diabetes: Annual Retina Eye Exam 1965 RSV Immunization Adult Patients (1 - Risk 60-74 years 1-dose series) 2015 Falls Risk Assessment 07/15/2022 Medicare Annual Wellness Visit 07/15/2022 Social Influencers of Health Screening 07/15/2022 Depression Screening 08/06/2024 Diabetes: Annual Urine Albumin-Creatinine Ratio (uACR) 01/31/2025 02/01/2024, 02/01/2024, 12/21/2022, Additional history exists COVID-19 Vaccine ( season) 2025 03/25/2022, 06/07/2021, 11/05/2020, Additional history exists Influenza Vaccine (#1) 2025 , 04/15/2024, 05/23/2023, Additional history exists Diabetes: Blood Sugar Control Test (HGBA1C) 05/27/2025 11/25/2024, 08/26/2024, 05/08/2024, Additional history exists Diabetes: Annual GFR (Glomerular Filtration Rate) 06/13/2025 06/13/2024, 02/01/2024 Hypertension/CHF/CAD Annual BMP Blood Test 06/13/2025 06/13/2024, 02/01/2024 DTaP,Tdap,and Td Vaccines (2 - Td or Tdap) 06/16/2026 06/16/2016 Cholesterol Screening (Lipid Panel) 06/13/2029 06/13/2024, 06/13/2024, 02/01/2024, Additional history exists Colorectal Cancer Screening: Colonoscopy 03/21/2033 03/21/2023 Hepatitis C Screening Completed 12/21/2022, 023 Zoster Vaccines Completed 10/30/2023, 12/04, 06/16/2016 Pneumococcal Vaccine: 50+ Years Completed 06/03/2024, 04/05/2021, [...] this topic Medical Devices Implanted Type Area Blade Filer Device Identifier Shelf Expiration Date Model / Serial / Lot Medt-Card Visia Af Mri Vr [id number] 9/2017 Implanted:04/2017 (Quantity not on file) Cardiac ICD Left: Chest [employer] - CARDIAC RHYTH-CRDM VISIA AF MRI VR [id number] / [id number] / Procedures Procedure Name Priority Date/Time Associated Diagnosis Comments CARDIAC DEVICE CHECK- IN CLINIC- MURJ Routine 04/02/2025 1:35 PM EDT Encounter for adjustment or management of cardiac device NM LEXISCAN STRESS TEST W/ MYOCARDIAL PERFUSION Routine 03/19/2025 2:34 PM EDT FAGAN (dyspnea on exertion) ECG 12-LEAD Routine 03/04/2025 11:31 AM EDT Atrial fibrillation, unspecified type (CMS/HCC V24, CMS/HCC V28) URINE ALBUMIN CREATININE RATIO Routine 02/01/2024 ANNUAL BMP BLOOD TEST Routine 02/01/2024 HEMOGLOBIN A1C Routine 02/01/2024 LIPID PANEL Routine 02/01/2024 COLONOSCOPY Routine 03/21/2023 HEPATITIS C SCREENING Routine 12/21/2022 from Last 3 Months or Most Recently Relevant to Health Maintenance Results * CARDIAC DEVICE CHECK- IN CLINIC- MURJ (04/02/2025 1:35 PM EDT) Date Time Interrogation Session [id number] CV DEVICE CHECK Implantable Pulse Generator Blade Filer MDT CV DEVICE CHECK Implantable Pulse Generator Type ICD CV DEVICE CHECK Implantable Pulse Generator Model Visia AF MRI VR [id number] CV DEVICE CHECK Implantable Pulse Generator Serial Number [id number] CV DEVICE CHECK Battery Status Middle of Service CV DEVICE CHECK Tristan Statistic RV Percent Paced 0.10 CV DEVICE CHECK Atrial Tachy Statistic AT/AF [place] Percent 100.00 CV DEVICE CHECK Lead Channel Sensing Intrinsic Amplitude 7.300 CV DEVICE CHECK Lead Channel Setting Sensing Sensitivity 0.30 CV DEVICE CHECK Lead Channel Impedance Value 418 CV DEVICE CHECK Lead Channel Pacing Threshold Amplitude 0.750 CV DEVICE CHECK Lead Channel Pacing Threshold Pulse Width 0.4 CV DEVICE CHECK Lead Channel RV Pacing Threshold Date 2025-04-02 CV DEVICE CHECK Lead Channel Setting Pacing Amplitude 2.000 CV DEVICE CHECK Lead Channel Setting Pacing Pulse Width 0.4 CV DEVICE CHECK Tristan Setting Mode (NBG Code) VVI CV DEVICE CHECK Tristan Setting Lower Rate Limit 40 CV DEVICE CHECK RV HV Impedance 62 CV D EVICE CHECK Zone Setting Type [...] 5 CV DEVICE CHECK Date of Service 2025 CV DEVICE CHECK Anatomical Region Laterality Modality Device Interroga tion 04/02/2025 Impressions 04/13/2025 9:47 AM EDT Normal In-Office: With Events * Normal Device Function * Events or Alerts: 3 new VY-NS alerts, EGMs suggestive of AF w/ RVR, brief episodes, overall well rate controlled. * Battery: MOS, 3.1 years * Sensing, impedance and thresholds reviewed and tested * Presenting Rhythm: VS 60s-70s irregular, single lead device. Patient is on OAC. * Heart Rate Histograms reviewed * Pacing and Detection Parameters were evaluated Narrative Procedure Note Dani Dee MD - 04/13/2025 IMPRESSION: Normal In-Office: With Events * Normal Device Function * Events or Alerts: 3 new VY-NS alerts, EGMs suggestive of AF w/ RVR,brief episodes, overall well rate controlled. * Battery: MOS, 3.1 years * Sensing, impedance and thresholds reviewed and tested * Presenting Rhythm: VS 60s-70s irregular, single lead device. Patient sofía OAC. * Heart Rate Histograms reviewed * Pacing and Detection Parameters were evaluated us Order Referral Cardiovascular CV IMPLANTABLE CAR DIAC DEVICE PROCEDURES Final Result * NM LEXISCAN STRESS TEST W/ MYOCARDIAL PERFUSION (03/19/2025 2:34 PM EDT) Exercise/inject ion duration (min) 0 CV PACS STRESS Exercise/inject ion duration (sec) 39 CV PACS STRESS Peak SBP 116 mmHg CV PACS STRESS Peak DBP 62 mmHg CV PACS STRESS Peak HR 93 bpm CV PACS STRESS Baseline HR 80 bpm CV PACS STRESS Baseline SBP 144 mmHg CV PACS STRESS Baseline DBP 81 mmHg CV PACS STRESS Estimated workload 1.0 METS CV PACS STRESS Percent HR 62 % CV PACS STRESS Rate Pressure Product 10,788.0 mmHg*bpm CV PACS STRESS Target HR 128 bpm CV PACS STRESS O2 sat rest 97 % CV PACS STRESS Max HR Percent 61 % CV PA CS STRESS ST Depression (mm) 0 mm CV PACS STRESS TID 1.09 CV PACS STRESS Nuc Stress EF 43 % CV PAC S STRESS Nuc Rest EF 32 % CV PACS STRESS BSA 2.05 m2 CV PACS STRESS Anatomical Region Laterality Modality Nuclear Medicine 03/19/2025 1:07 PM EDT 03/19/2025 1:33 PM EDT Impressions 03/20/2025 7:44 AM EDT Abnormal Regadenoson stress test with nuclear imaging. No chest pain or EKG changes consistent with ischemia. Nuclear imaging revealed a small mild fixed perfusion defect of the apex consistent with small infarct or prominent apical thinning No significant ischemia observed There is a normal TID ratio. Gated SPECT imaging was performed and revealed a dilated LV, reduced LVEF of 32 % with global hypokinesis Narrative 03/20/2025 7:44 AM EDT Stress Findings A pharmacological stress test was performed using regadenoson, 0.4 mg IV over 10-15 seconds, followed by radiopharmacological injection 10 seconds post infusion. Total stress time was 0 min and 39 sec. The patient reached the end of the protocol. No low level exercise was used during pharmacological stress test. Blood pressure demonstrated a normal response. Heart rate demonstrated a normal response. The patient reported dyspnea during the stress test which resolved in early recovery. ECG 69-year-old male with shortness of breath with exertion; rule out ischemia. He has a history of permanent atrial fibrillation and HFrEF/nonischemic cardiomyopathy status post AICD placement with episodes of NSVT noted. Cardiac risk factors include hyperlipidemia, diabetes, and hypertension. A manager of tax was used for today's visit. Baseline ECG shows atrial fibrillation. There were no arrhythmias during stress. There is no ST segment changes during stress. There were no arrhythmias during recovery. Nuclear Study Quality Study technique: MPI, SPECT, multi, rest and stress, 1 day and gated. Overall image quality is good. CT attenuation correction was utilized. No radiopharmaceutical dose was extravasated. The time from injection to rest imaging is 35 mins. The time from injection to stress imaging is 40 mins. Stress Function Comments Stress ejection fraction is 43%. Rest Function Comments Resting ejection fraction was 32%. us Josh Li NP CV STRESS PROCEDURES Final Resul t * ECG 12 lead (03/04/2025 11:31 AM EDT) Ventricular Rate ECG 79 BPM GEMUSE Atrial Rate 97 BPM GEMUSE QRS Duration 96 ms GEMUSE Q-T Interval 392 ms GEMUSE QTc 449 ms GEMUSE R [place] -38 degrees GEMUSE T [place] -43 degrees GEMUSE ECG Interpretation Atrial fibrillation Left axis deviation Nonspecific T wave abnormality No previous ECGs available Confirmed by NICK FELDMAN ([id number]) on 03/23/2025 11:24:03 AM GEMUSE 03/04/2025 10:4 6 AM EDT 03/23/2025 11:24 AM EDT Result [facility] Josh Li PATIENT SAFETY TECH ECG ORDERABLES Edited Result - Final GEMUSE * Urine Albumin Creatinine Ratio (02/01/2024) [facility] Urine Albumin Creatinine Ratio Abstracted Result [facility] Provider HEALTH MAINTENANCE Final Result * Annual BMP Blood Test (02/01/2024) [facility] Annual BMP Blood Test Abstracted Result [facility] Provider HEALTH MAINTENANCE Final Result * Hemoglobin A1c (02/01/2024) [facility] Hemoglobin A1C 0.0 % Comment:No interpretation, A bstracted Blood Venous blood specimen / Unknown Result [facility] Provider LAB BLOOD ORDERABLES [place] Result * Lipid panel (02/01/2024) [facility] Triglycerides 0 mg/dL Comment:No interpretation, A bstracted Cholesterol 0 mg/dL Comment:No interpretation, A bstracted HDL 0 mg/dL Comment:No interpretation, A bstracted LDL Cholesterol 0 mg/dL Comment:No interpretation, A bstracted Blood Venous blood specimen / Unknown Result [facility] Provider LAB BLOOD ORDERABLES [place] Result * Colonoscopy (03/21/2023) [facility] Colonoscopy No interpretation , Abstracted Anatomical Region Laterality Modality Other Result [facility] Provider HEALTH MAINTENANCE Final Result * Hepatitis C Screening (12/21/2022) [facility] Hepatitis C Screening Abstracted Result [facility] Provider HEALTH MAINTENANCE Final Result from Last 3 Months or Most Recently Relevant to Health Maintenance Insurance [employer] Member Subscriber Plan / Payer (Ef fective 2020-Present) Name:AYAAN FUNES Relation to Subscriber:Self Name:Ayaan Funes Payer ID:[id number] Group ID:[id number] Type:Not on file Address: [facility] [address] [address] Care Teams Fruit Picker Machine Operator Relationship Specialty Start Date End Date Carola Siddiqi PA [address] [place] [address] PCP - General 07/21/22
--- OUTSIDE RECORDS SUMMARY | 2025-04-14 10:46 | XMS_ITS | Encounter Summary ---
Author Organization [facility] Address [address] [place] [address] Care Team Providers Care Taker Off Drying Kiln Name Role Phone Carola Siddiqi PA-C Primary Care Provider [phone] Encounter Details Date Type Department Care Team (Late st Contact Info) Description 02/04/2024 Interim Notes [facility] [address] [place] [address] Julieta Pino [place] [address] [place] [address] Social History Tobacco Use Types Packs/Day Years Used Date Smoking Tobacco: Never Passive Smoke Exposure: Never Smokeless Tobacco: Never Alcohol Use Standard Drinks/Week Comments Yes 1 (1 standard drink = 0.6 oz pur e alcohol) ocassional Social Connections Answer Date Recorded How often do you feel lonely or isolated from th ose around you? 1 01/30/2024 Financial Resource Strain Answer Date R ecorded Hard to pay for: Food 1 01/30/2024 Stress Answer Date Recorded Do you feel these kinds of stress these days? 1 01/30/2024 Physical Activity Answer Date Recorded Physical Activity 0 09/22/2020 Food Insecurity Answer Date Recorded Hard to pay for: Food 1 01/30/2024 Transportation Needs Answer Date Record ed Hard to pay for: Transportation 01/30/2024 Housing Stability Answer Date Recorded Hard to pay for: Rent/Mortgage payment 1 01/30/2024 Safety and Environment Answer Date Jayme rded How often does anyone, inclu ding family and friends, physically hurt you? 1 01/30/2024 Utilities Answer Date Recorded Hard to pay for: Utilities 1 01/29 Employment Answer Date Recorded Stress 0 10/24/2021 Sex and Gender Information Value Date Recorded Sex Assigned at Male 06/01/2021 6:43 AM PDT Legal Sex Male 11:22 AM PDT Gender Identity Male 06/01/2021 6:42 AM PDT Sexual Orientation Straight 08/18/2021 12 :05 PM PST COVID-19 Exposure Response Date Recorded In the last 10 days, have yo u been in contact with someone who was confirmed or suspected to have Coronavirus/COVID-19? No / Unsure 01/30/2024 1:23 PM EDT documented as of this encounter Plan of Treatment Upcoming Encounters Date Type Department Care Team (Late st Contact Info) Description 06/12/2025 2:00 PM EST Office Visit [facility] [address] [place] [phone] Manuel Harmon, [facility] [address] [place] [address] documented as of this encounter Visit Diagnoses Not on filedocumented in this encounter Additional Health Concerns Assessment Noted Time PHQ-9 Depression Total Score: 0 01/30/20 24 1:54 PM PDT documented as of this encounter Care Teams Taker Off Drying Kiln Relationship Specialty Start Date End Date Carola Siddiqi PA-C [address] [place] [address] PCP - General [facility]ILY [facility]ICINE[facility]IRA 08/18/21 02/11/25 documented as of this encounter
--- OUTSIDE RECORDS SUMMARY | 2025-04-14 10:46 | XMS_ITS | Clinical Summary ---
Author Organization [facility] Address [address] [place] [address] Care Team Providers Care Time Study Statistician Name Role Phone Unavailable Primary Care Provider Unavailabl e Source Comments PLEASE NOTE, if this patient [...] % cream 021 Active blood-glucose meter monitoring kitIndications:Ty pe 2 diabetes mellitus with diabetic cataract, without long-term current use of insulin ([facility]) Use to check BG 1x/d DX E11.42 Freestyle Lite 1 Each 022 Active ELIQUIS 5 mg tabIndications:H/ O right heart catheterization,A ICD (automatic cardioverter/defi brillator) present Take 1 Tablet by mouth 2 (two) times daily 180 Tablet 1 022 Active finasteride (PROSCAR) 5 mg tablet Take 5 mg by mouth 04/13/2022 FINASTERIDE 5 MG TABLET [place], [place] [phone] 90.00 Each 2 90 2 Outside Sources Authorized by: FRITZ CARLIN Active metoprolol succinate (TOPROL-XL) 50 mg 24 hr tablet Take 75 mg by mouth 04/13/2022 METOPROLOL SUCC ER 50 MG TAB [place], [place] [phone] 270.00 Each 1 90 2 Outside Sources Authorized by: MIKE MARSHALL 022 Active tamsulosin (FLOMAX) 0.4 mg 24 hr capsule Take 0.4 mg by mouth Active metoprolol tartrate (LOPRESSOR) 50 mg tablet twice a day Active MISCELLANEOUS MEDICAL SUPPLY MISCIndications:S tress incontinence of urine by miscellaneous route once daily Male incontinence pads. DX: urinary incontinence SOBIA: 99 100 Each 3 024 Active tadalafiL (CIALIS) 5 mg tablet Take 1 Tablet by mouth as needed Active blood pressure kit med and lrgIndications:Pr imary hypertension Medium blood pressure kit SOBIA: 99 DX: htn 1 Kit 024 Active MISCELLANEOUS MEDICAL SUPPLY MISCIndications:G ait instability by miscellaneous route once daily Raised toilet seat with handles DX: urinary incontinence, gait instability SOBIA: 99 1 Each 024 Active losartan (COZAAR) 25 mg tabletIndications :Primary hypertension [place] 1 tableta por vIa oral erick vez al [place] 90 Tablet 1 024 Active lancets (FREESTYLE LANCETS) 28 gaugeIndications: Type 2 diabetes mellitus with diabetic cataract, without long-term current use of insulin ([facility]) Uselo para comprobar la DARION GLUCOSA DIARIA 100 Each 11 025 Active blood sugar diagnostic (FREESTYLE LITE STRIPS) stripsIndications :Type 2 diabetes mellitus with diabetic cataract, without long-term current use of insulin ([facility]) Uselo para comprobar la DARION GLUCOSA DIARIA 100 Each 11 025 Active MISCELLANEOUS MEDICAL SUPPLY MISCIndications:D iabetic polyneuropathy associated with type 2 diabetes mellitus ([facility]),Type 2 diabetes mellitus with diabetic cataract, without long-term current use of insulin ([facility]) by miscellaneous route daily 1 pair of diabetic shoes with inserts DX: DM, polyneuropathy secondary to DM SOBIA: 99 1 Each 025 Active amoxicillin (AMOXIL) 500 mg capsuleIndication s:Encounter for dental examination Take 1 Capsule by mouth 1 (one) time as needed for other reason (premedication) for up to 1 dose Take 4 capsules 30 min to 1 hr before the dental dania 16 Capsule 025 Active glimepiride (AMARYL) 2 mg tabletIndications :Type 2 diabetes mellitus with hyperglycemia, without long-term current use of insulin ([facility]) TAKE ONE TABLET BY MOUTH IN THE MORNING AND TWO TABLET IN THE EVENING 270 Tablet 1 025 Active dapagliflozin propanediol (FARXIGA) 10 mg tabIndications:Ty pe 2 diabetes mellitus with diabetic polyneuropathy, without long-term current use of insulin ([facility]) [place] 1 tableta por vIa oral a diario. 90 Tablet 1 025 Active rosuvastatin (CRESTOR) 40 mg tabletIndications :Type 2 diabetes mellitus with diabetic cataract, without long-term current use of insulin ([facility]) [place] 1 tableta por via oral erick vez al tyrone 90 Tablet 1 025 Active TRULICITY 3 mg/0.5 mL pen injectorIndicatio ns:Type 2 diabetes mellitus with diabetic cataract, without long-term current use of insulin ([facility]) INJECT THREE MG SUBCUTANEOUSLY ONCE A WEEK 2 mL 2 025 Active dulaglutide (TRULICITY) 3 mg/0.5 mL pen injectorIndicatio ns:Type 2 diabetes mellitus with diabetic cataract, without long-term current use of insulin ([facility]) Inject 3 mg into the skin once a week. 2 mL 2 025 2024 Discontinued Active Problems Problem Noted Date Diagnosed Date [...] Patient had MRI lumbar spine 10/19/2022 at [facility] that shows multilevel degenerative changes, his worst [...] 47, he has history of an old AL. Patient has diabetes but his A1c yesterday was 8.0. 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 All questions answered with financial services counselor, he will call with any concerns or additional questions. 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 Hoyt) Benign prostatic hyperplasia with urinary hesita ncy 12/22/2019 Internal hemorrhoids 06/20/2019 CKD (chronic kidney disease) stage 3, GFR 30-59 ml/min ([facility]) 11/21/2018 Bilateral chronic knee pain 06/07/2017 Pulmonary hypertension ([facility]) 7 Overview (08/18/2021): Severe, cardiac cath 10/11/2016 AICD (automatic cardioverter/defibrillator) pres ent 05/23/2017 Overview (08/18/2021): Single chamber, placed in [place] [facility] #[phone], #[phone]) Anxiety and depression 05/23/2017 B12 deficiency 05/23/2017 Chronic lumbar radiculopathy 05/23/2017 OA (osteoarthritis) of knee 05/23/2017 Overview (08/18/2021): See LS xray 2017 - mod-severe DJD hips, incompletely visualized. bilateral Diabetes mellitus with diabetic cataract ([facility]) 05/23/2017 Overview (08/18/2021): Bilateral GERD (gastroesophageal reflux disease) 7 Hypercholesteremia 05/23/2017 Hypertension 05/23/2017 Mitral valve regurgitation 05/23/2017 Systolic CHF ([facility]) 05/23/2017 Overview (08/18/2021): S/p single chamber AICD EF 10-20 % Encounters Date Type Department Care Team Description 03/26/2025 2:20 PM EDT Office Visit [address] [phone] Clement Shaw, DMD 03/24/2025 4:20 PM EDT Office Visit [address] [phone] Clement Shaw, DMD 03/03/2025 1:00 PM EDT Office Visit [address] [phone] Clement Shaw, ISMA 02/24/2025 11:00 AM EDT Office Visit [address] [phone] Clement Shaw, ISMA 01/16/2025 10:20 AM EDT Office Visit [address] [phone] Clement Shaw, ISMA 01/16/2025 Interim Notes [address] [phone] Judy Rogel, PEDRO 01/13/2025 1:40 PM EDT Office Visit [address] [phone] Morgan Martinez, PharmD from Last 3 Months Immunizations Immunization Administration [...] 04/05/2021, 021 PNEUMOCOCCAL CONJUGATE PCV 2 0 (Prevnar 20) 06/03/2024 PNEUMOCOCCAL POLYSACCHARIDE PPV23 (Pneumovax 23) 06/16/2016 TDAP 06/16/2016 ZOSTER VACCINE, RECOMBINANT (SHINGRIX) 4,12/21/2022 Zoster, Live Vaccine (Zostavax) 06/16/2016 Family History [...] Sign Reading Time Taken Comments Blood Pressure 132/90 01/16/2025 11:32 AM EDT Pulse 70 01/16/2025 11:32 AM EDT Temperature 36.4 C (97.6 F) 01/13/2025 1:43 PM EDT Respiratory Rate 18 01/13/2025 1:43 PM EDT Oxygen Saturation 96% 01/13/2025 1:43 PM EDT Inhaled Oxygen Concentration - - Weight 81.6 kg (180 lb) 01/13/2025 1:43 PM EDT Height 185.4 cm (6' 1 ) 01/13/2025 1:43 PM EDT Body Mass Index 23.75 01/13/2025 1:43 PM EDT Plan of Treatment Upcoming Encounters Date Type Department Care Team (Late st Contact Info) Description 06/12/2025 2:00 PM EST Office Visit [facility] [address] [place] [address] Manuel Harmon, [facility] [address] [place] [address] Health Maintenance Due Date Last Done Comments Medicare Annual Wellness Visit [address] Colonography 2000 Colonoscopy 2000 Colorectal Cancer Screening 2000 FIT/gFOBT 2000 Fecal DNA 2000 Flexible Sigmoidoscopy 2000 Diabetes Foot Exam 01/20/2023 01/20/2022 Retinopathy Screening 09/14/2023 09/14/2022, 022 Depression Monitoring 01/09/2025 10/09/2024 , 01/30/2024, 10/30/2023, Additional history exists Falls Prevention 01/29/2025 01/30/2024, 09/29/2021 Urine Albumin Creatinine Rat io Screening 01/31/2025 02/01/2024, 12/21/2022, 09/21/2021 Hemoglobin A1c 02/24/2025 11/25/2024, 012 08/2024, 05/08/2024, Additional history exists Dental Prophy 03/03/2025 09/01/2024, 01/04, 07/16/2023, Additional history exists Xfe-HQLCE-33 ( season) 2025 03/25/2022, 06/07/2021, 11/05/2020, Additional history exists Imm-Influenza (#1) 2025 04/15/2024, 1 , 06/09/2022, Additional history exists Lipid Screening 06/13/2025 06/13/2024, 01/05, 02/01/2024, Additional history exists Serum Creatinine 06/13/2025 06/13/2024, , 01/03/2024, Additional history exists Dental BW 09/03/2025 09/01/2024, 01/04, 07/16/2023, Additional history exists Dental Examination 09/03/2025 09/01/2024, 0 01/16/2024, 07/16/2023, Additional history exists Dental Perio Charting 09/03/2025 09/01/2024 , 01/16/2024, 07/16/2023 Tobacco Screening 01/16/2026 01/16/2025 Imm-DTaP/Tdap/Td (2 - Td or Tdap) 06/16/2026 016 Dental FMX/Pano 12/18/2026 12/16/2021 Hepatitis C Screening Completed 12/21/2022 Imm-Zoster, Recombinant Completed 10/30/19 24, 12/21/2022, 06/16/2016 Imm-Pneumococcal 50+ Completed 06/03/2024, 04/05/2021, 04/05/2021, Additional history exists Alcohol and Drug Screen Completed 10/10/19 25, 01/30/2024, 10/30/2023, Additional history exists Procedures Procedure Name Priority Date/Time Associated Diagnosis Comments Max COMPLETE DENTURE - MAXILLARY Routine 03/24/2025 4:20 PM EDT Complete edentulism, unspecified edentulism class CASE PRESENTATION SUBS DTL & EXTENSIVE TX PLN Routine 03/24/2025 4:20 PM EDT Complete edentulism, unspecified edentulism class IMAGING SCANNED DOCUMENT 03/19/2025 3:00 AM EDT REFERRAL SCANNED DOCUMENT 03/04/2025 3:00 AM EDT DENTURE WAX TRY IN Routine 03/03/2025 1: 00 PM EDT Complete edentulism, unspecified edentulism class WAX-RIMS Routine 02/24/2025 11:00 AM EDT Complete edentulism, unspecified edentulism class COMPLETE DENTURE - FINAL IMPRESSIONS Routine 01/16/2025 10:20 AM EDT Complete edentulism, unspecified edentulism class GLUCOSE, BLOOD BY GLUCOSE MONITORING DEVICE (CLIA WAIVED)POCT Routine 01/13/2025 1:44 PM EDT Type 2 diabetes mellitus with diabetic cataract, without long-term current use of insulin ([facility]) OTHER ORDERS SCANNED DOCUMENT 01/12/2025 3:00 AM EDT HGBA1C W/MPG Routine 11/25/2024 2:15 PM EDT Type 2 diabetes mellitus with diabetic polyneuropathy, without long-term current use of insulin ([facility]) COMP PERIODONTAL EVALUATION - NEW/EST PATIENT Routine [...] hyperglycemia, without long-term current use of insulin ([facility]) Primary hypertension Hypercholesteremia LIPID PANEL Routine 06/13/2024 8:44 AM EST Type 2 diabetes mellitus with hyperglycemia, without long-term current use of insulin ([facility]) Hypercholesteremia MICROALBUMIN/CREATININ E RATIO, URINE, RANDOM Routine 02/01/2024 10:20 AM EDT Type 2 diabetes mellitus with hyperglycemia, without long-term current use of insulin ([facility]) ACUTE HEPATITIS PANEL W/RFLX Routine 12/21/2022 9:29 AM EDT Routine screening for STI (sexually transmitted infection) REFERRAL TO OPHTHALMOLOGY 09/14/2022 3:00 AM EST INTRAORAL - COMP SERIES OF RADIOGRAPHIC IMAGES Routine 12/16/2021 3:00 PM EDT Encounter for dental examination from Last 3 Months or Most Recently Relevant to Health Maintenance Results * IMAGING SCANNED DOCUMENT (03/19/2025 3:00 AM EDT) 03/19/2025 3:00 AM EDT Conyacimar Siddiqi PA-C SCAN IMAGING Final Result * REFERRAL SCANNED DOCUMENT (03/04/2025 3:00 AM EDT) 03/04/2025 3:00 AM EDT SmartSyn[employer] Siddiqi PA-C SCAN REFERRAL Final Result * (ABNORMAL) GLUCOSE, BLOOD BY GLUCOSE MONITORING DEVICE (CLIA WAIVED)POCT Routine (01/13/2025 1:44 PM EDT) GLUCOSE 166(A) 70 - 100 mg/dL [facility] POCT Capillary Blood Blood / Unknown 1:44 PM EDT Morgan Gonzalez PharmD LAB - BLOOD D RAW Final Result [facility] POCT * OTHER ORDERS SCANNED DOCUMENT (01/12/2025 3:00 AM EDT) 01/12/2025 3:00 AM EDT [employer] Rosimar Siddiqi PA-C SCAN OTHER ORDERS Final Resu lt * (ABNORMAL) HGBA1C W/MPG (11/25/2024 2:15 PM EDT) HEMOGLOBIN A1C 8.3(H) <5.7 % [facility] Comment: For someone without known diabetes, a [...] A1c for diagnosis of diabetes for children. MEAN PLASMA GLUCOSE 218 mg/dL (calc) [facility] Blood Blood / Unknown 11/25/2024 2 :15 PM EDT 11/25/2024 2:16 PM EDT Narrative [facility] - 11/26/2024 4:59 AM EDT FASTING:NO Morgan Gonzalez PharmD LAB - BLOOD D RAW Final Result [facility] [address] [place] [phone], [facility] [address] [place] [phone] * (ABNORMAL) LIPID PANEL (06/13/2024 8:44 AM EST) CHOLESTEROL, TOTAL 190 <200 mg/dL [facility] HDL CHOLESTEROL 55 > OR = 40 mg/dL [facility] TRIGLYCERIDES 198(H) <150 mg/dL [facility] LDL-CHOLESTEROL 103(H) 99 mg/dL (calc) [facility] Comment: Reference range: <100 Desirable range <100 mg/dL for primary prevention; <70 mg/dL for patients with CHD or diabetic patients with > or = 2 CHD risk factors. LDL-C is now calculated using the Alessandro calculation, which is a validated novel method providing better accuracy than the Friedewald equation in the estimation of LDL-C. Eros VENCES et al. WAGNER. 2013;310(19): 0519-4954 (http://education.Neventum/faq/SBZ824) CHOL/HDLC RATIO 3.5 <5.0 (calc) [facility] NON-HDL CHOLESTEROL 135(H) <130 mg/dL (calc) [facility] Comment: For patients with diabetes plus 1 major ASCVD risk factor, treating to a non-HDL-C goal of <100 mg/dL (LDL-C of <70 mg/dL) is considered a therapeutic option. Blood Blood / Unknown 06/13/2024 8 :44 AM EST 06/13/2024 8:44 AM EST Narrative [facility] - 06/14/2024 7:41 AM EST FASTING:YES us Carola Siddiqi PA-C LAB - BLOOD DRAW Final Resul t [employer] [address] [address], [facility] [address] [phone] * (ABNORMAL) COMPREHENSIVE METABOLIC PANEL (06/13/2024 8:44 AM EST) GLUCOSE 167(H) 65 - 99 mg/dL [facility] Comment: Fasting reference interval For someone without known diabetes, a glucose value >125 mg/dL indicates that they may have diabetes and this should be confirmed with a follow-up test. UREA NITROGEN (BUN) 25 7 - 25 mg/dL [facility] CREATININE (blood) 1.40(H) 0.70 - 1.35 mg/dL [facility] EGFR 55(L) > OR = 60 mL/min/1. 73m2 [facility] BUN/CREATININE RATIO 18 6 - 22 (calc) [facility] SODIUM 141 135 - 146 mmol/L [facility] POTASSIUM 4.5 3.5 - 5.3 mmol/L [facility] CHLORIDE 103 98 - 110 mmol/L [facility] CARBON DIOXIDE 29 20 - 32 mmol/L [facility] CALCIUM 9.6 8.6 - 10.3 mg/dL [facility] PROTEIN, TOTAL 7.0 6.1 - 8.1 g/dL [facility] ALBUMIN 4.1 3.6 - 5.1 g/dL [facility] GLOBULIN 2.9 1.9 - 3.7 g/dL (calc) [facility] ALBUMIN/GLOBULI N RATIO 1.4 1.0 - 2.5 (calc) [facility] BILIRUBIN, TOTAL 0.6 0.2 - 1.2 mg/dL [facility] ALKALINE PHOSPHATASE 41 35 - 144 U/L [facility] AST 25 10 - 35 U/L [facility] ALT 31 9 - 46 U/L [facility] Blood Blood / Unknown 06/13/2024 8 :44 AM EST 06/13/2024 8:44 AM EST Narr[employer] - 06/14/2024 7:41 AM EST FASTING:YES us Carola Siddiqi PA-C LAB - BLOOD DRAW Final Resul t Performing Organization Address [facility] de Phone Number [facility] [address] [address], [facility] [address] [phone] * MICROALBUMIN/CREATININE RATIO, URINE, RANDOM (02/01/2024 10:20 AM EDT) CREATININE, RANDOM URINE 118 20 - 320 mg/dL [facility] MICROALBUMIN 2.4 mg/dL [employer] [facility] Comment: Reference Range Not established MICROALBUMIN/CREA TININE RATIO, RANDOM URINE 20 <30 mg/g creat [facility] Comment: The ADA defines abnormalities in albumin excretion as follows: Albuminuria Category Result (mg/g creatinine) Normal to Mildly increased <30 Moderately increased 30-299 Severely increased > OR = 300 The ADA recommends that at least two of three specimens collected within a 3-6 month period be abnormal before considering a patient to be within a diagnostic category. Urine Urine specimen / Unknown 02/01/2024 10:20 AM EDT 02/01/2024 10:21 AM EDT Narrative [employer] - 02/02/2024 6:20 PM EDT FASTING:YES us Carola Siddiqi PA-C LAB URINE AMBULATORY Final R esult [facility] [address] [address], [facility] [address] [address] * HEPATITIS PANEL W/RFLX (12/21/2022 9:29 AM EDT) HEPATITIS A IGM ANTIBODY NON-REACT MARCELINA NON-REACT MARCELINA [facility] COMMENT [facility] HEPATITIS B SURFACE ANTIGEN NON-REACT MARCELINA NON-REACT MARCELINA [facility] HEPATITIS B CORE IGM ANTIBODY NON-REACT MARCELINA NON-REACT MARCELINA [facility] HEPATITIS C ANTIBODY NON-REACT MARCELINA NON-REACT MARCELINA [facility] SIGNAL TO CUT-OFF 0.04 <1.00 [facility] Comment: HCV antibody was non-reactive. There is no laboratory evidence of HCV infection. In most cases, no further action is required. However, if recent HCV exposure is suspected, a test for HCV RNA (test code 37809) is suggested. For additional information please refer to http://Risk I/O.Quat-E/faq/IGT36d2 (This link is being provided for informational/ educational purposes only.) Blood Blood / Unknown 12/21/2022 9 :29 AM EDT 12/21/2022 9:30 AM EDT Narrative [employer] [facility] - 12/21/2022 8:06 PM EDT FASTING:NO For additional information, please refer to http://Risk I/O.Quat-E/faq/BNN327 (This link is being provided for informational/ educational purposes only.) us Carola Siddiqi PA-C LAB - BLOOD DRAW Final Resul t [facility] [address] [address], [facility] [address] [phone] * REFERRAL TO OPHTHALMOLOGY (09/14/2022 3:00 AM EST) 09/14/2022 3:00 AM EST us Carola MIDDLETONC REFERRAL Final Result from Last 3 Months or Most Recently Relevant to Health Maintenance Insurance [facility] - DENTAL [facility]
--- OUTSIDE RECORDS SUMMARY | 2025-04-14 10:46 | XMS_ITS | Patient Health Record ---
[facility] Organization [facility] Address [address] [place] [address] Care Team Providers Care Financial Services Sales Representative Name Role Phone Adarsh CASTANEDA, Laura Primary Care Provider Unavail able Aravind Black Unavailable [phone] Allergies No Known Allergies Results Component Value Reference Range Notes HEMOGLOBIN A1C (GLYCOHEMOGLO BIN) Reviewed date:12/08/2024 10:39:49 AM Interpretation: Performing Lab: Notes/Report: HEMOGLOBIN A1C % (HH) 8.0 HEMOGLOBIN A1C (GLYCOHEMOGLO BIN) Reviewed date:03/16/2025 11:08:05 AM Interpretation: Performing Lab: Notes/Report: HEMOGLOBIN A1C % (HH) 8.0 Reason For Referral No Information Medications Medication SIG (Take, Route, Frequency, Duration) Notes Start Date End Date Status Tadalafil Active Ammonium Lactate 12 % 1 application Exte rnally to affected areas of dry skin to feet except for between the toes Twice a day; Duration: 30 days Active Tamsulosin HCl Activ e [place] 3 Active Fish Oil Not-Taking Rosuvastatin Calcium 40 MG 1 tablet Orally Once a day; Duration: 30 day(s) Active Januvia 100 MG 1 tablet Orally Once a day; Duration: 30 day(s) Not-Rodolfo ing Metoprolol Tartrate 50 MG 1 tablet with food Orally Twice a day; Duration: 30 day(s) Active Glimepiride 4 MG 1 tablet Orally twic e a day; Duration: 30 days Active Entresto 24-26 MG 1 tablet Orally Twic e a day; Duration: 30 day(s) Not-Rodolfo ing Losartan Potassium 25 MG 1 tablet Orally Once a day; Duration: 30 day(s) Active Crestor Not-Taking Finasteride Active Extra Depth Orthopedic Shoes (1 Pair) with Customized Heat Molded Multidensity Innersoles (3 Pair) as directed Dx: NIDDM/Polyneuropathy (E11.42), Hammertoe Foot Deformity (M20.41,M20.42), Preulcerative Skin Lesion(s) (L85.1 06/12/2024 Active Furosemide 20 MG 1 tablet Orally Once a day; Duration: 30 day(s) Active Warfarin Sodium Not- Taking eliquis 5 mg Active Trulicity 4.5 MG/0.5ML as directed Subcutaneous Active Farxiga 5 MG 1 tablet Orally Once a day; Duration: 30 day(s) Active Vitamin D3 Active Immunizations Vaccine Route Administration Date Status Comme nts Influenza Unknown 05/06/2024 Administered Social History Tobacco Use: Social History Observation [...] Problem Acquired hammer toe of right foot (3852988330564119 ) Other hammer toe(s) (acquired), right foot (M20.41) Active confirmed Response to treatment, Improvemen t Problem Acquired hammer toe of left foot (5851463944021165 ) Other hammer toe(s) (acquired), left foot (M20.42) Active confirmed Response to treatment, Improvemen t Problem Polyneuropathy due to type 2 diabetes mellitus (870474255) Type 2 diabetes mellitus with diabetic polyneuropathy (E11.42) Active confirmed Vital Signs Blood pressure diastolic 72 mm Hg 03/16/2025 Height 6ft 1in in 03/16/2025 Blood pressure systolic 128 mm Hg 03/16/2025 Weight 177 lbs 03/16/2025 BMI 23.35 kg/m2 03/16/2025 Procedures Procedure Date Ordered Date Performed Result Body Sit e 33149-PKURIQZ NAIL, 6 OR MORE 06/12/2024 N/A 02453-ENRQ SKIN LESIONS, OVER 4 06/12/2024 N/A 89973-SKDKYOL NAIL, 6 OR MORE 09/11/2024 N/A 61725-JIYV SKIN LESIONS, OVER 4 09/11/2024 N/A 69929-VFGXQKM NAIL, 6 OR MORE 12/08/2024 N/A 10290-CILT SKIN LESIONS, OVER 4 12/08/2024 N/A 11534-RUMKGQT NAIL, 6 OR MORE 03/16/2025 N/A 03041-EZUO SKIN LESIONS, OVER 4 03/16/2025 N/A Encounters Encounter Location Date Provider Diagnosis [address] [address] 06/12/2024 Aravindstanford SarabiaSofia Type 2 diabetes mellitus with diabetic polyneuropathy E11.42 ; Tinea unguium B35.1 ; Other hammer toe(s) (acquired), right foot M20.41 and Other hammer toe(s) (acquired), left foot M20.[address] [address] 09/11/2024 Aravindstanford Black Type 2 diabetes mellitus with diabetic polyneuropathy E11.42 ; Tinea unguium B35.1 ; Other hammer toe(s) (acquired), right foot M20.41 and Other hammer toe(s) (acquired), left foot M20.[address] [address] 12/08/2024 Aravindstanford Black Type 2 diabetes mellitus with diabetic polyneuropathy E11.42 ; Tinea unguium B35.1 and Xerosis of skin L85.[address] [address] 03/16/2025 Aravind Sofia Type 2 diabetes mellitus with diabetic polyneuropathy E11.42 ; Tinea unguium B35.1 and Xerosis of skin L85.3 Assessments Encounter Date Diagnosis (ICD Code) Assessment Notes Treatment Notes Treatment Clinical Notes Section Notes 06/12/2024 Type 2 diabetes mellitus with diabetic polyneuropathy (ICD-10 - E11.42) 06/12/2024 Tinea unguium (ICD-10 - B35.1) 09/11/2024 Type 2 diabetes mellitus with diabetic polyneuropathy (ICD-10 - E11.42) 09/11/2024 Tinea unguium (ICD-10 - B35.1) 12/08/2024 Type 2 diabetes mellitus with diabetic polyneuropathy (ICD-10 - E11.42) 12/08/2024 Tinea unguium (ICD-10 - B35.1) 03/16/2025 Type 2 diabetes mellitus with diabetic polyneuropathy (ICD-10 - E11.42) 03/16/2025 Tinea unguium (ICD-10 - B35.1) 03/16/2025 Xerosis of skin (ICD-10 - L85.3) 09/11/2024 Other hammer toe(s) (acquired), right foot (ICD-10 - M20.41) Response to treatment,Impro vement 06/12/2024 Other hammer toe(s) (acquired), right foot (ICD-10 - M20.41) Patient Educated with: DIABETIC FOOT CARE INSTRUCTIONS. pdf (DIABETIC FOOT CARE INSTRUCTIONS. pdf) 09/11/2024 Other hammer toe(s) (acquired), left foot (ICD-10 - M20.42) Response to treatment,Impro vement 12/08/2024 Xerosis of skin (ICD-10 - L85.3) 06/12/2024 Other hammer toe(s) (acquired), left foot (ICD-10 - M20.42) Plan Of Treatment Pending Test Test Name Order Date 76631-LUGKMKJ NAIL, 6 OR MORE 12/01/2020 95470-BZZMUAN NAIL, 6 OR MORE 03/02/2021 30689-MOYOKVY NAIL, 6 OR MORE 06/01/2021 83118-MQHMWED NAIL, 6 OR MORE 08/31/2021 20850-EPSTSHT NAIL, 6 OR MORE 11/30/2021 08055-WHDLFRZ NAIL, 6 OR MORE 03/01/2022 22378-RHUZCGO NAIL, 6 OR MORE 05/31/2022 29993-OFWJUEM NAIL, 6 OR MORE 08/30/2022 47410-MBWQWUC NAIL, 6 OR MORE 11/29/2022 76941-CUEBFRA NAIL, 6 OR MORE 02/28/2023 54595-OEGGDPK NAIL, 6 OR MORE 05/30/2023 68078-AMLKUPZ NAIL, 6 OR MORE 09/12/2023 08727-RYTZWUV NAIL, 6 OR MORE 12/06/2023 18548-GQSPGCP NAIL, 6 OR MORE 03/06/2024 01108-HZKHOPV NAIL, 6 OR MORE 06/12/2024 01287-MOWUKDH NAIL, 6 OR MORE 09/11/2024 70324-STWAUOG NAIL, 6 OR MORE 12/08/2024 12571-EWQGYIB NAIL, 6 OR MORE 03/16/2025 96821-Ltsyuvgl Plate 03/06/2024 97699-Ygpfbnoo Plate 12/06/2023 38833-Gpztwnzw Plate 09/12/2023 10030-Rvzsancz Plate 06/01/2021 75888-Afozcprw Plate 05/30/2023 27650-Ntawsqav Plate 02/28/2023 51970-Zekrfgdz Plate 11/29/2022 45073-Ewewfzln Plate 08/30/2022 20196-Ltnfotsq Plate 05/31/2022 45929-Xpquswsn Plate 03/01/2022 42229-Desgzgvb Plate 11/30/2021 81064-Xpouaevr Plate 08/31/2021 89151-Ovwpiuwb Plate Each Additional 08/2023 21481-Aoiymsmk Plate Each Additional 09/2023 71690-NBIR SKIN LESIONS, OVER 4 03/16/20 25 81371-OYZU SKIN LESIONS, OVER 4 12/09/19 25 34183-LZNS SKIN LESIONS, OVER 4 09/11/19 25 45297-ZYTI SKIN LESIONS, OVER 4 06/12/20 24 47295-AITU SKIN LESIONS, OVER 4 03/06/20 24 05519-LGIG SKIN LESIONS, OVER 4 09/12/19 24 90456-TACW SKIN LESIONS, OVER 4 12/06/19 24 46542-RTOV SKIN LESIONS, OVER 4 11/30/19 23 82439-KIUQ SKIN LESIONS, OVER 4 02/29/20 23 92746-WPPL SKIN LESIONS, OVER 4 05/30/20 23 03793-VYOF SKIN LESIONS, OVER 4 08/31/19 22 09107-DJJY SKIN LESIONS, OVER 4 06/01/20 21 92897-EVZN SKIN LESIONS, OVER 4 03/02/20 21 36057-JHQK SKIN LESIONS, OVER 4 12/02/19 21 67872-MPES SKIN LESIONS, OVER 4 12/01/19 22 05861-AZBF SKIN LESIONS, OVER 4 03/01/20 22 30682-VIBC SKIN LESIONS, OVER 4 05/31/20 22 79864-ZXIS SKIN LESIONS, OVER 4 08/30/19 23 Next Appt Details Provider Name:Aravind Black , 06/29/2025 01:45:00 PM, [address] [facility], [facility] [address], [place], [address], Insurance Providers Payer Name Payer Address Payer Phone Subscriber Number Group Number Insured Name Patient Relationship to Insured Coverage Start Date Coverage End Date [facility] CCA SCO Claims [address] [place] [phone] [id number] Ayaan Le Self - patient is the insured Medical (General) History Medical History History ICD Code Arthritis Back,Hip,and Knee pain CAD Cataracts Cholesterol Diabetes mellitus Heart disease Surgical History Surgery Date(Month/Year) eye surgery (cataract) 02/2023 back 2022 cataract surgery 2023
[2025-04-14 11:07] LABS: Folate 12.5 ng/mL (> or = 4.0); Vitamin B12 472 pg/mL (200-900)
== END 2025-04-14 09:19 | disposition home or self-care (01) ==
LOC: HO.LAB 09:18
PROVIDERS: PCP Internal Medicine; Visit Provider Internal Medicine
DX: E53.8 Deficiency of other specified B group vitamins (principal); I50.22 Chronic systolic (congestive) heart failure; D64.9 Anemia, unspecified; R80.9 Proteinuria, unspecified; E78.5 Hyperlipidemia, unspecified; E55.9 Vitamin D deficiency, unspecified
CPT/HCPCS: 36415; 80053; 80061; 82043; 82306; 82570; 82607; 82746; 83540; 83880; 85025

== ENCOUNTER 2025-04-21 09:35 | Outpatient (AMB) | payer OTHER, SELFPAY ==
[2025-04-21 09:43] VITALS: BP 110/60; PULSE 77; RESP 18; TEMP 36.2; O2SAT 96; BMI 24.1
--- NOTE | 2025-04-21 09:43 | MHC.PC.OV ---
Vital Signs 04/21/25 09:43 Height 6 ft 1 in Weight 182 lb 6 oz BMI 24.1 BP 110/60 Blood Pressure Location Lt brachial Position Sitting Respiration 18 Pulse 77 Pulse Source Pulse Oximeter Temp 97.1 F Temp Source Temporal Artery Scan Pulse Oximetry (%) 96 Oxygen Delivery Method Room Air Intake Visit Reasons: dm Plant Engineer Required: No Accompanied by: Self / Same As Patient Allergies No Known Allergies Allergy (Verified 04/21/25 10:15) Medication List - Last Reconciled 04/21/25 by Laura Orlando MD albuterol sulfate 90 mcg/actuation (Ventolin HFA) 2 puffs inhalation Q6H PRN 30 days apixaban (Eliquis) 5 mg PO BID cholecalciferol (vitamin D3) 25 mcg PO DAILY dapagliflozin propanediol (Farxiga) 5 mg PO DAILY dulaglutide (Trulicity) 3 mg (0.5 mL) subcut QWEEK 90 days finasteride 5 mg PO DAILY furosemide 20 mg PO DAILY glimepiride 4 mg PO DAILY losartan 25 mg PO DAILY metoprolol succinate ER 50 mg PO BID omega-3 fatty acids 1,000 mg PO DAILY rosuvastatin 40 mg PO DAILY [safety toilet frame As directed] tamsulosin 0.4 mg PO DAILY Tobacco use date assessed: 04/21/25 Fall risk assessment: 1 Fall in past year Last assessed Fall Risk: 04/21/25 Dental Screening Dental Screen Date: 04/21/25 Did you have a dental visit in the last 12 months?: Yes Did you have a dental problem in the last 6 months where you did not have access to dental care?: No Was dental information given to patient?: Patient has dentist HPI HPI Comments History of Present Illness Details The patient is a 69-year-old male presenting for follow-up of diabetes and other chronic conditions. A1c today of 7.1% which is very close to goal. The patient has a history of atrial fibrillation for which he is currently taking metoprolol and other medications. He reports that his ejection fraction was measured between 30 to 35%, indicating reduced cardiac function but improved from the last time as per patient. The patient has been diagnosed with congestive heart failure, as indicated by an NT-proBNP level of 1081. He has not experienced significant weight gain, and his weight remains stable with daily monitoring. Seems euvolemic. The patient has hyperlipidemia with a cholesterol level of 225 mg/dL and triglycerides at 253 mg/dL. LDL cholesterol is noted to be 101 mg/dL, and rosuvastatin is part of his treatment regimen. Ezetimibe will be added to the regimen. Proteinuria was noted on recent testing, and the patient is under the care of a community engagement coordinator for kidney-related issues. [facility] Surgical History History of cataract surgery History of pacemaker History of back surgery Family History Father No problems noted. Mother Alzheimer disease Social History Housing: House Alcohol intake: current Alcohol intake frequency: holidays/special occasions only Alcohol type: beer Patient Tobacco Use Status: Never used Tobacco e-Cigarette/Vaping Use: Never Used Second Hand Smoke Exposure: No service: No Current occupational status: retired Cognitive needs: Yes Hearing needs: No Vision needs: Yes Questionnaire Thrive Questionnaire Date Thrive assessed: 11/26/24 I am a: Patient What is your living situation today?: I choose not to answer this question Within the past 12 months, did the food you bought not last and you didn't have the money to get more?: I choose not to answer this question Within the past 12 months, did you worry whether your food would run out before you got money to buy more?: I choose not to answer this question Do you have trouble paying for medicines?: No Do you have trouble getting transportation to medical appointments?: I choose not to answer this question Do you have trouble paying your heating and electricity bill?: I choose not to answer this question Do you have trouble taking care of your child, family member or friend?: I choose not to answer this question Do you have trouble with day-to-day activities such as bathing, preparing meals, shopping, managing finances, etc.?: I choose not to answer this question Are you currently unemployed and looking for a job?: I choose not to answer this question Are you interested in more education?: I choose not to answer this question Please select the resources that you would like help with: None Currently or been in a relationship where the following occur: I choose not to answer THRIVE Score: 0 AUDIT C Alcohol Use Questionnaire (AUDIT-C) 1. How often do you have a drink containing alcohol?: Monthly or less 2. How many drinks containing alcohol do you have on a typical day when you are drinking?: 1 or 2 3. How often do you have six or more drinks on one occasion?: Weekly Total Score: 4 MYRA-7 AMB Questionnaire MYRA-7 Date MYRA - 7 assessed: 12/02/24 Source: Developed by Drs. Dave Thomason, Tuyet Pang, Zaki Schulz and colleagues, with an educational damien from [employer]. Review of Systems Const All systems reviewed & are unremarkable except as noted in HPI and below Card Denies chest pain at rest, Denies chest pain with activity, Denies edema, Denies irregular heart rhythm, Denies claudication, Denies dyspnea, Denies dyspnea on exertion, Denies orthopnea, Denies paroxysmal nocturnal dyspnea and Denies slow heart rate Resp Denies cough, Denies dyspnea and Denies dyspnea on exertion GI Denies abdominal pain, Denies change in bowel habits, Denies excessive flatus, Denies nausea and Denies vomiting Denies urinary hesitancy, Denies urinary incontinence and Denies urinary urgency Neuro Denies lack of coordination Physical exam (Primary Care) Vital Signs: Last Vital Signs Temp 97.1 F 04/21/25 09:43 Pulse 77 04/21/25 09:43 Resp 18 04/21/25 09:43 BP 110/60 04/21/25 09:43 Pulse Ox 96 04/21/25 09:43 Oxygen Delivery Method Room Air 04/21/25 09:43 BMI result Body Mass Index 24.1 Tobacco/Smoking Status: Tobacco use Status Tobacco use date assessed 04/21/25 04/21/25 09:51 Patient Tobacco Use Status Never used Tobacco 04/21/25 09:51 e-Cigarette/Vaping Use Never Used 04/21/25 09:51 Thrive Assessment: Date of Thrive Assessment Date Thrive assessed 11/26/24 04/21/25 09:51 Currently or been in a relationship where the following occur: I choose not to answer Resp Effort & Inspection: normal respiratory effort Auscultation: clear to auscultation bilaterally Cardio Jugular venous distension: no JVD Rate: regular rate Rhythm: regular rhythm Heart sounds: S1 normal heart sound present and S2 normal heart sound present Extrem General: Yes full ROM Results AMB Hemoglobin A1c AMB Hemoglobin A1c 7.1 % Last Edit by STEPHAN Jacobsen on 04/21/25 10:51 Results Reviewed Results Reviewed: Laboratory Last Values Hgb A1c (Clinic) 7.1 % (4.0-6.0) H 04/21/25 10:31 Coding Level of Care Code Est Pt Level 4 (02509) Complex EM visit Add On G2211 Diagnoses Essential hypertension I10 Type 2 diabetes mellitus with hyperglycemia, without long-term current use of insulin E11.65 Diabetes mellitus type: type 2 Diabetes mellitus terminal manager insulin use: without prison use Diabetes mellitus complication status: with hyperglycemia Chronic systolic (congestive) heart failure I50.22 Persistent atrial fibrillation I48.19 Hyperlipidemia LDL goal <70 E78.5 Time Spent (min) 24 Assessment & Plan Assessment & Plan (1) Essential hypertension: Code(s): I10 - Essential (primary) hypertension Category: Medical (2) Diabetes mellitus: Code(s): E11.9 - Type 2 diabetes mellitus without complications Category: Medical Qualifiers: Diabetes mellitus type: type 2 Diabetes mellitus terminal manager insulin use: without prison use Diabetes mellitus complication status: with hyperglycemia Qualified Code(s): E11.65 - Type 2 diabetes mellitus with hyperglycemia (3) Chronic systolic (congestive) heart failure: Code(s): I50.22 - Chronic systolic (congestive) heart failure Category: Medical (4) Persistent atrial fibrillation: Code(s): I48.19 - Other persistent atrial fibrillation Category: Medical (5) Hyperlipidemia LDL goal <70: Code(s): E78.5 - Hyperlipidemia, unspecified Category: Medical Plan Plan Patient was informed and verbally consented to the use of an ambient scribe for clinic note documentation during this visit. 1. Diabetes Mellitus The patient is on Farxiga for diabetes management. 2. Atrial Fibrillation The patient is taking metoprolol for atrial fibrillation management. 3. Congestive Heart Failure The patient has a low ejection fraction and elevated NT-proBNP, indicating heart failure. 4. Hyperlipidemia The patient is on rosuvastatin for hyperlipidemia management. 5. Proteinuria The patient is under nephrology care for proteinuria management. Orders: Orders Lipid Panel 4 Months E78.5 - Hyperlipidemia, unspecified Microalbumin, Random (w Creat) 4 Months R80.9 - Proteinuria, unspecified NT Pro B Type Natriuretic Pept 4 Months I50.22 - Chronic systolic (congestive) heart failure AMB Hemoglobin A1c Today Z13.9 - Encounter for screening, unspecified Vitamin D 25-OH Total 4 Months E55.9 - Vitamin D deficiency, unspecified Comprehensive Percival. Panel Fast 4 Months I50.22 - Chronic systolic (congestive) heart failure Referrals Pain Management Referral M54.31 - Sciatica, right side Medications: New ezetimibe 10 mg PO DAILY 90 tabs 1RF 90 days Changed From glimepiride 4 mg PO DAILY To glimepiride 4 mg PO DAILY 90 tabs 1RF 90 days From rosuvastatin 40 mg PO DAILY To rosuvastatin 40 mg PO DAILY 90 tabs 1RF 90 days From losartan 25 mg PO DAILY To losartan 25 mg PO DAILY 90 tabs 1RF 90 days
--- OUTSIDE RECORDS SUMMARY | 2025-04-21 12:14 | XMS_ITS | Patient Health Record ---
Author Organization [facility] Address [address] [place] [address] Care Team Providers Care Line Up Worker Name Role Phone Adarsh CASTANEDA, Laura Primary Care Provider Unavail able Aravind Black Unavailable [phone] Allergies No Known Allergies Results Component Value [...] 30 days Active Tamsulosin HCl Activ e [place] 3 Active Fish Oil Not-Taking Rosuvastatin Calcium [...] Problem Acquired hammer toe of right foot (0217527175672899 ) Other hammer toe(s) (acquired), right foot (M20.41) Active confirmed Response to treatment, Improvemen t Problem Acquired hammer toe of left foot (8486269037161916 ) Other hammer toe(s) (acquired), left foot (M20.42) Active confirmed Response to treatment, Improvemen t Problem Polyneuropathy due to type 2 diabetes mellitus (423378326) Type 2 diabetes mellitus with diabetic polyneuropathy (E11.42) Active confirmed Vital Signs Blood pressure diastolic 72 mm Hg 03/16/2025 Height 6ft 1in in 03/16/2025 Blood pressure systolic 128 mm Hg 03/16/2025 Weight 177 lbs 03/16/2025 BMI 23.35 kg/m2 03/16/2025 Procedures Procedure Date Ordered Date Performed Result Body Sit e 98567-AVURUCP NAIL, 6 OR MORE 06/12/2024 N/A 94281-KMJD SKIN LESIONS, OVER 4 06/12/2024 N/A 41818-FAORIEU NAIL, 6 OR MORE 09/11/2024 N/A 27765-MIJH SKIN LESIONS, OVER 4 09/11/2024 N/A 50472-FMESGJV NAIL, 6 OR MORE 12/08/2024 N/A 70358-BDEJ SKIN LESIONS, OVER 4 12/08/2024 N/A 56750-EAQTFHF NAIL, 6 OR MORE 03/16/2025 N/A 01664-AVXR SKIN LESIONS, OVER 4 03/16/2025 N/A Encounters Encounter Location Date Provider Diagnosis [address] [address] 06/12/2024 Aravindstanford SarabiaSofia Type 2 diabetes mellitus with diabetic polyneuropathy E11.42 ; Tinea unguium B35.1 ; Other hammer toe(s) (acquired), right foot M20.41 and Other hammer toe(s) (acquired), left foot M20.[address] [address] 09/11/2024 Aravindstanford Black Type 2 diabetes mellitus with diabetic polyneuropathy E11.42 ; Tinea unguium B35.1 ; Other hammer toe(s) (acquired), right foot M20.41 and Other hammer toe(s) (acquired), left foot M20.[address] [address] 12/08/2024 Aravindstanford Black Type 2 diabetes mellitus with diabetic polyneuropathy E11.42 ; Tinea unguium B35.1 and Xerosis of skin L85.[address] [address] 03/16/2025 Aravind Sofia Type 2 diabetes mellitus [...] Treatment Pending Test Test Name Order Date 74088-VMMYKDO NAIL, 6 OR MORE 12/01/2020 00124-EWGAUJE NAIL, 6 OR MORE 03/02/2021 51896-UOXGZYR NAIL, 6 OR MORE 06/01/2021 26580-UZZENSX NAIL, 6 OR MORE 08/31/2021 47523-YMRSHBC NAIL, 6 OR MORE 11/30/2021 95274-UBCGCMF NAIL, 6 OR MORE 03/01/2022 03744-ILVJJHN NAIL, 6 OR MORE 05/31/2022 13411-EMUUNGN NAIL, 6 OR MORE 08/30/2022 63540-PBKIBQN NAIL, 6 OR MORE 11/29/2022 70671-CFEYLQZ NAIL, 6 OR MORE 02/28/2023 45574-PGZOPCV NAIL, 6 OR MORE 05/30/2023 87126-UXXNJYI NAIL, 6 OR MORE 09/12/2023 17897-NQTUXMY NAIL, 6 OR MORE 12/06/2023 97197-JAJAVZY NAIL, 6 OR MORE 03/06/2024 76550-SSDWAGE NAIL, 6 OR MORE 06/12/2024 90156-VSXKAZO NAIL, 6 OR MORE 09/11/2024 40163-ZZKULIB NAIL, 6 OR MORE 12/08/2024 08304-GGCEJPS NAIL, 6 OR MORE 03/16/2025 08101-Nyjrnfbg Plate 03/06/2024 86910-Dxkdtorb Plate 12/06/2023 48028-Akuxzury Plate 09/12/2023 23537-Kfohelqe Plate 06/01/2021 15046-Hgqlzjxd Plate 05/30/2023 45063-Fqorxvpn Plate 02/28/2023 48310-Mjcqqozf Plate 11/29/2022 45046-Xkshnmgy Plate 08/30/2022 78552-Pbvzxhxu Plate 05/31/2022 10823-Ksvgoggv Plate 03/01/2022 17562-Dqoigiul Plate 11/30/2021 74544-Wsqzvbwi Plate 08/31/2021 89770-Wykvffjq Plate Each Additional 08/2023 32770-Ehcwnkyj Plate Each Additional 09/2023 66075-TBAR SKIN LESIONS, OVER 4 03/16/20 25 05222-ZWBB SKIN LESIONS, OVER 4 12/09/19 25 58496-CYCP SKIN LESIONS, OVER 4 09/11/19 25 47878-KUYA SKIN LESIONS, OVER 4 06/12/20 24 75326-UVXL SKIN LESIONS, OVER 4 03/06/20 24 05613-OINC SKIN LESIONS, OVER 4 09/12/19 24 67718-ITCV SKIN LESIONS, OVER 4 12/06/19 24 02005-UVHV SKIN LESIONS, OVER 4 11/30/19 23 53588-PYTT SKIN LESIONS, OVER 4 02/29/20 23 16730-HTUO SKIN LESIONS, OVER 4 05/30/20 23 25788-EOET SKIN LESIONS, OVER 4 08/31/19 22 28671-CQWC SKIN LESIONS, OVER 4 06/01/20 21 09150-OJRE SKIN LESIONS, OVER 4 03/02/20 21 14586-ISKA SKIN LESIONS, OVER 4 12/02/19 21 53039-ZMUB SKIN LESIONS, OVER 4 12/01/19 22 91022-RVFB SKIN LESIONS, OVER 4 03/01/20 22 95442-RLQU SKIN LESIONS, OVER 4 05/31/20 22 53123-UCTU SKIN LESIONS, OVER 4 08/30/19 23 Next Appt Details Provider Name:Aravind Black , 06/29/2025 01:45:00 PM, [address] [facility], [facility] [address], [place], [address], Insurance Providers Payer Name Payer Address Payer Phone Subscriber Number Group Number Insured Name Patient Relationship to Insured Coverage Start Date Coverage End Date [facility] [employer] SCO Claims [address] [place] [phone] [id number] Ayaan Le Self - patient is the insured Medical (General) History Medical History History ICD Code Arthritis Back,Hip,and Knee pain CAD Cataracts Cholesterol Diabetes mellitus Heart disease Surgical History Surgery Date(Month/Year) eye surgery (cataract) 02/2023 back 2022 cataract surgery 2023
--- OUTSIDE RECORDS SUMMARY | 2025-04-21 12:14 | XMS_ITS | Clinical Summary ---
Author Organization [address] [place] [address] Address [address] [place] [address] Phone Care Team Providers Care Inspector [employer] Name Role Phone Carola Siddiqi Primary Care Provider [phone] Allergies No known active allergies Medications tadalafiL (CIALIS) 5 mg tablet Active acetaminophen (TYLENOL 8 HOUR) 650 mg 8 hr tablet Take 1 Tablet by mouth 2 times daily for 30 days. 3 Active finasteride (PROSCAR) 5 mg tablet Take 5 mg by mouth daily. Active cholecalciferol (VITAMIN D-3) 25 mcg (1,000 unit) tablet Take 1 tablet by mouth daily. Active FREESTYLE LANCETS [facility] Use to check blood sugar once a [...] two tablets in the afternoon Active omega 4-dok-rwr-fish oil (Fish OiL) 1,000 (120-180) mg capsule Take by mouth 1 (one) time each day. Active rosuvastatin (CRESTOR) 40 mg tablet Take 1 tablet (40 mg total) by mouth 1 (one) time each day. 90 each 3 5 03/04/20 26 Active metoprolol succinate (TOPROL-XL) 50 mg 24 hr tablet Take 2 tablets (100 mg total) by mouth 2 (two) times a day. Do not crush or chew. 360 each 3 5 03/04/20 26 Active losartan (COZAAR) 25 mg tablet Take 1 tablet (25 mg total) by mouth 1 (one) time each day. 90 each 3 5 03/04/20 26 Active dapagliflozin propanediol (Farxiga) 10 mg tablet Take 1 tablet (10 mg total) by mouth 1 (one) time each day. 90 each 5 03/04/20 26 Active apixaban (Eliquis) 5 mg tablet Take 1 tablet (5 mg total) by mouth 2 (two) times a day. 180 each 5 03/04/20 Active Active Problems Problem Noted Date Diagnosed [...] onset Alzheimer's roshan ntia without behavioral disturbance ([facility] V24, [facility] V28) 08/18/2021 Longstanding persistent atri al fibrillation ([facility] V24, [facility] V28) 06/21/2021 Overview (03/04/2025): Rate control [...] Heart failure with reduced e jection fraction ([facility] V24, [facility] V28) 06/15/2021 Microalbuminuria 04/05/2021 Type II diabetes mellitus wi th renal manifestations ([facility] V24, [facility] V28) 04/05/2021 Diabetic polyneuropathy asso ciated with type 2 diabetes mellitus ([facility] V24, [facility] V28) 12/24/2019 Overview (05/13/2024): Used to see podiatry (Dr. Hoyt) Benign prostatic hyperplasia with urinary hesita ncy 12/22/2019 Degenerative joint disease (DJD) of hip 10/02/19 Overview (05/13/2024): See [place] xray 2017 - mod-severe DJD hips, incompletely visualized. Internal hemorrhoids 06/20/2019 CKD (chronic kidney disease) stage 3, GFR 30-59 ml/min ([facility] V24, [facility] V28) 11/21/2018 Chronic pain of left knee 06/07/2017 Anxiety and depression 05/23/2017 B12 deficiency 05/23/2017 Chronic lumbar radiculopathy 05/23/2017 Diabetes mellitus with diabe tic cataract ([facility] V24, [facility] V28) 05/23/2017 Overview (05/13/2024): Bilateral [...] recent heart failure hospitalizations -Cardiac catheterization in [place] in 2017 without significant coronary artery disease -LVEF initially 25% -Seen in the [facility] heart failure and transplant clinic, found [...] 05/23/2017 Overview (09/03/2024): Single chamber, placed in [place] ([facility] #[phone], #[phone]) -Most recent device check from June 2024 [...] Description 04/07/2025 1:10 PM EDT Office Visit [facility] [address] [place] [phone] Josh Li NP FAGAN (dyspnea on exertion) (Primary Dx); Chronic systolic congestive heart failure (CMS/HCC V24, CMS/HCC V28); Orthostatic hypotension; AICD (automatic cardioverter/defibril lator) present; Hypertension, unspecified type; Hypercholesteremia 04/02/2025 1:00 PM EDT Ancillary Procedure [facility] [address] [place] [id number] Encounter for adjustment or management of cardiac device 03/19/2025 12:00 PM EDT Ancillary Procedure [facility] [address] [place] [address] FAGAN (dyspnea on exertion) 03/04/2025 10:40 AM EDT Office Visit [facility] [address] [place] [address] Josh Li NP Atrial fibrillation, unspecified type [...] 05/23/2017 DX:Diabetes mellitus with d iabetic cataract (HCC); COMMENT: Bilateral Type 2 diabetes mellitus (CM S/HCC V24, CMS/[facility] V28) 05/23/2017 DX:Type 2 diabetes mellitus ([facility]) Hypercholesteremia 05/23/2017 DX:Hyperchole steremia Hypertension 05/23/2017 DX:Hypertension OA (osteoarthritis) of knee 05/23/2017 DX:O A (osteoarthritis) of knee; COMMENT: bilateral Mitral valve regurgitation 05/23/2017 DX:Mi tral valve regurgitation AICD (automatic cardioverter/defibrillator) present 05/23/2017 DX:AICD (automatic cardioverter/defibrillator) present; COMMENT: Single chamber, placed in [facility] [place] ([facility] #[phone], #[phone]) Systolic CHF (CMS/[facility] V24, CMS/[facility] V28) 05/23/20 17 DX:Systolic CHF ([facility]); COMMENT: S/p single chamber AICD EF 10-20 % PAF (paroxysmal atrial fibri llation) ([facility] V24, [facility] V28) 05/23/2017 DX:PAF (paroxysmal atrial fibrillation) ([facility]); COMMENT: On chronic coumadin Chronic lumbar radiculopathy 05/23/2017 DX: Chronic lumbar radiculopathy B12 deficiency 05/23/2017 DX:B12 deficienc y GERD (gastroesophageal reflux disease) DX:GERD (gastroesophageal reflux disease) Anxiety and depression 05/23/2017 DX:Anxiet y and depression Old DE (myocardial infarction) 06/01/2017 D X:Old DE (myocardial infarction) Pulmonary hypertension ([facility] V24, [facility] V28) 06/01/2017 DX:Pulmonary hypertension (H CC); [...] 4:00 PM EDT Office Visit Nephrology - [id number] [place] [address] Haile Bey MD [address] [place] [address] 07/08/2025 1:00 PM EST Ancillary Procedure [facility] [address] [facility] [address] [place] [address] Health Maintenance Due Date Last [...] this topic Medical Devices Implanted Type Area [employer] Distribution And Emergency Clerk Device Identifier Shelf Expiration Date Model / Serial / Lot Medt-Card Visia Af Mri Vr [id number]/ 9/2017 Implanted:04/2017 (Quantity not on file) Cardiac ICD Left: Chest [employer] - CARDIAC RHYTH-CRDM VISIA AF MRI VR [id number] / [id number] / Procedures Procedure Name Priority Date/Time Associated Diagnosis Comments CARDIAC DEVICE CHECK- IN [facility]- [facility] Routine 04/02/2025 1:35 PM EDT Encounter for [...] Results * CARDIAC DEVICE CHECK- IN [facility]IC- [facility] (04/02/2025 1:35 PM EDT) Date Time Interrogation Session [id number] CV DEVICE CHECK Implantable Pulse Generator [employer] Distribution [employer] Emergency Clerk MDT CV DEVICE CHECK Implantable Pulse Generator Type ICD CV DEVICE CHECK Implantable Pulse Generator Model Visia AF MRI VR [id number] CV DEVICE CHECK Implantable Pulse Generator Serial Number [id number] CV DEVICE CHECK Battery Status Middle of Service CV DEVICE CHECK Tristan Statistic RV Percent Paced 0.10 CV DEVICE CHECK Atrial Tachy Statistic AT/AF [place] Percent 100.00 CV DEVICE CHECK Lead Channel [...] factors include hyperlipidemia, diabetes, and hypertension. A interpreter deaf was used for today's visit. Baseline ECG [...] Function Comments Resting ejection fraction was 32%. Josh Li NP CV STRESS PROCEDURES Final Resul t * ECG 12 lead (03/04/2025 11:31 AM EDT) [facility] Ventricular Rate ECG 79 BPM GEMUSE Atrial Rate 97 BPM GEMUSE QRS Duration 96 ms GEMUSE Q-T Interval 392 ms GEMUSE QTc 449 ms GEMUSE R [place] -38 degrees GEMUSE T [place] -43 degrees GEMUSE ECG Interpretation Atrial fibrillation Left axis deviation Nonspecific T wave abnormality No previous ECGs available Confirmed by NICK FELDMAN ([id number]) on 03/23/2025 11:24:03 AM GEMUSE 03/04/2025 10:4 6 AM EDT 03/23/2025 11:24 AM EDT Josh Li NP ECG ORDERABLES Edited Result - Final GEMUSE * Urine Albumin Creatinine Ratio (02/01/2024) [facility] Urine Albumin Creatinine Ratio Abstracted Historical Provider HEALTH MAINTENANCE Final Result * Annual BMP Blood Test (02/01/2024) [facility] Annual BMP Blood Test Abstracted Result [facility] Historical Provider HEALTH MAINTENANCE Final Result * Hemoglobin A1c (02/01/2024) Pathologist [facility] Hemoglobin A1C 0.0 % Comment:No interpretation, A bstracted Blood Venous blood specimen / Unknown [facility] Provider LAB BLOOD ORDERABLES [place] Result * Lipid panel (02/01/2024) Pathologist [facility] Triglycerides 0 mg/dL Comment:No interpretation, A bstracted Cholesterol 0 mg/dL Comment:No interpretation, A bstracted HDL 0 mg/dL Comment:No interpretation, A bstracted LDL Cholesterol 0 mg/dL Comment:No interpretation, A bstracted Blood Venous blood specimen / Unknown Result [facility] Provider LAB BLOOD ORDERABLES [place] Result * Colonoscopy (03/21/2023) Pathologist [facility] Colonoscopy No interpretation , Abstracted Anatomical Region Laterality Modality Other [facility] Provider HEALTH MAINTENANCE Final Result * Hepatitis C Screening (12/21/2022) Pathologist [facility] Hepatitis C Screening Abstracted [facility] Provider HEALTH MAINTENANCE Final Result from Last 3 Months or Most Recently Relevant to Health Maintenance Insurance [facility] [employer] [employer]IC[facility] Member Subscriber Plan / Payer (Ef fective 2020-Present) Name:AYAAN FUNES Relation to Subscriber:Self Name:Ayaan Funes Payer ID:[id number] Group ID:[id number] Type:Not on file Address: [place] [address] [place] [address] Care Teams Inspector [employer] Relationship Specialty Start Date End Date Carola Siddiqi PA [facility] [place] [address] [facility] - General 07/21/22
--- OUTSIDE RECORDS SUMMARY | 2025-04-21 12:14 | XMS_ITS | Encounter Summary ---
Author Organization [facility] Address [address] [place] [address] Care Team Providers Care Duplicator Punch Operator Name Role Phone Carola Siddiqi PA-C Primary Care Provider Encounter Details Date Type Department Care Team (Late st Contact Info) Description 02/04/2024 Interim Notes [facility] [address] [place] [address] Julieta Pino [place] [address] [place] [address] Social History Tobacco Use Types Packs/Day Years [...] Description 06/12/2025 2:00 PM EST Office Visit [facility] [address] [place] [phone] Manuel Harmon, [facility] [address] [place] [address] documented as of this encounter Visit Diagnoses Not on filedocumented in this encounter Additional Health Concerns Assessment Noted Time PHQ-9 Depression Total Score: 0 01/30/20 24 1:54 PM PDT documented as of this encounter Care Teams Duplicator Punch Operator Relationship Specialty Start Date End Date Carola Siddiqi PA-C [address] [place] [address] PCP - General [facility] 08/18/21 02/11/25 documented as of this encounter
--- OUTSIDE RECORDS SUMMARY | 2025-04-21 12:14 | XMS_ITS | Clinical Summary ---
Author Organization [facility] Address [address] [place] [address] Care Team Providers Care Paperboard Boxes Estimator Name Role Phone Unavailable Primary Care Provider [...] cataract, without long-term current use of insulin ([facility]) Use to check BG 1x/d DX E11.42 Freestyle Lite 1 Each 022 Active ELIQUIS 5 mg tabIndications:H/ O right heart catheterization,A ICD (automatic cardioverter/defi brillator) present Take 1 Tablet by mouth 2 (two) times daily 180 Tablet 1 022 Active finasteride (PROSCAR) 5 mg tablet Take 5 mg by mouth 04/13/2022 FINASTERIDE 5 MG TABLET [place], [place] [phone] 90.00 Each 2 90 2 Outside Sources Authorized by: FRITZ CARLIN Active metoprolol succinate (TOPROL-XL) 50 mg 24 hr tablet Take 75 mg by mouth 04/13/2022 METOPROLOL SUCC ER 50 MG TAB [place], [place] [phone] 270.00 Each 1 90 2 Outside Sources [...] losartan (COZAAR) 25 mg tabletIndications :Primary hypertension [employer] 1 tableta por vIa oral erick vez al [place] 90 Tablet 1 024 Active lancets (FREESTYLE LANCETS) 28 gaugeIndications: Type 2 diabetes mellitus with diabetic cataract, without long-term current use of insulin ([facility]) Uselo para comprobar la DARION GLUCOSA DIARIA 100 Each 11 025 Active blood sugar diagnostic (FREESTYLE LITE STRIPS) stripsIndications :Type 2 diabetes mellitus with diabetic cataract, without long-term current use of insulin ([facility]) Uselo para comprobar la DARION GLUCOSA DIARIA 100 Each 11 025 Active MISCELLANEOUS MEDICAL SUPPLY MISCIndications:D iabetic polyneuropathy associated with type 2 diabetes mellitus ([facility]),Type 2 diabetes mellitus with diabetic cataract, without long-term current use of insulin ([facility]) by miscellaneous route daily 1 pair of [...] hyperglycemia, without long-term current use of insulin ([facility]) TAKE ONE TABLET BY MOUTH IN THE MORNING AND TWO TABLET IN THE EVENING 270 Tablet 1 025 Active dapagliflozin propanediol (FARXIGA) 10 mg tabIndications:Ty pe 2 diabetes mellitus with diabetic polyneuropathy, without long-term current use of insulin ([facility]) [employer] 1 tableta por vIa oral a diario. 90 Tablet 1 025 Active rosuvastatin (CRESTOR) 40 mg tabletIndications :Type 2 diabetes mellitus with diabetic cataract, without long-term current use of insulin ([facility]) [employer] 1 tableta por via oral erick vez al tyrone 90 Tablet 1 025 Active TRULICITY 3 mg/0.5 mL pen injectorIndicatio ns:Type 2 diabetes mellitus with diabetic cataract, without long-term current use of insulin ([facility]) INJECT THREE MG SUBCUTANEOUSLY ONCE A WEEK 2 mL 2 025 Active dulaglutide (TRULICITY) 3 mg/0.5 mL pen injectorIndicatio ns:Type 2 diabetes mellitus with diabetic cataract, without long-term current use of insulin ([facility]) Inject 3 mg into the skin once [...] Patient had MRI lumbar spine 10/19/2022 at [facility] that shows multilevel degenerative changes, his [...] 47, he has history of an old [place]. Patient has diabetes but his A1c yesterday was 8.0. I asked patient to call his PCP and construction trench digger for medical clearance for surgery, he is [...] given to patient. All questions answered with seaport planning manager, he will call with any concerns or additional questions. 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 ([facility]) 08/18/2021 Senile cardiac amyloidosis ([facility]) 07/04 Overview (02/14/2022): Added automatically from request for surgery [id number] Longstanding persistent atrial fibrillation ([facility]) 06/21/2021 Overview (02/14/2022): Last Assessment & Plan: [...] II diabetes mellitus wi th renal manifestations ([facility]) 04/05/2021 Diabetic polyneuropathy asso ciated with type 2 diabetes mellitus ([facility]) 12/24/2019 Overview (08/18/2021): Used to see podiatry (Dr. Hoyt) Benign prostatic hyperplasia with urinary hesita ncy 12/22/2019 Internal hemorrhoids 06/20/2019 CKD (chronic kidney disease) stage 3, GFR 30-59 ml/min ([facility]) 11/21/2018 Bilateral chronic knee pain 06/07/2017 Pulmonary hypertension ([facility]) 7 Overview (08/18/2021): Severe, cardiac cath 10/11/2016 AICD (automatic cardioverter/defibrillator) pres ent 05/23/2017 Overview (08/18/2021): Single chamber, placed in [place] [facility] #[phone], #[phone]) Anxiety and depression 05/23/2017 B12 deficiency 05/23/2017 Chronic lumbar radiculopathy 05/23/2017 OA (osteoarthritis) of knee 05/23/2017 Overview (08/18/2021): See LS xray 2017 - mod-severe DJD hips, incompletely visualized. bilateral Diabetes mellitus with diabetic cataract ([facility]) 05/23/2017 Overview (08/18/2021): Bilateral GERD (gastroesophageal reflux disease) 7 Hypercholesteremia 05/23/2017 Hypertension 05/23/2017 Mitral valve regurgitation 05/23/2017 Systolic CHF ([facility]) 05/23/2017 Overview (08/18/2021): S/p single chamber AICD EF 10-20 % Encounters Date Type Department Care Team Description 03/26/2025 2:20 PM EDT Office Visit [address] [phone] Clement Shaw DMD 03/24/2025 4:20 PM EDT Office Visit [address] [phone] Clement Shaw DMD 03/03/2025 1:00 PM EDT Office Visit [address] [phone] Clement Shaw DMD 02/24/2025 11:00 AM EDT Office Visit [address] [phone] Clement Shaw, ISMA from Last 3 Months Immunizations Immunization Administration [...] Record ed Hard to pay for: Transportation 1 01/30/2024 Housing Stability Answer Date Recorded Hard [...] Description 06/12/2025 2:00 PM EST Office Visit [facility] [address] [place] [phone] Manuel Harmon, [facility] [address] [place] [address] Health Maintenance Due Date Last Done Comments [...] 02/01/2024, 12/21/2022, 09/21/2021 Hemoglobin A1c 02/24/2025 11/25/2024, 08/07, 05/08/2024, Additional history exists Dental Prophy 03/03/2025 09/01/2024, 01/04, 07/16/2023, Additional history exists [id number] ( season) 2025 03/25/2022, 06/07/2021, 11/05/2020, Additional [...] AM EDT Complete edentulism, unspecified edentulism class HGBA1C W/MPG Routine 11/25/2024 2:15 PM EDT Type 2 diabetes mellitus with diabetic polyneuropathy, without long-term current use of insulin ([facility]) COMP PERIODONTAL EVALUATION - NEW/EST PATIENT Routine [...] hyperglycemia, without long-term current use of insulin ([facility]) Primary hypertension Hypercholesteremia LIPID PANEL Routine 06/13/2024 8:44 AM EST Type 2 diabetes mellitus with hyperglycemia, without long-term current use of insulin ([facility]) Hypercholesteremia MICROALBUMIN/CREATININ E RATIO, URINE, RANDOM Routine 02/01/2024 10:20 AM EDT Type 2 diabetes mellitus with hyperglycemia, without long-term current use of insulin ([facility]) ACUTE HEPATITIS PANEL W/RFLX Routine 12/21/2022 [...] 3:00 AM EDT) 03/19/2025 3:00 AM EDT us Carola Siddiqi PA-C SCAN IMAGING Final Result * REFERRAL SCANNED DOCUMENT (03/04/2025 3:00 AM EDT) 03/04/2025 3:00 AM EDT us Carola Siddiqi PA-C SCAN REFERRAL Final Result * (ABNORMAL) HGBA1C W/MPG (11/25/2024 2:15 PM EDT) Pathologist [facility] HEMOGLOBIN A1C 8.3(H) <5.7 % [facility] Comment: For someone without known diabetes, a [...] children. MEAN PLASMA GLUCOSE 218 mg/dL (calc) [facility] Blood Blood / Unknown 11/25/2024 2 :15 PM EDT 11/25/2024 2:16 PM EDT Narrative [facility] - 11/26/2024 4:59 AM EDT FASTING:NO Morgan Gonzalez PharmD LAB - BLOOD D RAW Final Result [facility] [address] [place] [id number], [facility] [address] [place] [phone] * (ABNORMAL) LIPID PANEL (06/13/2024 8:44 AM EST) [facility] CHOLESTEROL, TOTAL 190 <200 mg/dL [facility] HDL CHOLESTEROL 55 > OR = 40 mg/dL [facility] TRIGLYCERIDES 198(H) <150 mg/dL [facility] LDL-CHOLESTEROL 103(H) 99 mg/dL (calc) [facility] Comment: Reference range: <100 Desirable range <100 mg/dL for primary prevention; <70 mg/dL for patients with CHD or diabetic patients with > or = 2 CHD risk factors. LDL-C is now calculated using the Alessandro calculation, which is a validated novel method providing better accuracy than the Friedewald equation in the estimation of LDL-C. Eros VENCES et al. WAGNER. 2013;310(19): 3066-1359 (http://education.[employer]/faq/SAB355) CHOL/HDLC RATIO 3.5 <5.0 (calc) [facility] NON-HDL CHOLESTEROL 135(H) <130 mg/dL (calc) [facility] Comment: For patients with diabetes plus 1 major ASCVD risk factor, treating to a non-HDL-C goal of <100 mg/dL (LDL-C of <70 mg/dL) is considered a therapeutic option. Blood Blood / Unknown 06/13/2024 8 :44 AM EST 06/13/2024 8:44 AM EST Narrative [facility] - 06/14/2024 7:41 AM EST FASTING:YES Carola Siddiqi PA-C LAB - BLOOD DRAW Final Resul t [facility] [address] [address], [facility] [address] [phone] * (ABNORMAL) COMPREHENSIVE METABOLIC PANEL (06/13/2024 8:44 AM EST) GLUCOSE 167(H) 65 - 99 mg/dL [employer] Comment: Fasting reference interval For someone without known diabetes, a glucose value >125 mg/dL indicates that they may have diabetes and this should be confirmed with a follow-up test. UREA NITROGEN (BUN) 25 7 - 25 mg/dL [facility] CREATININE (blood) 1.40(H) 0.70 - 1.35 mg/dL [facility] EGFR 55(L) > OR = 60 mL/min/1. 73m2 [employer] [facility] BUN/CREATININE RATIO 18 6 - 22 (calc) [facility] SODIUM 141 135 - 146 mmol/L [facility] POTASSIUM 4.5 3.5 - 5.3 mmol/L [facility] CHLORIDE 103 98 - 110 mmol/L [facility] CARBON DIOXIDE 29 20 - 32 mmol/L [facility] CALCIUM 9.6 8.6 - 10.3 mg/dL [facility] PROTEIN, TOTAL 7.0 6.1 - 8.1 g/dL [facility] ALBUMIN 4.1 3.6 - 5.1 g/dL [facility] GLOBULIN 2.9 1.9 - 3.7 g/dL (calc) [facility] ALBUMIN/GLOBULI N RATIO 1.4 1.0 - 2.5 (calc) [facility] BILIRUBIN, TOTAL 0.6 0.2 - 1.2 mg/dL [facility] ALKALINE PHOSPHATASE 41 35 - 144 U/L [facility] AST 25 10 - 35 U/L [facility] ALT 31 9 - 46 U/L [facility] Blood Blood / Unknown 06/13/2024 8 :44 AM EST 06/13/2024 8:44 AM EST Narrative [facility] - 06/14/2024 7:41 AM EST FASTING:YES us Carola Siddiqi PA-C LAB - BLOOD DRAW Final Resul t [facility] [address] [address], [facility] [address] [phone] * MICROALBUMIN/CREATININE RATIO, URINE, RANDOM (02/01/2024 10:20 AM EDT) CREATININE, RANDOM URINE 118 20 - 320 mg/dL [facility] MICROALBUMIN 2.4 mg/dL [employer] [facility] [employer] [facility] Comment: Reference Range Not established MICROALBUMIN/CREA TININE RATIO, RANDOM URINE 20 <30 mg/g creat [facility] Comment: The ADA defines abnormalities in albumin [...] AM EDT 02/01/2024 10:21 AM EDT Narrative [facility] - 02/02/2024 6:20 PM EDT FASTING:YES us Carola COLLIER-C LAB URINE AMBULATORY Final R esult Performing Organization Address City/[facility]/ZIP Co de Phone Number [facility] [address] [address], [facility] [address] [phone] * HEPATITIS PANEL W/RFLX (12/21/2022 9:29 AM EDT) HEPATITIS A IGM ANTIBODY NON-REACT MARCELINA NON-REACT MARCELINA [facility] COMMENT [facility] HEPATITIS B SURFACE ANTIGEN NON-REACT MARCELINA NON-REACT MARCELINA [facility] HEPATITIS B CORE IGM ANTIBODY NON-REACT MARCELINA NON-REACT MARCELINA [facility] HEPATITIS C ANTIBODY NON-REACT MARCELINA NON-REACT MARCELINA [facility] SIGNAL TO CUT-OFF 0.04 <1.00 [facility] Comment: HCV antibody was non-reactive. There is no laboratory evidence of HCV infection. In most cases, no further action is required. However, if recent HCV exposure is suspected, a test for HCV RNA (test code 55834) is suggested. For additional information please refer to http://[employer]/faq/CNB81h1 (This link is being provided for informational/ educational purposes only.) Blood Blood / Unknown 12/21/2022 9 :29 AM EDT 12/21/2022 9:30 AM EDT Narrative [facility] [employer] [facility] - 12/21/2022 8:06 PM EDT FASTING:NO For additional information, please refer to http://[employer]/faq/FHO079 (This link is being provided for informational/ educational purposes only.) Carola Siddiqi PA-C LAB - BLOOD DRAW Final Resul t Performing Organization Address City/[facility]/ZIP Co de Phone Number [facility] [address] [address], [facility] [address] [phone] * REFERRAL TO OPHTHALMOLOGY (09/14/2022 3:00 AM EST) 09/14/2022 3:00 AM EST Carola Siddiqi PA-C REFERRAL Final Result from Last 3 Months or Most Recently Relevant to Health Maintenance Insurance [facility]
== END 2025-04-21 10:33 | disposition home or self-care (01) ==
LOC: HO.HMCH 09:36
PROVIDERS: PCP Internal Medicine; Visit Provider Internal Medicine
DX: I10 Essential (primary) hypertension (principal); E11.65 Type 2 diabetes mellitus with hyperglycemia; I50.22 Chronic systolic (congestive) heart failure; I48.19 Other persistent atrial fibrillation; E78.5 Hyperlipidemia, unspecified; Z13.9 Encounter for screening, unspecified

== ENCOUNTER → 2025-04-21 09:35 | Outpatient (BNVA) | payer OTHER, SELFPAY | PROVIDERS: PCP Internal Medicine; Visit Provider Internal Medicine | DX: E11.65 Type 2 diabetes mellitus with hyperglycemia (principal); E78.5 Hyperlipidemia, unspecified; R80.9 Proteinuria, unspecified; I11.0 Hypertensive heart disease with heart failure; I50.22 Chronic systolic (congestive) heart failure; I48.19 Other persistent atrial fibrillation; Z79.899 Other long term (current) drug therapy | CPT/HCPCS: 83036; 99212 ==

== ENCOUNTER 2025-05-22 14:19 | Outpatient (AMB) | payer OTHER, SELFPAY ==
--- NOTE | 2025-05-22 14:28 | MHC.OFFVIS ---
Vital Signs 05/22/25 14:34 Height 6 ft 1 in Weight 180 lb BMI 23.7 BP 151/87 H Blood Pressure Location Lt brachial Position Sitting Pulse 76 Pulse Source Pulse Oximeter Pulse Oximetry (%) 97 Oxygen Delivery Method Room Air Intake Visit Reasons: Sciatica, right side Intake Note: Pain today 8 Shopper Marketing Manager Required: Yes Shopper Marketing Manager Language: Manager Material Services: Shopper Marketing Manager Present Shopper Marketing Manager Name: Aidan Accompanied by: Self / Same As Patient Allergies No Known Allergies Allergy (Verified 05/22/25 14:34) HPI Comments Details: The patient is a 69-year-old male presenting with lower back pain. Several years ago underwent surgery to release a nerve under the spinal column, which initially alleviated his pain significantly. However, he now experiences new pain that differs from his pre-surgical symptoms, primarily affecting his groin and leg area, particularly on the right side. Additionally, the patient reports balance issues, stating that without his cane, he loses balance and tends to veer sideways. This balance problem is a new development post-surgery, and he describes his knee as giving out, contributing to his instability. The patient has a history of arthritis, which may be contributing to his current symptoms. - Onset: Post-surgical - Quality: Different from pre-surgical pain - Location: Groin and leg area, particularly on the right side - Exacerbating factors: Lack of cane leading to balance issues - Interference: Affects balance and stability - Affect: Pain impacts balance and stability - Analgesia: No specific medications discussed - Adverse Effects: None reported - Activities of Daily Living: Balance issues affect mobility - Aberrant Drug Related Behaviors: None reported [facility] Surgical History History of cataract surgery History of pacemaker History of back surgery Family History Father No problems noted. Mother Alzheimer disease Social History Housing: House Alcohol intake: current Alcohol intake frequency: holidays/special occasions only Alcohol type: beer Patient Tobacco Use Status: Never used Tobacco e-Cigarette/Vaping Use: Never Used Second Hand Smoke Exposure: No service: No Current occupational status: retired Cognitive needs: Yes Hearing needs: No Vision needs: Yes Review of Systems Const Details: - Musculoskeletal: Reports lower back pain radiating to groin and leg area, particularly on the right side. Denies pain to touch. - Neurological: Reports balance issues and knee giving out. Denies other neurological symptoms. Physical Exam Exam Exam: General: awake, alert, oriented. Answers questions appropriately. Fully engaged in examination. Skin: warm, dry, intact HEENT: Normocephalic. Hearing intact. Cardiac: External chest normal in appearance. Respiratory: No cough, audible wheezing or stridor. Abdomen: without gross distension. MS: No obvious swelling or deformities. Able to transition from sit to stand unassisted. Ambulates with bilaterally normal heel strike and toe off SLR neg bilaterally BLE strength 4/5 facet loading positive non tender over bilateral psis minimally tender over midline lumbar vertebrae and paraspinal muscles Neurological: Oriented to person, place, time and situation. Thought process intact. Ambulates with use of cane. Psychiatric: Appropriate mood and affect. Good judgment and insight. Vital Signs: Last Vital Signs Pulse 76 05/22/25 14:34 BP 151/87 H 05/22/25 14:34 Pulse Ox 97 05/22/25 14:34 Oxygen Delivery Method Room Air 05/22/25 14:34 BMI result Body Mass Index 23.7 Assessment & Plan Assessment & Plan (1) Lumbar degenerative disc disease: Code(s): M51.369 - Other intervertebral disc degeneration, lumbar region without mention of lumbar back pain or lower extremity pain Category: Medical (2) Lumbar spondylosis: Code(s): M47.816 - Spondylosis without myelopathy or radiculopathy, lumbar region Category: Medical Plan The plan includes ordering x-rays of the patient's back to assess any underlying issues contributing to his pain and balance problems. Physical therapy is recommended to improve his balance and mobility, with arrangements to find a suitable facility in [place]. Patient's will research PT offices near theyre home and call with the information so we can send the order. The patient is advised to have his contact the clinic to facilitate the physical therapy order, and a release is needed to obtain previous MRI and surgery records from [facility]. Follow-up will be scheduled after the completion of physical therapy to evaluate progress and adjust the management plan as necessary. Patient was informed and verbally consented to the use of an ambient scribe for clinic note documentation during this visit. Orders: Orders PT Evaluation and Treatment 05/22/25 M51.369 - Other intervertebral disc degeneration, lumbar region without mention of lumbar back pain or lower extremity pain XR lumbar spine 4V min Today M51.369 - Other intervertebral disc degeneration, lumbar region without mention of lumbar back pain or lower extremity pain Patient Instructions: - Arrange for x-rays of your back as soon as possible. - Begin physical therapy at a facility in [place] to improve balance and mobility. - Have your contact the clinic to facilitate the physical therapy order. - Sign a release to obtain your MRI and surgery records from [facility]. - Follow up with the clinic after completing physical therapy to evaluate your progress. Coding Level of Care Code New Pt Level 4 (13911) Complex EM visit Add On G2211 Diagnoses Lumbar degenerative disc disease M51.369 Lumbar spondylosis M47.816
[2025-05-22 14:34] VITALS: BP 151/87; PULSE 76; O2SAT 97; BMI 23.7
--- OUTSIDE RECORDS SUMMARY | 2025-05-22 16:53 | XMS_ITS | Patient Health Record ---
[facility] Address [address] [place] [address] Care Team Providers Care Machine Setter And Repairer Name Role Phone Adarsh CASTANEDA, Laura Primary Care Provider Unavail able Aravind Black Unavailable [phone] Allergies No Known Allergies Results Component Value [...] 30 days Active Tamsulosin HCl Activ e [place] 3 Active Fish Oil Not-Taking Rosuvastatin Calcium [...] Problem Acquired hammer toe of right foot (5286435157322791 ) Other hammer toe(s) (acquired), right foot (M20.41) Active confirmed Response to treatment, Improvemen t Problem Acquired hammer toe of left foot (6704270179283306 ) Other hammer toe(s) (acquired), left foot (M20.42) Active confirmed Response to treatment, Improvemen t Problem Polyneuropathy due to type 2 diabetes mellitus (995267851) Type 2 diabetes mellitus with diabetic polyneuropathy (E11.42) Active confirmed Vital Signs Blood pressure diastolic 72 mm Hg 03/16/2025 Height 6ft 1in in 03/16/2025 Blood pressure systolic 128 mm Hg 03/16/2025 Weight 177 lbs 03/16/2025 BMI 23.35 kg/m2 03/16/2025 Procedures Procedure Date Ordered Date Performed Result Body Sit e 40794-RZKHZTN NAIL, 6 OR MORE 06/12/2024 N/A 42745-LOYT SKIN LESIONS, OVER 4 06/12/2024 N/A 03733-CRFYVEZ NAIL, 6 OR MORE 09/11/2024 N/A 45975-COHC SKIN LESIONS, OVER 4 09/11/2024 N/A 41474-UBYQMEK NAIL, 6 OR MORE 12/08/2024 N/A 51700-FYIW SKIN LESIONS, OVER 4 12/08/2024 N/A 59205-KXMLLGS NAIL, 6 OR MORE 03/16/2025 N/A 30143-EQOB SKIN LESIONS, OVER 4 03/16/2025 N/A Encounters Encounter Location Date Provider Diagnosis [address] [address] 06/12/2024 Aravindstanford SarabiaSofia Type 2 diabetes mellitus with diabetic polyneuropathy E11.42 ; Tinea unguium B35.1 ; Other hammer toe(s) (acquired), right foot M20.41 and Other hammer toe(s) (acquired), left foot M20.[address] [address] 09/11/2024 Aravindstanford Black Type 2 diabetes mellitus with diabetic polyneuropathy E11.42 ; Tinea unguium B35.1 ; Other hammer toe(s) (acquired), right foot M20.41 and Other hammer toe(s) (acquired), left foot M20.[address] [address] 12/08/2024 Aravindstanford Black Type 2 diabetes mellitus with diabetic polyneuropathy E11.42 ; Tinea unguium B35.1 and Xerosis of skin L85.[address] [address] 03/16/2025 Aravind Sofia Type 2 diabetes mellitus [...] Treatment Pending Test Test Name Order Date 78535-UPCIGSR NAIL, 6 OR MORE 12/01/2020 71578-CXLRCJZ NAIL, 6 OR MORE 03/02/2021 08680-HGREZHL NAIL, 6 OR MORE 06/01/2021 79727-ZTAMICN NAIL, 6 OR MORE 08/31/2021 02398-RACAFNF NAIL, 6 OR MORE 11/30/2021 31525-ZTLBHRH NAIL, 6 OR MORE 03/01/2022 82722-BSRCDDN NAIL, 6 OR MORE 05/31/2022 48269-TMFXXSM NAIL, 6 OR MORE 08/30/2022 81440-FHNRFVJ NAIL, 6 OR MORE 11/29/2022 57345-AOHRTMA NAIL, 6 OR MORE 02/28/2023 75581-YPGNCUR NAIL, 6 OR MORE 05/30/2023 35488-JVMGHPZ NAIL, 6 OR MORE 09/12/2023 31372-AJRJJPZ NAIL, 6 OR MORE 12/06/2023 93730-MJWGUPQ NAIL, 6 OR MORE 03/06/2024 20473-JPPFMBW NAIL, 6 OR MORE 06/12/2024 38714-RTNBNPJ NAIL, 6 OR MORE 09/11/2024 31158-FEPOGGV NAIL, 6 OR MORE 12/08/2024 28680-FJOGIYE NAIL, 6 OR MORE 03/16/2025 34067-Gyxjrmbf Plate 03/06/2024 67956-Fxixkrcw Plate 12/06/2023 51519-Bxoxroga Plate 09/12/2023 73009-Isgxuqzl Plate 06/01/2021 58459-Apqpmfbv Plate 05/30/2023 17083-Uexyadvy Plate 02/28/2023 78432-Mzvasfxm Plate 11/29/2022 45031-Pzbtvoml Plate 08/30/2022 15492-Danwnrun Plate 05/31/2022 89428-Cnwxqphf Plate 03/01/2022 78410-Zysfameq Plate 11/30/2021 18891-Kllxvwqj Plate 08/31/2021 36576-Hbzzfjch Plate Each Additional 08/2023 64353-Slwjgpuv Plate Each Additional 09/2023 00601-LAWD SKIN LESIONS, OVER 4 03/16/20 25 96002-XJUX SKIN LESIONS, OVER 4 12/09/19 25 46505-VIXR SKIN LESIONS, OVER 4 09/11/19 25 98379-CHCA SKIN LESIONS, OVER 4 06/12/20 24 57647-JCPM SKIN LESIONS, OVER 4 03/06/20 24 14990-JQGE SKIN LESIONS, OVER 4 09/12/19 24 48364-WBFK SKIN LESIONS, OVER 4 12/06/19 24 54698-ASIO SKIN LESIONS, OVER 4 11/30/19 23 55034-YDCZ SKIN LESIONS, OVER 4 02/29/20 23 92579-WOBI SKIN LESIONS, OVER 4 05/30/20 23 20066-BYEC SKIN LESIONS, OVER 4 08/31/19 22 80668-EGCH SKIN LESIONS, OVER 4 06/01/20 21 34959-BYWP SKIN LESIONS, OVER 4 03/02/20 21 19889-JRKL SKIN LESIONS, OVER 4 12/02/19 21 48128-SAGM SKIN LESIONS, OVER 4 12/01/19 22 69377-AJVW SKIN LESIONS, OVER 4 03/01/20 22 79995-CZDJ SKIN LESIONS, OVER 4 05/31/20 22 80396-QTZY SKIN LESIONS, OVER 4 08/30/19 23 Next Appt Details Provider Name:Aravind Black , 09/10/2025 02:30:00 PM, [address] [facility], [place], [address], Insurance Providers Payer Name Payer Address Payer Phone Subscriber Number Group Number Insured Name Patient Relationship to Insured Coverage Start Date Coverage End Date [facility] [employer] Claims [address] [place] [id number] Ayaan Le Self - patient is the insured Medical (General) History Medical History History ICD Code Arthritis Back,Hip,and Knee pain CAD Cataracts Cholesterol Diabetes mellitus Heart disease Surgical History Surgery Date(Month/Year) eye surgery (cataract) 02/2023 back 2022 cataract surgery 2023
--- OUTSIDE RECORDS SUMMARY | 2025-05-22 16:53 | XMS_ITS | Clinical Summary ---
Author Organization [address] [place] [address] [place] [address] Phone Care Team Providers Care Contract Recruiter Name Role Phone Carola Siddiqi Primary Care Provider [phone] Allergies No known active allergies Medications tadalafiL (CIALIS) 5 mg tablet Active acetaminophen (TYLENOL 8 HOUR) 650 mg 8 hr tablet Take 1 Tablet by mouth 2 times daily for 30 days. 3 Active finasteride (PROSCAR) 5 mg tablet Take 5 mg by mouth daily. Active cholecalciferol (VITAMIN D-3) 25 mcg (1,000 unit) tablet Take 1 tablet by mouth daily. Active FREESTYLE LANCETS [facility] Use to check blood sugar once a [...] two tablets in the afternoon Active omega 6-tzg-fve-fish oil (Fish OiL) 1,000 (120-180) mg capsule [...] onset Alzheimer's roshan ntia without behavioral disturbance ([facility] V24, [facility] V28) 08/18/2021 Longstanding persistent atri al fibrillation ([facility] V24, [facility] V28) 06/21/2021 Overview (03/04/2025): Rate control strategy [...] Heart failure with reduced e jection fraction ([facility] V24, [facility] V28) 06/15/2021 Microalbuminuria 04/05/2021 Type II diabetes mellitus wi th renal manifestations ([facility] V24, [facility] V28) 04/05/2021 Diabetic polyneuropathy asso ciated with type 2 diabetes mellitus ([facility] V24, [facility] V28) 12/24/2019 Overview (05/13/2024): Used to see podiatry (Dr. Hoyt) Benign prostatic hyperplasia with urinary hesita ncy 12/22/2019 Degenerative joint disease (DJD) of hip 10/02/19 Overview (05/13/2024): See LS xray 2017 - mod-severe DJD hips, incompletely visualized. Internal hemorrhoids 06/20/2019 CKD (chronic kidney disease) stage 3, GFR 30-59 ml/min ([facility] V24, [facility] V28) 11/21/2018 Chronic pain of left knee 06/07/2017 Anxiety and depression 05/23/2017 B12 deficiency 05/23/2017 Chronic lumbar radiculopathy 05/23/2017 Diabetes mellitus with diabe tic cataract ([facility] V24, [facility] V28) 05/23/2017 Overview (05/13/2024): Bilateral GERD (gastroesophageal [...] recent heart failure hospitalizations -Cardiac catheterization in [place] in 2017 without significant coronary artery disease -LVEF initially 25% -Seen in the [facility] heart failure and transplant clinic, found [...] 05/23/2017 Overview (09/03/2024): Single chamber, placed in [place] ([facility] #[phone], #[phone]) -Most recent device check from June 2024 [...] Description 04/07/2025 1:10 PM EDT Office Visit [facility] [address] [place] [phone] Josh Li NP FAGAN (dyspnea on exertion) (Primary Dx); Chronic systolic congestive heart failure (CMS/HCC V24, CMS/HCC V28); Orthostatic hypotension; AICD (automatic cardioverter/defibril lator) present; Hypertension, unspecified type; Hypercholesteremia 04/02/2025 1:00 PM EDT Ancillary Procedure [facility] [address] [place] [phone] Encounter for adjustment or management of cardiac device 03/19/2025 12:00 PM EDT Ancillary Procedure [facility] [address] [place] [address] FAGAN (dyspnea on exertion) 03/04/2025 10:40 AM EDT Office Visit [facility] [address] [place] [address] Josh Li NP Atrial fibrillation, unspecified type (CMS/HCC V24, CMS/HCC V28) (Primary Dx); Hypercholesteremia; Chronic systolic congestive heart failure (CMS/HCC V24, CMS/HCC V28); FAGAN (dyspnea on exertion); AICD (automatic cardioverter/defibril lator) present; Orthostatic hypotension; Longstanding persistent atrial fibrillation (CMS/HCC V24, CMS/HCC V28); Hypertension, unspecified type from Last 3 Months Immunizations Immunization Administration Dates Next Due Influenza Quadravalent, MDCK [...] Type 2 diabetes mellitus (CM S/HCC V24, CMS/[facility] V28) 05/23/2017 DX:Type 2 diabetes mellitus ([facility]) Hypercholesteremia 05/23/2017 DX:Hyperchole steremia Hypertension 05/23/2017 DX:Hypertension OA (osteoarthritis) of knee 05/23/2017 DX:O A (osteoarthritis) of knee; COMMENT: bilateral Mitral valve regurgitation 05/23/2017 DX:Mi tral valve regurgitation AICD (automatic cardioverter/defibrillator) present 05/23/2017 DX:AICD (automatic cardioverter/defibrillator) present; COMMENT: Single chamber, placed in [place] ([facility] #[phone], #[phone]) Systolic CHF (CMS/[facility] V24, CMS/[facility] V28) 05/23/20 17 DX:Systolic CHF ([facility]); COMMENT: S/p single chamber AICD EF 10-20 % PAF (paroxysmal atrial fibri llation) ([facility] V24, [facility] V28) 05/23/2017 DX:PAF (paroxysmal atrial fibrillation) ([facility]); COMMENT: On chronic coumadin Chronic lumbar radiculopathy 05/23/2017 DX: Chronic lumbar radiculopathy B12 deficiency 05/23/2017 DX:B12 deficienc y GERD (gastroesophageal reflux disease) DX:GERD (gastroesophageal reflux disease) Anxiety and depression 05/23/2017 DX:Anxiet y and depression Old [place] (myocardial infarction) 06/01/2017 D X:Old [place] (myocardial infarction) Pulmonary hypertension ([facility] V24, [facility] V28) 06/01/2017 DX:Pulmonary hypertension (H CC); COMMENT: [...] Care Team (Late st Contact Info) Description 05/28/2025 11:00 AM EDT Appointment [facility] [address] [place] [address] 07/08/2025 1:00 PM EST Ancillary Procedure [facility] [address] [facility] [address] [place] [address] 11/25/2025 4:45 PM EDT Office Visit Nephrology - [place] [address] [place] [address] Haile Bey MD [address] [place] [address] Health Maintenance Due Date Last Done Comments Diabetes: Annual Foot Exam 1965 Diabetes: Annual Retina Eye Exam 1965 RSV Immunization Adult Patients (1 - Risk 50-74 years 1-dose series) 2005 Falls Risk Assessment 07/15/2022 Medicare Annual Wellness [...] this topic Medical Devices Implanted Type Area Supervisor Opening And Picking Device Identifier Shelf Expiration Date Model / Serial / Lot Medt-Card Visia Af Mri Vr [id number] 9/2017 Implanted:04/2017 (Quantity not on file) Cardiac ICD Left: Chest [employer] - CARDIAC RHYTH-CRDM VISIA AF MRI VR [id number] / [id number] / Procedures Procedure Name Priority Date/Time [...] Results * [facility]ARDIAC DEVICE [facility] (04/02/2025 1:35 PM EDT) Date Time Interrogation Session [id number] CV DEVICE CHECK Implantable Pulse Generator Supervisor Opening And Picking MDT CV DEVICE CHECK Implantable Pulse Generator Type ICD CV DEVICE CHECK Implantable Pulse Generator Model Visia AF MRI VR [id number] CV DEVICE CHECK Implantable Pulse Generator Serial Number [id number] CV DEVICE CHECK Battery Status Middle of Service CV DEVICE CHECK Tristan Statistic RV Percent Paced 0.10 CV DEVICE CHECK Atrial Tachy Statistic AT/AF [place] Percent 100.00 CV DEVICE CHECK Lead Channel [...] factors include hyperlipidemia, diabetes, and hypertension. A wind turbine electrical engineer was used for today's visit. Baseline ECG [...] ms GEMUSE QTc 449 ms GEMUSE R [place] -38 degrees GEMUSE T [place] -43 degrees GEMUSE ECG Interpretation Atrial fibrillation Left axis deviation Nonspecific T wave abnormality No previous ECGs available Confirmed by NICK FELDMAN ([id number]) on 03/23/2025 11:24:03 AM GEMUSE 03/04/2025 10:4 6 AM EDT 03/23/2025 11:24 AM EDT Josh Li NP ECG ORDERABLES Edited Result - Final GEMUSE * Urine Albumin Creatinine Ratio (02/01/2024) Pathologist [facility] Urine Albumin Creatinine Ratio Abstracted Historical Provider HEALTH MAINTENANCE Final Result * Annual BMP Blood Test (02/01/2024) [facility] Annual BMP Blood Test Abstracted Result [facility] Provider HEALTH MAINTENANCE Final Result * Hemoglobin A1c (02/01/2024) [facility] Hemoglobin A1C 0.0 % Comment:No interpretation, A bstracted Blood Venous blood specimen / Unknown Result [facility] Provider LAB BLOOD ORDERABLES [place] Result * Lipid panel (02/01/2024) [facility] Triglycerides 0 mg/dL Comment:No interpretation, A bstracted Cholesterol 0 mg/dL Comment:No interpretation, A bstracted HDL 0 mg/dL Comment:No interpretation, A bstracted LDL Cholesterol 0 mg/dL Comment:No interpretation, A bstracted Blood Venous blood specimen / Unknown Result [facility] Provider LAB BLOOD ORDERABLES [place] Result * Colonoscopy (03/21/2023) [facility] Colonoscopy No interpretation , Abstracted Anatomical Region Laterality Modality Other Result [facility] Provider HEALTH MAINTENANCE Final Result * Hepatitis C Screening (12/21/2022) [facility] Hepatitis C Screening Abstracted Result [facility] Provider HEALTH MAINTENANCE Final Result from Last 3 Months or Most Recently Relevant to Health Maintenance Insurance [facility] Member Subscriber Plan / Payer (Ef fective 2020-Present) Name:AYAAN FUNES Relation to Subscriber:Self Name:Ayaan Funes Payer ID:[id number] Group ID:[id number] Type:Not on file Address: [place] [address] [place] [address] Care Teams Contract Recruiter Relationship Specialty Start Date End Date Carola Siddiqi PA [facility] [place] [address] PCP - General 07/21/22
== END 2025-05-22 15:05 | disposition home or self-care (01) ==
LOC: HO.PMC 14:20
PROVIDERS: PCP Internal Medicine; Visit Provider Registered Nurse Emergency
DX: M51.369 Other intervertebral disc degeneration, lumbar region without mention of lumbar back pain or lower extremity pain (principal); M47.816 Spondylosis without myelopathy or radiculopathy, lumbar region
CPT/HCPCS: 99204; G2211

== ENCOUNTER → 2025-05-22 14:19 | Outpatient (BNVA) | payer OTHER, SELFPAY | PROVIDERS: PCP Internal Medicine; Visit Provider Registered Nurse Emergency | DX: M47.816 Spondylosis without myelopathy or radiculopathy, lumbar region (principal); M51.369 Other intervertebral disc degeneration, lumbar region without mention of lumbar back pain or lower extremity pain | CPT/HCPCS: 99202 ==

== ENCOUNTER 2025-05-25 11:54 | Outpatient (REF) | payer OTHER, SELFPAY ==
--- NOTE | ~2025-05-25 | XR_ITS ---
EXAMINATION: XR LUMBAR SPINE 4 OR MORE VIEWS HISTORY: M51.369 - Other intervertebral disc degeneration, lumbar region without ... COMPARISON: There are no prior studies for comparison. FINDINGS: AP, lateral, bilateral oblique, and coned down views of the lumbar spine are submitted. Osseous mineralization is normal. Five nonrib-bearing lumbar vertebral bodies are identified, maintaining normal height and alignment without evidence of fracture or spondylolisthesis. There is mild to moderate degenerative disc disease with disc space narrowing and osteophyte formation. There is osteoarthritis of the lower lumbar facet joints. There is probable spondylolysis of L5 on the left. There is calcification of the abdominal aorta. XR/XR lumbar spine 4V min IMPRESSION: Mild to moderate degenerative disc disease. Probable spondylolysis of L5 on the left. Electronically signed by: Dave Rajput MD 05/25/2025 12:18 PM EDT
== END 2025-05-25 11:55 | disposition home or self-care (01) ==
LOC: HO.XRAY 11:54
PROVIDERS: PCP Internal Medicine; Visit Provider Registered Nurse Emergency
DX: M51.369 Other intervertebral disc degeneration, lumbar region without mention of lumbar back pain or lower extremity pain (principal)
CPT/HCPCS: 72110

== ENCOUNTER → 2025-05-25 11:59 | Outpatient (BNV) | payer OTHER, SELFPAY | PROVIDERS: PCP Internal Medicine; Visit Provider Radiology Diagnostic Radiology | DX: M51.369 Other intervertebral disc degeneration, lumbar region without mention of lumbar back pain or lower extremity pain (principal) | CPT/HCPCS: 72110 ==